=== PATIENT | male | born 1945 | race Caucasian/White ===

== ENCOUNTER → 2018-01-28 15:22 | Outpatient (CLI) | payer MEDICARE, OTHER, SELFPAY ==
[2018-01-28 15:57] LABS: Abs Immature Grans 0.02 k/cumm (0.0-0.09); Absolute Basophil Count 0.01 k/cumm (0.0-0.2); Absolute Eosinophil Count 0.35 k/cumm (0.0-0.7); Absolute Lymphocyte Count 1.21 k/cumm (1.2-3.4); Absolute Monocyte Count 0.42 k/cumm (0.11-0.7); Absolute Neutrophil Count 4.27 k/cumm (1.2-6.7); Basophils % 0.2; Eosinophils % 5.6; HCT 40.1 % (40.0-50.0); HGB 13.3 g/dL (13.5-17.5); Immature Grans % 0.3; Lymphocytes % 19.3; Mean Corp. HGB Concentration 33.2 g/dL (32.0-36.0); Mean Corpuscular Hemoglobin 30.9 pg (27.0-33.0); Mean Platelet Volume 10.1 fL (8.0-11.0); Monocytes % 6.7; Neutrophils % 67.9; Platelet Count 201 x1000/uL (130-400); RBC 4.31 m/cumm (4.50-6.00); RBC Distribution Width 13.1 % (11.8-14.1); White Blood Cell Count 6.28 k/cumm (4.4-10.8)
[2018-01-28 16:56] LABS: Iron 59 ug/dL (50-175)
[2018-01-28 17:21] LABS: ALT 22 U/L (12-78); AST 17 U/L (15-37); Albumin 4.1 g/dL (3.4-5.0); Alkaline Phosphatase 69 U/L (46-116); Anion Gap 9.8 mmol/L (3-11); BUN 30 mg/dL (7-18); Bilirubin, Total 0.3 mg/dL (0.2-1.0); CO2 24.2 mmol/L (21.0-32.0); CREATININE 1.43 mg/dL (0.70-1.30); Calcium 8.5 mg/dL (8.5-10.1); Chloride 103 mmol/L (98-107); Estimated GFR 48.48 (mL/min/1.73m2); Ferritin 125 ng/mL (8-388); Glucose 111 mg/dL (70-100); Potassium 4.7 mmol/L (3.5-5.1); Sodium 137 mmol/L (136-145); TSH 0.81 uIU/mL (0.358-3.74); Total Protein 7.2 g/dL (6.4-8.2); Vitamin B12 668 pg/mL (193-986)
[2018-01-30 13:16] LABS: Total Protein 6.8 g/dl (6.3-8.2)
== END ==
PROVIDERS: PCP Family Medicine; Visit Provider Family Medicine
DX: R53.83 Other fatigue (principal); E53.8 Deficiency of other specified B group vitamins; I25.810 Atherosclerosis of coronary artery bypass graft(s) without angina pectoris; R79.89 Other specified abnormal findings of blood chemistry
CPT/HCPCS: 36415; 80053; 82607; 82728; 83540; 84165; 84443; 85025

== ENCOUNTER 2018-03-07 13:40 | Outpatient (CLI) | payer MEDICARE, OTHER, SELFPAY ==
[2018-03-07 14:58] LABS: Anion Gap 5.3 mmol/L (3-11); BUN 21 mg/dL (7-18); CO2 29.7 mmol/L (21.0-32.0); CREATININE 1.28 mg/dL (0.70-1.30); Calcium 8.6 mg/dL (8.5-10.1); Chloride 105 mmol/L (98-107); Estimated GFR 55.09 (mL/min/1.73m2); Glucose 88 mg/dL (70-100); Potassium 4.8 mmol/L (3.5-5.1); Sodium 140 mmol/L (136-145)
== END 2018-03-07 14:00 ==
PROVIDERS: PCP Family Medicine; Visit Provider Family Medicine
DX: R79.89 Other specified abnormal findings of blood chemistry (principal)
CPT/HCPCS: 36415; 80048

== ENCOUNTER 2018-04-02 13:13 | Outpatient (CLI) | payer MEDICARE, OTHER, SELFPAY ==
--- NOTE | 2018-04-02 13:08 | DI.RAD_ITS ---
SYMPTOMS/DIAGNOSIS: RT KNEE PAIN RIGHT KNEE: AP and PA projections of the right knee reveal medial tibiofemoral joint space narrowing, articular sclerosis and mild periarticular hypertrophic spurring. The findings consistent with severe DJD.
== END 2018-04-02 13:33 ==
PROVIDERS: PCP Family Medicine; Referring Provider Family Medicine; Visit Provider Student in an Organized Health Care Education/Training Program
DX: M25.561 Pain in right knee (principal); M17.11 Unilateral primary osteoarthritis, right knee
CPT/HCPCS: 20610; 99204; 99214; 73560; J1040

== ENCOUNTER 2018-06-02 09:01 | Outpatient (CLI) | payer MEDICARE, OTHER, SELFPAY ==
[2018-06-02 11:14] LABS: HCT 40.1 % (40.0-50.0); HGB 13.1 g/dL (13.5-17.5); Mean Corp. HGB Concentration 32.7 g/dL (32.0-36.0); Mean Corpuscular Hemoglobin 30.9 pg (27.0-33.0); Mean Corpuscular Volume 94.6 fL (80-95); Mean Platelet Volume 10.4 fL (8.0-11.0); Platelet Count 179 x1000/uL (130-400); RBC 4.24 m/cumm (4.50-6.00); RBC Distribution Width 13.5 % (11.8-14.1)
[2018-06-02 11:55] LABS: ALT 18 U/L (12-78); AST 12 U/L (15-37); Albumin 3.9 g/dL (3.4-5.0); Alkaline Phosphatase 59 U/L (46-116); Anion Gap 6.6 mmol/L (3-11); BUN 17 mg/dL (7-18); Bilirubin, Total 0.4 mg/dL (0.2-1.0); CO2 28.4 mmol/L (21.0-32.0); CREATININE 1.19 mg/dL (0.70-1.30); Calcium 8.9 mg/dL (8.5-10.1); Chloride 106 mmol/L (98-107); Cholesterol 114 mg/dL (50-200); Estimated GFR 59.76 (mL/min/1.73m2); Ferritin 63 ng/mL (8-388); Glucose 87 mg/dL (70-100); HDL Cholesterol 32 mg/dL (40-60); LDL CHOLESTEROL 45 mg/dL (<100); Potassium 4.7 mmol/L (3.5-5.1); Sodium 141 mmol/L (136-145); Total Protein 6.6 g/dL (6.4-8.2); Triglyceride 232 mg/dL (30-150)
[2018-06-02 14:11] LABS: Iron 56 ug/dL (50-175); Total Iron Binding Capacity 274 ug/dL (250-450); Transferrin Sat 20 % (20-55)
== END 2018-06-02 09:21 ==
PROVIDERS: PCP Family Medicine; Visit Provider Family Medicine
DX: D64.9 Anemia, unspecified (principal); I10 Essential (primary) hypertension; I25.10 Atherosclerotic heart disease of native coronary artery without angina pectoris; I48.91 Unspecified atrial fibrillation
CPT/HCPCS: 36415; 80053; 80061; 83721; 85027; 82728; 83540; 83550

== ENCOUNTER 2018-07-02 00:11 | Outpatient (CLI) | payer MEDICARE, SELFPAY ==
--- NOTE | 2018-07-02 08:30 | ETT_ITS ---
*[facility]* *[facility]* [address] [place] [address] Stress Electrocardiography Sam protocol Date of study: 07/02/2018 *PATIENT PRESENTATION* Height: 170.2cm (67in) Blood Pressure: Weight: 88.6kg (195lb) BSA: 2.07m^2 Referring physician: Deny Kimball Ordering physician: Deny Kimball Impressions: Normal study after maximal exercise. Summary: 1. Stress ECG conclusions: The stress ECG is negative. Wheeler treadmill score: 9. This score predicts a low risk of cardiac events. 2. Stress: The target heart rate was achieved. The heart rate response to stress is normal. There is a normal resting blood pressure with an appropriate response to stress. The patient experienced no chest pain during stress. Exercise capacity is above normal for age. Indication: I25.10, Appropriate Use Criteria: A (Appropriate). History: REASON FOR TESTING: STRESS TEST ORDERED BY DR. KIMBALL FOR PATIENT WITH CORONARY ARTERY DISEASE. TESTING TODAY FOR PRE OP SCREENING FOR KNEE SURGERY AND CDL SCREENING. SIGNIFICANT PAST MEDICAL HISTORY: S/P CABG IN NOVEMBER 2016/AORTIC VALVE REPLACEMENT WITH POSTOP COMPLICATION OF ATRIAL FIBRILLATION. STENT PLACEMENT. OBSTRUCTIVE SLEEP APNEA. SMOKING STATUS: REMOTE HISTORY--5 YEAR PACK PER DAY HISTORY WHEN PATIENT WAS IN HIS 20'S. EXERCISE ROUTINE: DAILY ADL'S AND 20-30 MINUTES OF YOGA PER DAY. Risk factors: Family history of coronary artery disease. Dyslipidemia. Cholesterol: 114mg/dl. HDL: 32mg/dl. LDL: 45mg/dl. Triglycerides: 232mg/dl. ALLERGIES: TERBINAFINE, DICLOFENAC. MEDICATIONS: ASPIRIN 325 MG DAILY, TIMOLOL MALEATE DAILY, RANITIDINE 150 MG DAILY, TRIAMCINOLONE ACETONIDE TID PRN, VITAMIN D 2000 UNITS DAILY, NITROGLYCERINE 0.4 MG SUBLINGGUAL PRN, VITAMIN B 12 IM 1000 MCG EVERY MONTH, SILDENAFIL PRN, MELOXICAM 25 MG DAILY PRN, FERROUS GLYCONATE 240 MG DAILY, LOVASTATIN 10 MG DAILY, GABAPENTIN 800 MG HS, LISINOPRIL 5 MG DAILY, PRAMIPEXOLE 0.125 MG HS, CITALOPRAM 30 MG DAILY, MIRTAZAPINE 7.5 MG DAILY, ZANTAC 75 MG DAILY, TYLENOL 1000 MG PRN, BLUCOSAMINE 500 MG BID. Protocol: Sam protocol. Baseline ECG: SINUS RHYTHM. T WAVE INVERSIONS IN INFERIOR LEADS. MILD ST ELEVATION NOTED IN LEADS V1, V2 & V3. HR [address] and T wave changes. Stress protocol: + +---+ + !Stage !HR !BP (mmHg) ! + +---+ + !Baseline supine !77 !140/80 (100)! + +---+ + !Baseline standing !73 !148/78 (101)! + +---+ + !Stage I; 1.7mph, 10degrees; 3 min !98 !164/70 (101)! + +---+ + !Stage II; 2.5mph, 12degrees; 3 min!105!160/78 (105)! + +---+ + !Recovery; 1 min !103!218/90 (133)! + +---+ + !Recovery; 3 min !86 !170/90 (117)! + +---+ + * Stress results: STRESS TEST ENDED 9 IN MINUTES DUE TO KNEE DISCOMFORT AND FATIGUE NORMAL HEART RATE AND BLOOD PRESSURE RESPONSE TO EXERCISE MAX HEART RATE = 128 87 % OF TARGET HEART RATE APPROXIMATE MET'S ACHIEVED = 10.16 RARE PVC NO ANGINA NO SIGNIFICANT ST SEGMENT CHANGES ABOVE AVERAGE FUNCTIONAL CAPACITY FOR EXERCISE Maximal heart rate during stress was 128bpm (88% of maximal predicted heart rate). The maximal predicted heart rate was 146bpm. The target heart rate was achieved. The heart rate response to stress is normal. There is a normal resting blood pressure with an appropriate response to stress. The rate-pressure product for the peak heart rate and blood pressure was 57052mi Hg/min. The patient experienced no chest pain during stress. Exercise capacity is above normal for age. Stress ECG: The stress ECG is negative. Wheeler treadmill score: 9. This score predicts a low risk of cardiac events. Study data: Lionel Arellano MD supervised and was readily available during the procedure. This study was interpreted by [facility]. Study status: Routine. Consent: The risks, benefits, and alternatives to the procedure were explained to the patient and informed consent was obtained. Procedure: Initial setup. A baseline ECG was recorded. Surface ECG leads and manual cuff blood pressure measurements were monitored. Heart sounds: Normal. Lung sounds: Normal. Treadmill exercise testing was performed using the Sam protocol. Study completion: The patient tolerated the procedure well and was discharged from the lab. Discharge: The patient left the laboratory in stable condition. Birthdate: Patient birthdate: 1945. Sex: Gender: male. Study date: Study date: 07/02/2018. Study time: 08:30 AM. Signature Documentation: The Stress ECG portion of this study was interpreted by Lionel Arellano MD. Electronically signed by Lionel Arellano 07/02/2018 10:49
== END 2018-07-02 00:31 ==
PROVIDERS: PCP Family Medicine; Visit Provider Internal Medicine Cardiovascular Disease
DX: I25.10 Atherosclerotic heart disease of native coronary artery without angina pectoris (principal); I48.91 Unspecified atrial fibrillation; E78.5 Hyperlipidemia, unspecified; Z95.2 Presence of prosthetic heart valve; Z95.1 Presence of aortocoronary bypass graft
CPT/HCPCS: 93016; 93018; 93017

== ENCOUNTER → 2018-07-11 10:10 | Outpatient (BNVA) | payer MEDICARE, OTHER, SELFPAY | PROVIDERS: PCP Family Medicine; Visit Provider Internal Medicine Cardiovascular Disease | DX: Z01.810 Encounter for preprocedural cardiovascular examination (principal); I25.10 Atherosclerotic heart disease of native coronary artery without angina pectoris; Z95.2 Presence of prosthetic heart valve; E78.5 Hyperlipidemia, unspecified; I10 Essential (primary) hypertension | CPT/HCPCS: 99214 ==

== ENCOUNTER 2018-09-17 10:57 | Outpatient (CLI) | payer MEDICARE, OTHER, SELFPAY ==
[2018-09-17 11:32] LABS: C-Reactive Protein 0.35 mg/dL (0.0-0.3)
[2018-09-17 12:33] LABS: ESR 15 MM/HR (1-20)
== END 2018-09-17 11:17 ==
PROVIDERS: PCP Family Medicine; Visit Provider Orthopaedic Surgery
DX: Z96.651 Presence of right artificial knee joint (principal)
CPT/HCPCS: 36415; 85652; 86140

== ENCOUNTER → 2018-10-31 14:23 | Outpatient (BNVA) | payer MEDICARE, OTHER, SELFPAY | PROVIDERS: PCP Family Medicine; Visit Provider Internal Medicine Cardiovascular Disease | DX: I25.10 Atherosclerotic heart disease of native coronary artery without angina pectoris (principal); I10 Essential (primary) hypertension; Z95.3 Presence of xenogenic heart valve; Z99.89 Dependence on other enabling machines and devices; Z96.651 Presence of right artificial knee joint | CPT/HCPCS: 99213 ==

== ENCOUNTER 2018-11-12 11:42 | Outpatient (CLI) | payer MEDICARE, OTHER, SELFPAY ==
--- NOTE | 2018-11-12 12:40 | MERGE_ITS ---
*[facility]* *[facility]* [address] [place] [address] Date of study: 11/12/2018 Transthoracic Echocardiography M-mode, complete 2D, complete spectral Doppler, and color Doppler *STUDY CONCLUSIONS* Impressions: Marginal increase of trans-prosthetic gradients, most likely due to higher cardiac output. Otherwise no significant changes compared to [place] [facility] [place] Summary: 1. Left ventricle: The cavity size was normal. Wall thickness was increased in a pattern of mild LVH. Systolic function was normal. The estimated ejection fraction was 60-65%. Wall motion was normal; there were no regional wall motion abnormalities. Doppler parameters are consistent with high ventricular filling pressure. 2. Aortic valve: A 23 mm bioprosthesis was present and functioning normally. Transvalvular velocity was increased more than expected, due to high cardiac output. There was no stenosis. There was mild regurgitation. Peak velocity (S): 3.1m/sec (postop 2.6 m/sec) Mean gradient (S): 21.1mm Hg (postop 14 mmHg). VTI ratio of LVOT to aortic valve: 0.43. 3. Left atrium: The atrium was mildly dilated. 4. Right ventricle: The cavity size was normal. Wall thickness was normal. Systolic function was normal. *PATIENT PRESENTATION* Height: 170.2cm ((67in) ) S/D Pressure: 118 / 65 Weight: 89.8kg ((197.6lb) ) BSA: 2.09m^2 Test start time: 12:45 PM. Test stop time: 01:45 PM. PERFORMING Unknown ORDERING Deny Kimball REFERRING Deny Kimball CONSULTING Swetha Chaidez [facility] ADVANCED NURSING PROFESSOR Shiela Hoppe, RT De La CruzR)(CT), [facility] *PROCEDURE DATA* Procedure information: The patient was identified by two identifiers. This study was interpreted by [facility]. Pertinent images and digital data are archived for permanent storage and are available for subsequent review. Comparison was made to the study of 12/08/2015. Study status: Routine. Transthoracic echocardiography. M-mode, complete 2D, complete spectral Doppler, and color Doppler. A Transthoracic Echocardiogram was performed. Scanning was performed from the parasternal, apical, subcostal, and suprasternal notch acoustic windows. Images were obtained using an [id number] cardiac ultrasound machine. Image quality was adequate. Study completion: The patient tolerated the procedure well. There were no complications. History: PMH: CAD AVR AI i35.1. *CARDIAC ANATOMY* Left ventricle: The cavity size was normal. Wall thickness was increased in a pattern of mild LVH. Systolic function was normal. The estimated ejection fraction was 60-65%. Wall motion was normal; there were no regional wall motion abnormalities. Findings consistent with diastolic dysfunction. Doppler parameters are consistent with high ventricular filling pressure. Aortic valve: A 23 mm bioprosthesis was present and functioning normally. Mobility was not restricted. Doppler: Transvalvular velocity was increased more than expected, due to high cardiac output. There was no stenosis. There was mild regurgitation. VTI ratio of LVOT to aortic valve: 0.43. Valve area (VTI): 1.3cm^2. Indexed valve area (VTI): 0.6cm^2/m^2. Peak velocity ratio of LVOT to aortic valve: 0.42. Valve area (Vmax): 1.2cm^2. Indexed valve area (Vmax): 0.6cm^2/m^2. Mean velocity ratio of LVOT to aortic valve: 0.44. Valve area (Vmean): 1.3cm^2. Indexed valve area (Vmean): 0.6cm^2/m^2. Mean gradient (S): 21.1mm Hg (postop 14 mmHg). Peak gradient (S): 37.7mm Hg. Aorta: Aortic root: The aortic root was normal in size. Ascending aorta: The ascending aorta was normal in size. Mitral valve: Mildly calcified annulus. Mobility was not restricted. Doppler: Transvalvular velocity was within the normal range. There was no evidence for stenosis. There was trivial regurgitation. Valve area by pressure half-time: 3.5cm^2. Indexed valve area by pressure half-time: 1.7cm^2/m^2. Peak gradient (D): 6.4mm Hg. Left atrium: The atrium was mildly dilated. Right ventricle: The cavity size was normal. Wall thickness was normal. Systolic function was normal. Pulmonic valve: Doppler: Transvalvular velocity was within the normal range. There was no evidence for stenosis. There was no significant regurgitation. Peak gradient (S): 4.2mm Hg. Tricuspid valve: Structurally normal valve. Doppler: Transvalvular velocity was within the normal range. There was no evidence for stenosis. There was no significant regurgitation. Pulmonary artery: Pulmonary systolic pressure was within the normal range, in the range of 30mm Hg to 35mm Hg. Right atrium: The atrium was normal in size. Pericardium: There was no pericardial effusion. Systemic veins: Inferior vena cava: Well visualized. The vessel was patent and normal in size. The respirophasic diameter changes were in the normal range (greater than or equal to 50%). Baseline ECG: Normal sinus rhythm. Measurements Left ventricle Value Reference LV ID, ED, PLAX 4.3 cm 3.5 - 6.0 LV ID, ES, PLAX 2.9 cm 2.1 - 4.0 LV PW thickness, ED, PLAX 1.1 cm LV end-diastolic volume, 1-p A2C 82 ml LV ejection fraction, 1-p A2C 55 % LV end-diastolic volume, 1-p A4C 105 ml LV ejection fraction, 1-p A4C 57 % LV e', lateral 0.069 m/sec LV E/e', lateral 18 LV e', medial 0.074 m/sec LV E/e', medial 17 LV e', average 0.071 m/sec LV E/e', average 18 Ventricular septum Value Reference IVS thickness, ED, PLAX 1.2 cm LVOT Value Reference LVOT ID, A-P 1.9 cm LVOT area 2.9 cm^2 LVOT peak velocity, S 1.28 m/sec LVOT mean velocity, S 0.97 m/sec LVOT VTI, S 29.0 cm LVOT peak gradient, S 6.5 mm Hg LVOT mean gradient, S 4.3 mm Hg Stroke volume (SV), LVOT DP 85 ml Stroke index (SV/bsa), LVOT DP 41 ml/m^2 Aortic valve Value Reference Aortic valve peak velocity, S 3.1 m/sec Aortic valve mean velocity, S 2.19 m/sec Aortic valve VTI, S 67.0 cm Aortic mean gradient, S 21.1 mm Hg Aortic peak gradient, S 37.7 mm Hg VTI ratio, LVOT/AV 0.43 Aortic valve area, VTI 1.3 cm^2 Velocity ratio, peak, LVOT/AV 0.42 Aortic valve area, peak velocity 1.2 cm^2 Velocity ratio, mean, LVOT/AV 0.44 Aortic valve area, mean velocity 1.3 cm^2 Aortic valve area/bsa, mean velocity 0.6 cm^2/m^2 Aorta Value Reference Aortic root ID, ED 3.4 cm Ascending aorta ID, A-P, S 3.1 cm Left atrium Value Reference LA ID, A-P, ES 5.4 cm LA ID/bsa, A-P (H) 2.6 cm/m^2 <=2.2 LA area, ES, A4C (H) 23.5 cm^2 8.8 - 23.4 LA area, ES, A2C 23 cm^2 LA volume/bsa, ES, 1-p A4C 35 ml/m^2 LA volume, ES, 2-p 66 ml LA volume/bsa, ES, 2-p 32 ml/m^2 LA/aortic root ratio 1.6 Mitral valve Value Reference Mitral E-wave peak velocity 1.27 m/sec Mitral A-wave peak velocity 1.14 m/sec Mitral deceleration time 218 ms 150 - 230 Mitral pressure half-time 63 ms Mitral peak gradient, D 6.4 mm Hg Mitral E/A ratio, peak 1.11 Mitral valve area, PHT, DP 3.5 cm^2 Tricuspid valve Value Reference Tricuspid regurg peak velocity 2.8 m/sec Tricuspid peak RV-RA gradient 31.1 mm Hg Right atrium Value Reference RA area, ES, A4C 19.3 cm^2 8.3 - 19.5 Pulmonic valve Value Reference Pulmonic peak gradient, S 4.2 mm Hg Legend: (L) and (H) darwin values outside specified reference range. I have personally reviewed the images and have reviewed and edited the reported findings. Electronically signed by Lionel Arellano 11/12/2018 14:24
== END 2018-11-12 12:02 ==
PROVIDERS: PCP Family Medicine; Visit Provider Internal Medicine Cardiovascular Disease
DX: I25.10 Atherosclerotic heart disease of native coronary artery without angina pectoris (principal); I35.1 Nonrheumatic aortic (valve) insufficiency; Z95.2 Presence of prosthetic heart valve; I10 Essential (primary) hypertension; E78.5 Hyperlipidemia, unspecified
CPT/HCPCS: 93306

== ENCOUNTER 2018-12-01 09:48 | Outpatient (CLI) | payer MEDICARE, OTHER, SELFPAY ==
[2018-12-01 10:52] LABS: Abs Immature Grans 0.03 k/cumm (0.0-0.09); Absolute Basophil Count 0.01 k/cumm (0.0-0.2); Absolute Eosinophil Count 0.25 k/cumm (0.0-0.7); Absolute Lymphocyte Count 0.98 k/cumm (1.2-3.4); Absolute Monocyte Count 0.52 k/cumm (0.11-0.7); Absolute Neutrophil Count 4.05 k/cumm (1.2-6.7); Basophils % 0.2; Eosinophils % 4.3; HCT 40.7 % (40.0-50.0); HGB 13.5 g/dL (13.5-17.5); Immature Grans % 0.5; Lymphocytes % 16.8; Mean Corp. HGB Concentration 33.2 g/dL (32.0-36.0); Mean Corpuscular Hemoglobin 30.7 pg (27.0-33.0); Mean Corpuscular Volume 92.5 fL (80-95); Mean Platelet Volume 10.1 fL (8.0-11.0); Monocytes % 8.9; Neutrophils % 69.3; Platelet Count 189 x1000/uL (130-400); RBC Distribution Width 13.2 % (11.8-14.1); White Blood Cell Count 5.84 k/cumm (4.4-10.8)
[2018-12-01 11:39] LABS: Iron 74 ug/dL (50-175); Total Iron Binding Capacity 266 ug/dL (250-450); Transferrin Sat 28 % (20-55)
[2018-12-01 11:51] LABS: ALT 23 U/L (12-78); AST 15 U/L (15-37); Albumin 3.9 g/dL (3.4-5.0); Alkaline Phosphatase 65 U/L (46-116); Anion Gap 7.8 mmol/L (3-11); BUN 17 mg/dL (7-18); Bilirubin, Total 0.3 mg/dL (0.2-1.0); CO2 29.2 mmol/L (21.0-32.0); CREATININE 1.05 mg/dL (0.70-1.30); Calcium 8.7 mg/dL (8.5-10.1); Chloride 104 mmol/L (98-107); Ferritin 72 ng/mL (8-388); Glucose 94 mg/dL (70-100); Potassium 4.6 mmol/L (3.5-5.1); Sodium 141 mmol/L (136-145); Total Protein 6.8 g/dL (6.4-8.2)
== END 2018-12-01 10:08 ==
PROVIDERS: PCP Family Medicine; Visit Provider Family Medicine
DX: I25.10 Atherosclerotic heart disease of native coronary artery without angina pectoris (principal); Z86.2 Personal history of diseases of the blood and blood-forming organs and certain disorders involving the immune mechanism; R53.83 Other fatigue
CPT/HCPCS: 36415; 80053; 82728; 83540; 83550; 85025

== ENCOUNTER 2018-12-02 14:46 | Outpatient (CLI) | payer MEDICARE, OTHER, SELFPAY ==
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
== END 2018-12-02 15:06 ==
PROVIDERS: PCP Family Medicine; Visit Provider Family Medicine
DX: M25.572 Pain in left ankle and joints of left foot (principal); M19.072 Primary osteoarthritis, left ankle and foot
CPT/HCPCS: 73610

== ENCOUNTER → 2018-12-22 14:42 | Outpatient (BNVA) | payer MEDICARE, OTHER, SELFPAY | PROVIDERS: PCP Family Medicine; Referring Provider Family Medicine; Visit Provider Student in an Organized Health Care Education/Training Program | DX: M19.072 Primary osteoarthritis, left ankle and foot (principal) | CPT/HCPCS: 20605; 99203; 99214; J1030 ==

== ENCOUNTER → 2019-02-02 14:55 | Outpatient (BNVA) | payer MEDICARE, OTHER, SELFPAY | PROVIDERS: PCP Family Medicine; Referring Provider Family Medicine; Visit Provider Student in an Organized Health Care Education/Training Program | DX: M19.072 Primary osteoarthritis, left ankle and foot (principal); Z98.890 Other specified postprocedural states | CPT/HCPCS: 99213 ==

== ENCOUNTER → 2019-03-26 09:07 | Outpatient (BNVA) | payer MEDICARE, OTHER, SELFPAY | PROVIDERS: PCP Family Medicine; Referring Provider Family Medicine; Visit Provider Student in an Organized Health Care Education/Training Program | DX: M19.072 Primary osteoarthritis, left ankle and foot (principal) | CPT/HCPCS: 20605; 99213; J1040 ==

== ENCOUNTER → 2019-07-02 08:39 | Outpatient (BNVA) | payer MEDICARE, OTHER, SELFPAY | PROVIDERS: PCP Family Medicine; Referring Provider Family Medicine; Visit Provider Student in an Organized Health Care Education/Training Program | DX: M19.072 Primary osteoarthritis, left ankle and foot (principal); Z98.890 Other specified postprocedural states | CPT/HCPCS: 99213 ==

== ENCOUNTER → 2019-09-01 09:01 | Outpatient (BNVA) | payer MEDICARE, OTHER, SELFPAY | PROVIDERS: PCP Family Medicine; Referring Provider Family Medicine; Visit Provider Internal Medicine Cardiovascular Disease | DX: I25.10 Atherosclerotic heart disease of native coronary artery without angina pectoris (principal); Z95.2 Presence of prosthetic heart valve; I10 Essential (primary) hypertension | CPT/HCPCS: 99204; 99215 ==

== ENCOUNTER 2019-11-11 03:28 | Outpatient (CLI) | payer MEDICARE, OTHER, SELFPAY ==
[2019-11-11 14:29] LABS: ALT 26 U/L (16-63); AST 16 U/L (15-37); Albumin 4.1 g/dL (3.4-5.0); Alkaline Phosphatase 60 U/L (46-116); Anion Gap 9.7 mmol/L (3-11); BUN 22 mg/dL (7-18); Bilirubin, Total 0.3 mg/dL (0.2-1.0); CO2 25.3 mmol/L (21.0-32.0); CREATININE 1.32 mg/dL (0.70-1.30); Calcium 8.6 mg/dL (8.5-10.1); Chloride 103 mmol/L (98-107); Estimated GFR 52.88 (mL/min/1.73m2); Glucose 128 mg/dL (74-106); Potassium 4.6 mmol/L (3.5-5.1); Sodium 138 mmol/L (136-145); Total Protein 6.9 g/dL (6.4-8.2)
[2019-11-12 11:50] LABS: PSA, Screening 10.6 ng/mL (0.0-6.5)
== END 2019-11-11 03:48 ==
PROVIDERS: PCP Family Medicine
DX: F41.1 Generalized anxiety disorder (principal); G47.33 Obstructive sleep apnea (adult) (pediatric); I10 Essential (primary) hypertension; K21.9 Gastro-esophageal reflux disease without esophagitis; N40.0 Benign prostatic hyperplasia without lower urinary tract symptoms; R53.83 Other fatigue; E03.9 Hypothyroidism, unspecified; Z12.5 Encounter for screening for malignant neoplasm of prostate
CPT/HCPCS: 36415; 80053; 84153

== ENCOUNTER → 2019-11-25 13:04 | Outpatient (BNVA) | payer MEDICARE, OTHER, SELFPAY | PROVIDERS: PCP Family Medicine; Referring Provider Family Medicine; Visit Provider Nurse Practitioner Gerontology | DX: R35.1 Nocturia (principal); R53.83 Other fatigue; R97.20 Elevated prostate specific antigen [PSA]; Z80.42 Family history of malignant neoplasm of prostate; I10 Essential (primary) hypertension | CPT/HCPCS: 81003; 99204; 99215 ==

== ENCOUNTER 2019-12-02 15:33 | Outpatient (CLI) | payer MEDICARE, OTHER, SELFPAY ==
[2019-12-03 09:15] LABS: PSA, Screening 12.3 ng/mL (0.0-6.5)
== END 2019-12-02 15:53 ==
PROVIDERS: PCP Family Medicine; Visit Provider Nurse Practitioner Gerontology
DX: N40.0 Benign prostatic hyperplasia without lower urinary tract symptoms (principal); Z12.5 Encounter for screening for malignant neoplasm of prostate
CPT/HCPCS: 84153

== ENCOUNTER 2019-12-03 16:57 | Emergency (ER) | payer MEDICARE, OTHER, SELFPAY ==
[2019-12-03 17:16] VITALS: BP 151/78; PULSE 104; RESP 18; TEMP 36.9; O2SAT 97
--- NOTE | 2019-12-03 17:38 | ED.GENADUL_ITS ---
Discharge Plan Disposition Patient Disposition: HOME Condition: Improving Discharge Details Chief Complaint: Orthopedic Clinical Impression: Patellar bursitis of left knee Primary Care Provider: Swetha Chaidez ED Provider: Shabbir Stuart Home Meds and New Rx's Prescriptions: New cephalexin 500 mg capsule 500 mg PO TID 7 Days Qty: 21 RF: 0 Continued acetaminophen [Tylenol Extra Strength] 500 mg tablet 1,000 mg PO Q6H PRNRF: 0 glucosamine HCl 750 mg tablet 1,500 mg PO DAILY RF: 0 acetylcysteine 600 mg capsule 1,200 mg PO BID RF: 0 mupirocin 2 % ointment 1 applic TP TID Qty: 15 RF: 0 aspirin 81 mg tablet,delayed release (DR/EC) 81 mg PO DAILY RF: 0 latanoprost 0.005 % drops 1 drp OP QPM RF: 0 Galvez See Rx Instructions .ROUTE .COMPLEX RF: 0 nitroglycerin 0.4 MG tablet, sublingual 0.4 mg Sublingual PRN Qty: 25 RF: 2 (DME) BD Luer-Sofia Syringe 3 mL 21 gauge x 1 syringe 1 ea Miscellaneous monthly Qty: 15 RF: 0 citalopram 40 mg tablet 40 mg PO DAILY Qty: 90 RF: 4 sildenafil 100 mg tablet 50 - 100 mg PO DAILY PRN (Reason: sexual activity) Qty: 10 RF: 2 lovastatin 20 mg tablet 20 mg PO DAILY Qty: 90 RF: 4 ketoconazole 2 % cream 1 applic TP DAILY PRN (Reason: rash on arm) Qty: 60 RF: 2 pramipexole 0.125 mg tablet 0.125 mg PO HS Qty: 90 RF: 3 bupropion HCl 300 mg tablet extended release 24 hr 300 mg PO QAM Qty: 90 RF: 4 bupropion HCl 150 mg tablet extended release 24 hr 150 mg PO QAM Qty: 90 RF: 4 gabapentin 800 mg tablet 800 mg PO HS Qty: 90 RF: 4 lisinopril 10 mg tablet 10 mg PO DAILY Qty: 90 RF: 4 mirtazapine 7.5 mg tablet 1.875 mg PO QHS Qty: 30 RF: 11 meloxicam 15 mg tablet 7.5 - 15 mg PO DAILY PRN (Reason: joint pain) Qty: 90 RF: 0 cyanocobalamin (vitamin B-12) 1,000 mcg/mL solution 1,000 mcg IJ Q MONTH Qty: 3 RF: 3 ferrous gluconate 240 mg (27 mg iron) tablet 240 mg PO DAILY Qty: 90 RF: 2 levofloxacin [Levaquin] 500 mg tablet 500 mg PO DAILY Qty: 3 RF: 0 cholecalciferol (vitamin D3) 1,000 UNITS tablet 2,000 units PO DAILY RF: 0 Discharge Instructions Instructions: Patellar Tendinitis (ED) Additional Instructions: Wear Wesley bandage for comfort while up and out of the house. While at home rest, ice, elevate the leg to reduce pain and swelling. May use Tylenol as needed for discomfort. Use ice 20 to 30 minutes at a time. Take antibiotics as prescribed. Please return if you develop pain with movement of the knee, fever or shaking chill. Continue your regular medications We will refer you to orthopedic clinic for follow-up. Please call the office early next week for an appointment time. The office number is [phone] Medical Decision Making 74-year-old male presents from home. He fell with a blunt force trauma to his left anterior knee on Saturday of this week and developed slow swelling as well as dependent erythema and mild pain. The joint is not unstable, there is anterior/prepatellar swelling present. Referred for x-ray which shows a moderate joint effusion, no evidence of fracture or dislocation. There is fragmentation of spurs and ossifications and minimal osteoarthritis present. The soft tissue swelling does appear to be anterior to the areas of ossification within the patellar tendon. Given the patient's erythematous skin changes and slight abrasions to the skin, must consider developing cellulitis and I will place him on a course of Keflex. I do think he has a traumatic bursitis/tendinitis and we will treat him conservativel;y we will ask him to follow-up in orthopedic clinic for recheck. HPI General Mode of arrival: ambulatory . Date/Time Provider Initiated Documentation: 12/03/19 17:14 . Limitations to Documentation: no limitations . Information obtained by: patient . History of Present Illness 74 year old M presents to the emergency department with the chief complaint of Left knee contusion, pain and swelling, described as moderate, Quality is described as dull and constant, and is localized to the left and lower extremity. Patient started experiencing this day(s) and it has been constant. No relieving factors improve symptom(s), No exacerbating factors reported . Patient notes denies fever/chills. Patient did receive the following treatments prior to arrival, none Related Data Home Medications Medication Instructions Recorded Confirmed cholecalciferol (vitamin D3) 2,000 units PO DAILY 06/20/16 12/03/19 nitroglycerin 0.4 mg SUBLINGUAL PRN #25 tab 11/22/16 12/03/19 glucosamine HCl 750 mg tablet 1,500 mg PO DAILY tab 07/11/18 12/03/19 mupirocin 2 % topical ointment 1 applic TP TID #15 gm 09/11/18 11/25/19 syringe with needle 3 mL 21 gauge #15 ndl 10/09/18 11/25/19 x 1 citalopram 40 mg tablet 40 mg PO DAILY #90 tab 10/27/18 12/03/19 acetaminophen 500 mg tablet 1,000 mg PO Q6H PRN tab 10/31/18 12/03/19 sildenafil 100 mg tablet 50 - 100 mg PO DAILY PRN #10 tab 12/11/18 12/03/19 ketoconazole 2 % topical cream 1 applic TP DAILY PRN #60 gm 04/15/19 11/25/19 lovastatin 20 mg tablet 20 mg PO DAILY #90 tab-cap 04/15/19 11/25/19 pramipexole 0.125 mg tablet 0.125 mg PO HS #90 tab-cap 04/24/19 12/03/19 bupropion HCl 150 mg 24 hr tablet, 150 mg PO QAM #90 tab 06/04/19 12/03/19 extended release bupropion HCl 300 mg 24 hr tablet, 300 mg PO QAM #90 tab 06/04/19 12/03/19 extended release gabapentin 800 mg tablet 800 mg PO HS #90 tab-cap 07/23/19 12/03/19 lisinopril 10 mg tablet 10 mg PO DAILY #90 tab-cap 07/23/19 12/03/19 mirtazapine 7.5 mg tablet 1.875 mg PO QHS #30 tab 08/06/19 12/03/19 cyanocobalamin (vitamin B-12) 1,000 mcg IJ Q MONTH #3 vial 09/17/19 12/03/19 1,000 mcg/mL injection solution meloxicam 15 mg tablet 7.5 - 15 mg PO DAILY PRN #90 09/17/19 12/03/19 tab-cap ferrous gluconate 240 mg (27 mg 240 mg PO DAILY #90 tab 10/15/19 12/03/19 iron) tablet Galvez See Rx Instructions .ROUTE .COMPLEX 10/26/19 12/03/19 aspirin 81 mg tablet,delayed 81 mg PO DAILY 10/26/19 12/03/19 release latanoprost 0.005 % eye drops 1 drp OP QPM 10/26/19 12/03/19 acetylcysteine 600 mg capsule 1,200 mg PO BID cap 11/25/19 12/03/19 cephalexin 500 mg PO TID 7 Days #21 cap 12/03/19 levofloxacin 500 mg tablet 500 mg PO DAILY #3 tab 12/03/19 Previous Rx's Medication Instructions Recorded mupirocin 2 % topical ointment 1 applic TP TID #15 gm 09/11/18 syringe with needle 3 mL 21 gauge #15 ndl 10/09/18 x 1 citalopram 40 mg tablet 40 mg PO DAILY #90 tab 10/27/18 sildenafil 100 mg tablet 50 - 100 mg PO DAILY PRN #10 tab 12/11/18 ketoconazole 2 % topical cream 1 applic TP DAILY PRN #60 gm 04/15/19 lovastatin 20 mg tablet 20 mg PO DAILY #90 tab-cap 04/15/19 pramipexole 0.125 mg tablet 0.125 mg PO HS #90 tab-cap 04/24/19 bupropion HCl 150 mg 24 hr tablet, 150 mg PO QAM #90 tab 06/04/19 extended release bupropion HCl 300 mg 24 hr tablet, 300 mg PO QAM #90 tab 06/04/19 extended release gabapentin 800 mg tablet 800 mg PO HS #90 tab-cap 07/23/19 lisinopril 10 mg tablet 10 mg PO DAILY #90 tab-cap 07/23/19 mirtazapine 7.5 mg tablet 1.875 mg PO QHS #30 tab 08/06/19 cyanocobalamin (vitamin B-12) 1,000 mcg IJ Q MONTH #3 vial 09/17/19 1,000 mcg/mL injection solution meloxicam 15 mg tablet 7.5 - 15 mg PO DAILY PRN #90 04/02/20 tab-cap ferrous gluconate 240 mg (27 mg 240 mg PO DAILY #90 tab 10/15/19 iron) tablet cephalexin 500 mg PO TID 7 Days #21 cap 12/03/19 levofloxacin 500 mg tablet 500 mg PO DAILY #3 tab 12/03/19 Allergies Allergy/AdvReac Type Severity Reaction Status Date / Time terbinafine Allergy Intermediate Verified 12/03/19 17:22 diclofenac AdvReac Intermediate Diarrhea, Verified 12/03/19 17:22 UPSET STOMACH General Stated Complaint: Orthopedic PAWEL: 3 Review of Systems Narrative: 5 systems reviewed and otherwise negative. No other injury. No head/neck/back pain [facility] Medical History (Updated 12/03/19 @ 18:49 by Shabbir Stuart MD) Atherosclerosis of [place] coronary artery (Acute) mi 1991: negative nuclear stress test : echocardiogram:mild aortic stenosis/EF normal Diarrhea (Acute) Elevated PSA, between 10 and less than 20 ng/ml (Acute) Essential hypertension (Acute) Gastroesophageal reflux disease (Acute) Hyperlipidemia (Acute) Obstructive sleep apnea syndrome (Acute) CPAP POLST (Physician Orders for Life-Sustaining Treatment) (Acute) Surgical History Colonoscopy - MAC (06/25/16) History of aortic valve replacement (Acute ~2016) Hx of CABG (Chronic ~2016) Procedures CABGx3: [facility] [place] Aortic Valve replacement Stent placement Family History (Updated 10/27/19 @ 09:18 by Zaki Robins) Mother , age 59 Essential hypertension Heart disease Ovarian cancer Father , age 89 Diabetes Essential hypertension Heart disease Hyperlipidemia Stroke Prostate cancer Brother Essential hypertension Heart disease Hyperlipidemia Prostate cancer Maternal Grandfather No problems noted. Paternal Grandfather No problems noted. Maternal Grandmother No problems noted. Paternal Grandmother Essential hypertension Heart disease Son No problems noted. Son No problems noted. Social History (Updated 10/27/19 @ 09:17 by Zaki Robins) Smoking/Tobacco Use Status: Former Tobacco Use Alcohol Intake: current Alcohol Intake frequency: a few times a month Alcohol type: beer Drug use: Never Substance use type: does not use Counseling given: No Counseling provided: none Household members: spouse Pets and animals: Yes Pets and animals: cat(s) Do you think of yourself as: straight/heterosexual Current gender identity: male What is your relationship status?: How often do you talk on the phone with friends or family?: decline to answer How often do you get together with friends or relatives?: decline to answer How often do you attend sikh or restorationism services?: 1-3 times per year Do you belong to any clubs or organized social groups?: yes Panel score (0-1 are the most socially isolated patients): 2 What type of physical activity do you participate in: yoga Duration: 15-30 minutes/day Frequency: 1-2 times per week Leslie/Presybeterian: Episcopalian Special leslie needs: No Seatbelt use: sometimes Helmet use: Yes Helmet use: always Drive intox or ride w/intox dinkey driver: No Do you feel safe at home: Yes Do you feel safe in your relationship?: Yes Exam Narrative Exam Narrative: GEN: awake, alert, oriented 3. Pleasant, well groomed, interactive. HEAD: Normocephalic, atraumatic EYES: PERRL, EOMI CHEST/RESP: Nontender, clear to auscultation bilateral, no wheeze/rhonchi/rales CARDIOVASCULAR: RRR, mechanical click appreciated. 2+ Rad pulse bilateral ABDOMEN: Soft, nontender, no mass. +Bowel sounds EXT: Full ROM, left knee anterior inferior mild swelling and tenderness, the joint is fully mobile and there is no discomfort with movement. Motor graded 5 out of 5. There is left pretibial erythema that blanches to the touch. Small abrasion present. Neuro: Grossly normal neurologic exam, conversant, interactive. Psych: Speech fluent, thoughts congruent, affect normal Course Vital Signs Vital signs: Vital Signs Temperature 36.9 C 12/03/19 17:16 Pulse 104 H 12/03/19 17:16 Respiratory Rate 18 12/03/19 17:16 Blood Pressure 151/78 H 12/03/19 17:16 Pulse Oximetry 97 12/03/19 17:16 Temperature 36.9 C 12/03/19 17:16 Pulse 104 H 12/03/19 17:16 Respiratory Rate 18 12/03/19 17:16 Respiratory Effort 12/03/19 17:31 Blood Pressure 151/78 H 12/03/19 17:16 Pulse Oximetry 97 12/03/19 17:16 Oxygen Delivery Method Room Air 12/03/19 17:16 Oxygen Flow Rate 0 12/03/19 17:16 Pain Level 2 12/03/19 17:33 Comment 12/03/19 17:16
--- NOTE | 2019-12-03 18:24 | DI.RAD_ITS ---
EXAM: XR KNEE LT 4V AP,LAT,RYAN,PAT CLINICAL HISTORY: FALL, PREPATELLAR SWELLING. TECHNIQUE: 2D digital imaging was performed. COMPARISON: CR RIGHT KNEE 3 VIEWS from 10/07/2017 CR XR knee RT 2V AP,lat from 04/02/2018 FINDINGS: BONES: No acute fracture is present. No bony destructive lesion is seen. JOINTS: There is narrowing of the medial femoral tibial joint space and mild periarticular spurring t hroughout.. No joint effusion is seen. SOFT TISSUE: There is soft tissue swelling anterior to the tibial tuberosity. There are multiple bon y fragments in this location which do not appear acute. There is also calcification anterior to the patella and near the quadriceps insertion on the patella. IMPRESSION: Anterior soft tissue swelling. Chronic appearing calcifications anterior to the tibial tubercle. DATA REPOSITORY: RADIATION DOSE DELIVERED:
[2019-12-03] MEDS: Acetaminophen 500 MG TAB 1000 MG PO (18:33)
--- NOTE | 2019-12-03 18:38 | DI.VRAD_ITS ---
PROCEDURE INFORMATION: Exam: XR Left Knee Exam date and time: 12/03/2019 6:14 PM Age: 74 years old Clinical indication: Other: Fall, prepatellar swelling TECHNIQUE: Imaging protocol: XR Left knee. Views: 4 or more views. COMPARISON: No relevant prior studies available. FINDINGS: Bones/joints: Moderate joint effusion. No acute fracture or dislocation. There is minimal spurring at the medial lateral aspects of the patellofemoral joint. There is mild narrowing of the medial knee joint space without subchondral sclerosis or cystic change. There is a large anterior osteophyte arising from a portion of the origin of the patellar tendon. Soft tissues: There are multiple areas of ossification within the distal patellar tendon at the insertion onto the tibial tuberosity. There is a large amount of swelling anterior to these areas of ossification within the patellar tendon .There is no radiopaque foreign body.There is no gas in the soft tissue. IMPRESSION: 1. Large soft tissue swelling anterior to the tibial tuberosity and adjacent patellar tendon. There is fragmentation of spurs and ossifications of the patellar tendon at its insertion onto the tibial tuberosity. Most likely they are old and related to previous [place]-Schlatter's disease. 2. Minimal osteoarthritis of the medial knee joint and patellofemoral joint. Dictated and Authenticated by: Rod Francis MD. Ordering:JANENE Shea MD
[2019-12-03] MEDS: Cephalexin 500 MG CAP, 2 CAPS/BTL PO (18:51)
[2019-12-03 18:59] VITALS: BP 143/82; PULSE 91; RESP 16; TEMP 36.9; O2SAT 94
== END 2019-12-03 19:05 | disposition home or self-care (01) ==
PROVIDERS: Emergency Provider Emergency Medicine; PCP Family Medicine
DX: M70.42 Prepatellar bursitis, left knee (principal); S80.212A Abrasion, left knee, initial encounter; W18.39XA Other fall on same level, initial encounter; I10 Essential (primary) hypertension
CPT/HCPCS: 99283; 73564

== ENCOUNTER → 2019-12-14 13:42 | Outpatient (BNVA) | payer MEDICARE, OTHER, SELFPAY | PROVIDERS: PCP Family Medicine; Referring Provider Family Medicine; Visit Provider Student in an Organized Health Care Education/Training Program | DX: M19.072 Primary osteoarthritis, left ankle and foot (principal) | CPT/HCPCS: 20610; 99213; J1040 ==

== ENCOUNTER 2019-12-28 17:19 | Emergency (ER) | payer MEDICARE, OTHER, SELFPAY ==
[2019-12-28] VITALS (21 sets, daily range): BP systolic 130–145; BP diastolic 68–77; PULSE 84–101; RESP 13–28; TEMP 36.8–37.2; O2SAT 95–99
--- NOTE | 2019-12-28 17:30 | RT.EKG_ITS ---
APPROVED REPORT Exam: Resting ECG Patient Location: E HR:95 bpm ECG Measurements Heart Rate 95 AXIS NV 214 P 59 QRSd 96 QRS 86 QT 341 T -43 QTc 429 <Conclusion> Sinus rhythm...normal P axis, V-rate 60- 99 Borderline prolonged NV interval...NV >207, V-rate 91-120 Probable anteroseptal infarct, recent...Q, ST>0.15mV, T neg, V1-V2 T wave inversion in III and aVF, seen in previous EKG but more pronounced. No acute ST elevation or depression.
--- NOTE | 2019-12-28 17:32 | W.ED.GENAD ---
Discharge Plan Disposition Patient Disposition: HOME Discharge Details Chief Complaint: GenMedical Clinical Impression: Acute dehydration Primary Care Provider: Swetha Chaidez ED Provider: Iris Martinez Home Meds and New Rx's Prescriptions: Continued acetaminophen [Tylenol Extra Strength] 500 mg tablet 1,000 mg PO Q6H PRNRF: 0 glucosamine HCl 750 mg tablet 1,500 mg PO DAILY RF: 0 acetylcysteine 600 mg capsule 1,200 mg PO BID RF: 0 mupirocin 2 % ointment 1 applic TP TID Qty: 15 RF: 0 aspirin 81 mg tablet,delayed release (DR/EC) 81 mg PO DAILY RF: 0 latanoprost 0.005 % drops 1 drp OP QPM RF: 0 Galvez See Rx Instructions .ROUTE .COMPLEX RF: 0 nitroglycerin 0.4 MG tablet, sublingual 0.4 mg Sublingual PRN Qty: 25 RF: 2 citalopram 40 mg tablet 40 mg PO DAILY Qty: 90 RF: 4 sildenafil 100 mg tablet 50 - 100 mg PO DAILY PRN (Reason: sexual activity) Qty: 10 RF: 2 lovastatin 20 mg tablet 20 mg PO DAILY Qty: 90 RF: 4 ketoconazole 2 % cream 1 applic TP DAILY PRN (Reason: rash on arm) Qty: 60 RF: 2 pramipexole 0.125 mg tablet 0.125 mg PO HS Qty: 90 RF: 3 bupropion HCl 300 mg tablet extended release 24 hr 300 mg PO QAM Qty: 90 RF: 4 bupropion HCl 150 mg tablet extended release 24 hr 150 mg PO QAM Qty: 90 RF: 4 gabapentin 800 mg tablet 800 mg PO HS Qty: 90 RF: 4 lisinopril 10 mg tablet 10 mg PO DAILY Qty: 90 RF: 4 mirtazapine 7.5 mg tablet 1.875 mg PO QHS Qty: 30 RF: 11 cyanocobalamin (vitamin B-12) 1,000 mcg/mL solution 1,000 mcg IJ Q MONTH Qty: 3 RF: 3 ferrous gluconate 240 mg (27 mg iron) tablet 240 mg PO DAILY Qty: 90 RF: 2 levofloxacin [Levaquin] 500 mg tablet 500 mg PO DAILY Qty: 3 RF: 0 meloxicam 15 mg tablet 7.5 - 15 mg PO DAILY PRN (Reason: joint pain) Qty: 90 RF: 0 (DME) BD Luer-Sofia Syringe 3 mL 21 gauge x 1 syringe 1 ea Miscellaneous monthly Qty: 15 RF: 0 cholecalciferol (vitamin D3) 1,000 UNITS tablet 2,000 units PO DAILY RF: 0 Discharge Instructions Instructions: Dehydration (ED) Additional Instructions: Continue to push fluids drinking at least 6 to 8 glasses of water daily or more you can use half-strength Gatorade. Call your primary care provider first thing tomorrow morning to schedule a follow-up visit Return sooner for new or worsening problems Referrals: Swetha Chaidez MD [Primary Care Provider] - (Call in the a.m. for a follow-up appointment within the next week to have your kidney functions recheck) Discharge Orders Other Ambulatory Orders: Basic Metabolic Panel (Routine) Timeframe: 3 Days Location: None Selected Ordered By: Iris Martinez Medical Decision Making This is a 74-year-old male who comes in after working in the heat for most of the day. Symptoms most consistent with mild dehydration. Will establish IV give IV fluid bolus of normal saline 1 L and draw routine lab work. He has had no chest pain or shortness of breath and no recent illness. He is able to take oral intake without difficulty. He has had no nausea or vomiting and is tolerating good p.o. after a liter of fluid his symptoms have completely resolved. He is hemodynamically stable with a heart rate now in the 90s down from low 100s. Labs reviewed and show evidence of dehydration with a creatinine of 1.59 BUN of 27 and a gravity of greater than 1.030. The rest of his labs and exam are unremarkable. He is given another half liter of lactated Ringer's and is stable for discharge to home. He was advised to repeat his blood work in 2 to 3 days and to follow-up with his primary care provider. He was advised to continue to push PO fluids. Medical Records Medical records reviewed: Yes I reviewed the patient's medical records. Lab Data Lab results reviewed: Yes I reviewed the patient's lab results. Labs: Laboratory Tests Range/Units 12/28/19 12/28/19 12/28/19 17:45 17:45 18:25 WBC (4.4-10.8) k/cumm 10.13 RBC (4.50-6.00) m/cumm 4.38 L Hgb (13.5-17.5) g/dL 13.4 L Hct (40.0-50.0) % 40.4 MCV (80-95) fL 92.2 MCH (27.0-33.0) pg 30.6 MCHC (32.0-36.0) g/dL 33.2 RDW (11.8-14.1) % 13.3 Plt Count (130-400) x1000/uL 228 MPV (8.0-11.0) fL 9.6 Immature Gran % % 0.6 Neutrophils % 78.2 Lymphocytes % 9.6 Monocytes % 9.4 Eosinophils % 2.1 Basophils % 0.1 Absolute Neutrophils (1.2-6.7) k/cumm 7.93 H Absolute Lymphocytes (1.2-3.4) k/cumm 0.97 L Absolute Monocytes (0.11-0.7) k/cumm 0.95 H Absolute Eosinophils (0.0-0.7) k/cumm 0.21 Absolute Basophils (0.0-0.2) k/cumm 0.01 Sodium (136-145) mmol/L 138 Potassium (3.5-5.1) mmol/L 4.7 Chloride (98-107) mmol/L 104 Carbon Dioxide (21.0-32.0) mmol/L 23.6 Anion Gap (3-11) mmol/L 10.4 BUN (7-18) mg/dL 27 H Creatinine (0.70-1.30) mg/dL 1.59 H Estimated GFR/1.73 m2 (mL/min/1.73m2) 42.66 Glucose (74-106) mg/dL 98 Calcium (8.5-10.1) mg/dL 9.0 Magnesium (1.8-2.4) mg/dL 2.2 Total Bilirubin (0.2-1.0) mg/dL 0.3 AST (15-37) U/L 19 ALT (16-63) U/L 26 Alkaline Phosphatase (46-116) U/L 59 Troponin I (<0.06) ng/mL < 0.05 Total Protein (6.4-8.2) g/dL 7.3 Albumin (3.4-5.0) g/dL 4.1 Urine Color (Yellow) Yellow Urine Clarity (Clear) Clear Urine pH (5-8) 5.0 Ur Specific [place] (1.005-1.025) >= 1.030 H Urine Protein (Negative) mg/dL Negative Urine Ketones (Negative) mg/dL Negative Urine Blood (Negative) Negative Urine Nitrite (Negative) Negative Urine Bilirubin (Negative) Negative Urine Urobilinogen (Up TO 0.2) EU/dL 0.2 Ur Leukocyte Esterase (Negative) Negative Urine Glucose (Negative) mg/dL Negative ECG Data Interpretation: EKG reviewed by Dr. Camarena please see her interpretation HPI General Date/Time Provider Initiated Documentation: 12/28/19 17:30. Limitations to Documentation: no limitations. Information obtained by: patient. HPI Narrative: This is a 61-year-old male patient with a past medical history significant for hypertension anxiety arthritis who presents to the emergency department for lightheadedness after having worked outside in the heat most of the day. 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 He states that he did try to stay well-hydrated but he knows that he may have overdone it. He got home and laid in his bed in the air conditioned room and states that he was nursing some water . He states he really has not eaten since getting home and that when he went to go get up that he did feel lightheaded and the room was spinning. He did not fall he has no previous history of vertigo. He denies any chest pain shortness of breath abdominal pain nausea vomiting or diarrhea. Related Data Home Medications Medication Instructions Recorded Confirmed cholecalciferol (vitamin D3) 2,000 units PO DAILY 06/20/16 12/28/19 nitroglycerin 0.4 mg SUBLINGUAL PRN #25 tab 11/22/16 12/28/19 glucosamine HCl 750 mg tablet 1,500 mg PO DAILY tab 07/11/18 12/28/19 mupirocin 2 % topical ointment 1 applic TP TID #15 gm 09/11/18 12/28/19 citalopram 40 mg tablet 40 mg PO DAILY #90 tab 10/27/18 12/28/19 acetaminophen 500 mg tablet 1,000 mg PO Q6H PRN tab 10/31/18 12/28/19 sildenafil 100 mg tablet 50 - 100 mg PO DAILY PRN #10 tab 12/11/18 12/28/19 ketoconazole 2 % topical cream 1 applic TP DAILY PRN #60 gm 04/15/19 12/28/19 lovastatin 20 mg tablet 20 mg PO DAILY #90 tab-cap 04/15/19 12/28/19 pramipexole 0.125 mg tablet 0.125 mg PO HS #90 tab-cap 04/24/19 12/28/19 bupropion HCl 150 mg 24 hr tablet, 150 mg PO QAM #90 tab 06/04/19 12/28/19 extended release bupropion HCl 300 mg 24 hr tablet, 300 mg PO QAM #90 tab 06/04/19 12/28/19 extended release gabapentin 800 mg tablet 800 mg PO HS #90 tab-cap 07/23/19 12/28/19 lisinopril 10 mg tablet 10 mg PO DAILY #90 tab-cap 07/23/19 12/28/19 mirtazapine 7.5 mg tablet 1.875 mg PO QHS #30 tab 08/06/19 12/28/19 cyanocobalamin (vitamin B-12) 1,000 mcg IJ Q MONTH #3 vial 09/17/19 12/28/19 1,000 mcg/mL injection solution ferrous gluconate 240 mg (27 mg 240 mg PO DAILY #90 tab 10/15/19 12/28/19 iron) tablet Galvez See Rx Instructions .ROUTE .COMPLEX 10/26/19 12/28/19 aspirin 81 mg tablet,delayed 81 mg PO DAILY 10/26/19 12/28/19 release latanoprost 0.005 % eye drops 1 drp OP QPM 10/26/19 12/28/19 acetylcysteine 600 mg capsule 1,200 mg PO BID cap 11/25/19 12/28/19 levofloxacin 500 mg tablet 500 mg PO DAILY #3 tab 12/03/19 12/28/19 meloxicam 15 mg tablet 7.5 - 15 mg PO DAILY PRN #90 12/26/19 12/28/19 tab-cap syringe with needle 3 mL 21 gauge #15 ndl 12/26/19 12/28/19 x 1 Previous Rx's Medication Instructions Recorded mupirocin 2 % topical ointment 1 applic TP TID #15 gm 09/11/18 citalopram 40 mg tablet 40 mg PO DAILY #90 tab 10/27/18 sildenafil 100 mg tablet 50 - 100 mg PO DAILY PRN #10 tab 12/11/18 ketoconazole 2 % topical cream 1 applic TP DAILY PRN #60 gm 04/15/19 lovastatin 20 mg tablet 20 mg PO DAILY #90 tab-cap 04/15/19 pramipexole 0.125 mg tablet 0.125 mg PO HS #90 tab-cap 04/24/19 bupropion HCl 150 mg 24 hr tablet, 150 mg PO QAM #90 tab 06/04/19 extended release bupropion HCl 300 mg 24 hr tablet, 300 mg PO QAM #90 tab 06/04/19 extended release gabapentin 800 mg tablet 800 mg PO HS #90 tab-cap 07/23/19 lisinopril 10 mg tablet 10 mg PO DAILY #90 tab-cap 07/23/19 mirtazapine 7.5 mg tablet 1.875 mg PO QHS #30 tab 08/06/19 cyanocobalamin (vitamin B-12) 1,000 mcg IJ Q MONTH #3 vial 09/17/19 1,000 mcg/mL injection solution ferrous gluconate 240 mg (27 mg 240 mg PO DAILY #90 tab 10/15/19 iron) tablet levofloxacin 500 mg tablet 500 mg PO DAILY #3 tab 12/03/19 meloxicam 15 mg tablet 7.5 - 15 mg PO DAILY PRN #90 12/26/19 tab-cap syringe with needle 3 mL 21 gauge #15 ndl 12/26/19 x 1 Allergies Allergy/AdvReac Type Severity Reaction Status Date / Time terbinafine Allergy Intermediate Verified 12/28/19 17:28 diclofenac AdvReac Intermediate Diarrhea, Verified 12/28/19 17:28 UPSET STOMACH General Stated Complaint: GenMedical PAWEL: 3 Review of Systems Constitutional Constitutional: Reports fatigue, Denies fever(s), Reports lethargy, Reports malaise and Denies poor appetite Eyes Eyes: Denies blurry vision ENT Ears, Nose, Mouth, and Throat: Reports vertigo and Reports dizziness Cardiovascular Cardiovascular: Denies chest pain, Denies syncope, Denies leg edema, Reports lightheadedness, Denies palpitations and Denies dyspnea Respiratory Respiratory: Denies dyspnea Gastrointestinal Gastrointestinal: Denies diarrhea, Denies nausea and Denies vomiting Genitourinary Genitourinary: Denies difficulty urinating Musculoskeletal Musculoskeletal: Denies back pain and Denies myalgias Integumentary/Breasts Skin/Breast: Denies lesions and Denies rash Neurologic Neurologic: Denies confusion, Reports vertigo, Reports dizziness and Denies syncope Psychiatric Psychiatric: Denies confusion Endocrine Endocrine: Reports fatigue and Denies palpitations Hematologic/Lymphatic Hematologic/Lymphatic: Denies easy bleeding and Denies easy bruising [facility] Medical History (Updated 12/28/19 @ 19:30 by Iris Martinez NP) Atherosclerosis of [place] coronary artery (Acute) mi 1992 : negative nuclear stress test : echocardiogram:mild aortic stenosis/EF normal Diarrhea (Acute) Elevated PSA, between 10 and less than 20 ng/ml (Acute) Essential hypertension (Acute) Gastroesophageal reflux disease (Acute) Hyperlipidemia (Acute) Obstructive sleep apnea syndrome (Acute) CPAP POLST (Physician Orders for Life-Sustaining Treatment) (Acute) Surgical History Colonoscopy - MAC (06/25/16) History of aortic valve replacement (Acute ~2016) Hx of CABG (Chronic ~2016) [place] CAB[place] [facility] [place] Valve replacement Stent placement Family History (Updated 10/27/19 @ 09:18 by Zaki Robins) Mother , age 59 Essential hypertension Heart disease Ovarian cancer Father , age 89 Diabetes Essential hypertension Heart disease Hyperlipidemia Stroke Prostate cancer Brother Essential hypertension Heart disease Hyperlipidemia Prostate cancer Maternal Grandfather No problems noted. Paternal Grandfather No problems noted. Maternal Grandmother No problems noted. Paternal Grandmother Essential hypertension Heart disease Son No problems noted. Son No problems noted. Social History (Updated 10/27/19 @ 09:17 by Zaki Robins) Smoking/Tobacco Use Status: Former Tobacco Use Alcohol Intake: current Alcohol Intake frequency: a few times a month Alcohol type: beer Drug use: Never Substance use type: does not use Counseling given: No Counseling provided: none Household members: spouse Pets and animals: Yes Pets and animals: cat(s) Do you think of yourself as: straight/heterosexual Current gender identity: male What is your relationship status?: How often do you talk on the phone with friends or family?: decline to answer How often do you get together with friends or relatives?: decline to answer How often do you attend buddhism or christian services?: 1-3 times per year Do you belong to any clubs or organized social groups?: yes Panel score (0-1 are the most socially isolated patients): 2 What type of physical activity do you participate in: yoga Duration: 15-30 minutes/day Frequency: 1-2 times per week Leslie/Catholic: Catholic Special leslie needs: No Seatbelt use: sometimes Helmet use: Yes Helmet use: always Drive intox or ride w/intox truss driver helper: No Do you feel safe at home: Yes Do you feel safe in your relationship?: Yes Exam Const General: cooperative, healthy appearing and comfortable Nutritional Appearance: overweight Orientation: alert, awake and oriented x3 HENMT Head: normal to inspection, normocephalic and atraumatic Mouth: oral mucosae normal Resp Effort & Inspection: normal respiratory effort Auscultation: clear to auscultation bilaterally Cardio Rate: regular rate Rhythm: regular rhythm GI Inspection: normal to inspection Palpation: soft Auscultation: normal bowel sounds Skin General skin exam: no rashes or lesions noted Neuro General: patient alert, patient awake and patient oriented x3 Extrem General: normal to inspection and full ROM Course Vital Signs Vital signs: Vital Signs Temperature 36.8 C 12/28/19 17:22 Pulse 101 H 12/28/19 17:22 Respiratory Rate 18 12/28/19 17:22 Blood Pressure 130/76 12/28/19 17:22 Pulse Oximetry 99 12/28/19 17:22 Temperature 36.8 C 12/28/19 17:22 Temperature Source Temporal Artery Scan 12/28/19 17:22 Pulse 101 H 12/28/19 17:22 Respiratory Rate 18 12/28/19 17:22 Blood Pressure 130/76 12/28/19 17:22 Blood Pressure Position Supine 12/28/19 17:22 Pulse Oximetry 99 12/28/19 17:22 Oxygen Delivery Method Room Air 12/28/19 17:22 Oxygen Flow Rate 0 12/28/19 17:22 Pain Level 3 12/28/19 17:22
[2019-12-28] MEDS: Normal Saline 1,000 ML 1000 ML IV (17:48)
[2019-12-28 17:52] LABS: Abs Immature Grans 0.06 k/cumm (0.0-0.09); Absolute Basophil Count 0.01 k/cumm (0.0-0.2); Absolute Eosinophil Count 0.21 k/cumm (0.0-0.7); Absolute Lymphocyte Count 0.97 k/cumm (1.2-3.4); Absolute Monocyte Count 0.95 k/cumm (0.11-0.7); Absolute Neutrophil Count 7.93 k/cumm (1.2-6.7); Basophils % 0.1; Eosinophils % 2.1; HCT 40.4 % (40.0-50.0); HGB 13.4 g/dL (13.5-17.5); Immature Grans % 0.6 %; Lymphocytes % 9.6; Mean Corp. HGB Concentration 33.2 g/dL (32.0-36.0); Mean Corpuscular Hemoglobin 30.6 pg (27.0-33.0); Mean Corpuscular Volume 92.2 fL (80-95); Mean Platelet Volume 9.6 fL (8.0-11.0); Monocytes % 9.4; Neutrophils % 78.2; Platelet Count 228 x1000/uL (130-400); RBC 4.38 m/cumm (4.50-6.00); RBC Distribution Width 13.3 % (11.8-14.1); White Blood Cell Count 10.13 k/cumm (4.4-10.8)
[2019-12-28 18:08] LABS: ALT 26 U/L (16-63); AST 19 U/L (15-37); Albumin 4.1 g/dL (3.4-5.0); Alkaline Phosphatase 59 U/L (46-116); Anion Gap 10.4 mmol/L (3-11); BUN 27 mg/dL (7-18); Bilirubin, Total 0.3 mg/dL (0.2-1.0); CO2 23.6 mmol/L (21.0-32.0); CREATININE 1.59 mg/dL (0.70-1.30); Chloride 104 mmol/L (98-107); Estimated GFR 42.66 (mL/min/1.73m2); Glucose 98 mg/dL (74-106); Magnesium 2.2 mg/dL (1.8-2.4); Potassium 4.7 mmol/L (3.5-5.1); Sodium 138 mmol/L (136-145); Total Protein 7.3 g/dL (6.4-8.2); Troponin I < 0.05 ng/mL (<0.06)
[2019-12-28 18:35] LABS: Bilirubin Negative (Negative); Blood Negative (Negative); Clarity Clear (Clear); Glucose Negative (Negative); Ketones Negative (Negative); Leukocyte Esterase Negative (Negative); Nitrite Negative (Negative); Specific Gravity >= 1.030 (1.005-1.025); Urobilinogen 0.2 EU/dL (Up TO 0.2)
[2019-12-28] MEDS: Lactated Ringers 500 ML IV (19:00)
== END 2019-12-28 19:45 | disposition home or self-care (01) ==
PROVIDERS: Emergency Provider Nurse Practitioner Acute Care; PCP Family Medicine
DX: E86.0 Dehydration (principal); I10 Essential (primary) hypertension
CPT/HCPCS: 80053; 93005; 96360; 96361; 99285; 81003; 83735; 84484; 85025; 93010; 99284

== ENCOUNTER 2019-12-31 02:50 | Outpatient (CLI) | payer MEDICARE, OTHER, SELFPAY ==
[2020-01-01 09:22] LABS: Anion Gap 9.4 mmol/L (3-11); BUN 25 mg/dL (7-18); CO2 21.6 mmol/L (21.0-32.0); CREATININE 1.61 mg/dL (0.70-1.30); Calcium 9.1 mg/dL (8.5-10.1); Chloride 104 mmol/L (98-107); Estimated GFR 42.05 (mL/min/1.73m2); Glucose 120 mg/dL (74-106); Potassium 4.3 mmol/L (3.5-5.1); Sodium 135 mmol/L (136-145)
[2020-01-01 10:46] LABS: PSA, Screening 12.6 ng/mL (0.0-6.5)
== END 2019-12-31 03:10 ==
PROVIDERS: PCP Family Medicine; Visit Provider Nurse Practitioner Gerontology
DX: N40.0 Benign prostatic hyperplasia without lower urinary tract symptoms (principal); Z80.42 Family history of malignant neoplasm of prostate; N17.9 Acute kidney failure, unspecified; Z12.5 Encounter for screening for malignant neoplasm of prostate
CPT/HCPCS: 36415; 80048; 84153

== ENCOUNTER 2020-01-08 04:02 | Outpatient (CLI) | payer MEDICARE, OTHER, SELFPAY ==
--- NOTE | 2020-01-08 07:00 | DI.US_ITS ---
EXAM: rising psa; different densities of prostate tissue,n40.2,r97.20 COMPARISON: No exams were available for comparison TECHNIQUE: Ultrasound performed using standard protocol. FINDINGS: Sonography was provided for Dr. Escalona during the performance of a transrectal ultrasound-guided pros goddard biopsy. Please refer to the procedure report for complete details. DATA REPOSITORY:
--- NOTE | 2020-01-08 10:40 | PROST_PTH ---
PATIENT: Jefferson Shepherd LOC: [facility] U#:[id number] AGE/SX: 74/M ROOM: RE01/08/[address]: Angela Kapadia DNP : 1945 BED: DIS: 01/08/2020 SPEC #: [id number] RECD: 01/08/20 12:22 STATUS: ALFREDO RE #: [id number] RADHA: 01/08/20 10:[address]: Angela Kapadia DEPT: Surgical Specimen RECD BY: Abigail Owen ENTERED: 01/08/20 12:24 SP TYPE: PROST OTHR DR: Swetha Chaidez MD Tissues: 1 - PROSTATE NEEDLE BIOPSY 2 - PROSTATE NEEDLE BIOPSY 3 - PROSTATE NEEDLE BIOPSY 4 - PROSTATE NEEDLE BIOPSY 5 - PROSTATE NEEDLE BIOPSY 6 - PROSTATE NEEDLE BIOPSY 7 - PROSTATE NEEDLE BIOPSY 8 - PROSTATE NEEDLE BIOPSY 9 - PROSTATE NEEDLE BIOPSY 10 - PROSTATE NEEDLE BIOPSY 11 - PROSTATE NEEDLE BIOPSY 12 - PROSTATE NEEDLE BIOPSY Procedures: GROSS AND MICRO LEVEL 4 Comments: [id number]
--- NOTE | 2020-01-08 10:48 | W.PM.OP ---
Date of service: 01/08/20 Time of Service: 10:49 Operative Note Operative Note DATE OF PROCEDURE: 01/08/20 PRE-OP DIAGNOSIS: Elevated PSA PROCEDURE: Transrectal ultrasound-guided biopsy of the prostate SURGEON: Johnny Escalona ANESTHESIA: local ESTIMATED BLOOD LOSS: 25 PATHOLOGY: other (12 laterally directed prostate biopsies) COMPLICATIONS: None Patient was transported to: no change Patient's condition: stable Indications: This is a 74-year-old gentleman who has a family history of prostate cancer. He has been identified as having an elevated PSA of 12.6 ng/mL. On digital rectal exam, there is asymmetry of the prostate but no nodularity. He presents for prostate biopsies Findings: Prostate asymmetry with the right transition zone being larger than the left. Prostate volume approximately 48 cc Procedure Description: The patient was given mechanical and antibiotic bowel prep. He was brought to the radiology suite on 01/08/2020. He was placed in the left lateral position. Transrectal imaging of the prostate was performed using a variable megahertz transducer. The prostate volume was calculated at 48 cc. The prostate was imaged in transverse and longitudinal planes. The peripheral zone appeared normal with no hypoechoic areas. The transition zone showed enlargement and asymmetry with the right side being quite a bit larger than the left. A periprosthetic nerve block was then performed using 1% lidocaine without epinephrine. A total of 12 laterally directed biopsies were taken and sent to pathology for permanent section. Each biopsy was labeled individually. The patient tolerated the procedure well with no complications.
== END 2020-01-08 04:22 ==
PROVIDERS: PCP Family Medicine; Visit Provider Nurse Practitioner Gerontology
DX: N40.2 Nodular prostate without lower urinary tract symptoms (principal); R97.20 Elevated prostate specific antigen [PSA]; I10 Essential (primary) hypertension; C61 Malignant neoplasm of prostate
CPT/HCPCS: 55700; 76872; 76942; 88305

== ENCOUNTER → 2020-01-21 13:06 | Outpatient (BNVA) | payer MEDICARE, OTHER, SELFPAY | PROVIDERS: PCP Family Medicine; Referring Provider Family Medicine; Visit Provider Urology | DX: C61 Malignant neoplasm of prostate (principal); I10 Essential (primary) hypertension | CPT/HCPCS: 99214 ==

== ENCOUNTER 2020-01-27 02:06 | Outpatient (CLI) | payer MEDICARE, OTHER, SELFPAY ==
--- NOTE | 2020-01-27 06:15 | DI.CT_ITS ---
EXAM: CT ABDOMEN PELVIS W CLINICAL HISTORY: r/o mets, prostate ca, c61 TECHNIQUE: Imaging Protocol: Axial computed tomography images with coronal and sagittal reformatted images were created and reviewed CONTRAST MATERIAL: Intravenous: Omnipaque 350 Contrast volume:100 mL Oral: Yes COMPARISON: No exams were available for comparison FINDINGS: ABDOMEN: Lung Bases: Dependent atelectasis. Scarring in the left lingula. Liver: Normal density. No measurable mass. Portal, Superior Mesenteric, and Splenic Veins: Unremarkable. Gallbladder and Biliary Tract: No radiodense calculus or dilation. Pancreas: Normal density, no abnormal calcifications or inflammatory process. Spleen: Normal. Adrenals: 2.9 x 1.5 cm right adrenal nodule. 1.5 x 1.1 cm left adrenal nodule. Kidneys: Normal size, contour and axis. No radiodense stones or obstructive uropathy. There is a 9.1 AP by 9.1 craniocaudad by 7.8 transverse cm heterogeneous mass in the superior pole of the right kidn ey. Abdominal Aorta: Abdominal portion non-dilated. Mild atherosclerosis. Bowel: No obstruction or bowel wall thickening. No evidence of appendicitis. Small hiatal hernia. C olonic diverticulosis but no evidence of acute diverticulitis. Peritoneal Cavity: No ascites, collection or mesenteric inflammatory response. Lymph Nodes: Within normal limits. Bones: Degenerative changes in the spine. Soft Tissues: Small fat containing umbilical hernia. Moderate size right inguinal hernia containing a portion of the urinary bladder. PELVIS: Bladder: Symmetric distention, no gross wall thickening. Herniation of a portion of the urinary bladd er into the patient's right inguinal hernia. Reproductive Organs: Enlarged prostate gland. Lymph Nodes: Within normal limits. Bones: Degenerative changes. IMPRESSION: 1. 9.1 cm heterogeneous mass arising from the superior pole of the right kidney most suggestive of a primary renal carcinoma such as RCC. 2. Bilateral adrenal nodules. Metastatic disease cannot be excluded. 3. Right inguinal hernia containing a herniated portion of the urinary bladder. 4. Enlarged prostate gland. 5. Colonic diverticulosis but no evidence of acute diverticulitis. RADIATION DOSE DELIVERED: 1,443.76mGy.cm Total DLP DATA REPOSITORY: All CT scans at this facility are submitted to the National Radiology Data Registry (NRDR) Dose Index Registry (DIR) with the [employer] (A[employer]). RADIATION OPTIMIZATION: All CT scans at this facility use at least one of these dose optimization te chniques: automated exposure control; mA and/or kV adjustment per patient size (includes targeted exa ms where dose is matched to clinical indication); or iterative reconstruction.
--- NOTE | 2020-01-27 06:15 | DI.NM_ITS ---
EXAM: NM BONE SCAN WHOLE BODY GRP CLINICAL HISTORY: r/o mets, PROSTATE CA,C61. TECHNIQUE: Injected Dose: 25 mCi Tc-99m MDP Delayed Images: 2-3 hours. COMPARISON: CR XR ANKLE LT COMPLETE from 12/02/2018 FINDINGS: Symmetric axial uptake. Bilateral renal excretion is identified. The patient has a right total hip ar throplasty. Foci of increased radiotracer uptake are seen on the right at these sternoclavicular sloan ction and the left 5th rib anteriorly. Mildly symmetric uptake is seen in the shoulders and the wris ts bilaterally and the left knee. This is likely degenerative. There is increased radiotracer uptak e in the left ankle. There are severe degenerative changes seen in the left ankle. This may account for the increased uptake. On the whole-body images there is a rounded area of radiotracer inferior to the right of the urinary bladder. This area is not visualized on the coned-down views of the pelv is. IMPRESSION: 1. Increased radiotracer uptake seen at the right sternoclavicular region and the left 5th rib anteri rosa. This is nonspecific. Findings may reflect degenerative changes, trauma or metastatic disease. Plain film correlation should be considered. 2. Findings likely reflecting degenerative changes in the shoulders, wrists and left ankle. Right to marjorie hip arthroplasty. DATA REPOSITORY:
[2020-01-27] MEDS: Omnipaque 350 MG/ML 50 ML BTL IJ (08:58)
[2020-01-27] MEDS: Omnipaque 350 MG/ML 100 ML BTL IJ (09:51)
[2020-01-27] MEDS: Normal Saline - Diluent 50 ML VIAL IV (09:52)
== END 2020-01-27 02:26 ==
PROVIDERS: PCP Family Medicine; Visit Provider Urology
DX: C61 Malignant neoplasm of prostate (principal); E27.9 Disorder of adrenal gland, unspecified; N28.89 Other specified disorders of kidney and ureter; K40.90 Unilateral inguinal hernia, without obstruction or gangrene, not specified as recurrent; N40.0 Benign prostatic hyperplasia without lower urinary tract symptoms; K57.30 Diverticulosis of large intestine without perforation or abscess without bleeding
CPT/HCPCS: 78306; 74177; J3490; Q9967

== ENCOUNTER → 2020-01-28 15:27 | Outpatient (BNVA) | payer MEDICARE, OTHER, SELFPAY | PROVIDERS: PCP Family Medicine; Referring Provider Family Medicine; Visit Provider Urology | DX: C61 Malignant neoplasm of prostate (principal); N28.89 Other specified disorders of kidney and ureter | CPT/HCPCS: 99214 ==

== ENCOUNTER 2020-02-15 04:52 | Outpatient (CLI) | payer MEDICARE, OTHER, SELFPAY ==
[2020-02-15 08:22] LABS: CREATININE 1.19 mg/dL (0.70-1.30)
[2020-02-17 15:06] LABS: Metanephrine, Free <0.20 nmol/L (<0.50)
[2020-02-20 11:08] LABS: Renin Activity, Plasma 2.8 ng/mL/h
== END 2020-02-15 05:12 ==
PROVIDERS: PCP Family Medicine; Visit Provider Urology
DX: C64.9 Malignant neoplasm of unspecified kidney, except renal pelvis (principal)
CPT/HCPCS: 36415; 82533; 82088; 82565; 83835; 84244

== ENCOUNTER 2020-02-16 00:55 | Outpatient (CLI) | payer MEDICARE, OTHER, SELFPAY ==
--- NOTE | 2020-02-16 | DI.CT_ITS ---
EXAM: CT CHEST W CLINICAL HISTORY: RENAL CELL CA, C64.9 TECHNIQUE: Imaging Protocol: Axial computed tomography images with coronal and sagittal reformatted images were created and reviewed CONTRAST MATERIAL: Intravenous: Omnipaque 350 Contrast volume:70 mL. COMPARISON: No exams were available for comparison FINDINGS: Tracheobronchial tree: Patent where visualized. Mediastinum and Mattie: No dominant adenopathy or fluid collection. Pulmonary parenchyma: Dependent atelectasis. Scarring or atelectasis in the lingula. No pulmonary n odules. No architectural distortion. Pleura: No effusion or pneumothorax. Heart: The heart is not dilated. Moderate coronary artery calcification. No significant pericardial effusion. Aortic valve replacement. Aorta: Thoracic aorta non-dilated. Atherosclerosis. Upper abdomen: Right renal mass in the superior pole consistent with the patient's known renal carci noma. Bilateral adrenal nodules. Lymph nodes: Within normal limits. Bones: Degenerative changes in the spine. Old healed left rib fracture. Sternotomy. Soft tissues: Unremarkable. IMPRESSION: No evidence of thoracic metastatic disease. Right renal mass consistent with the patient's known renal carcinoma. Bilateral adrenal nodules. RADIATION DOSE DELIVERED: 562.02mGy.cm Total DLP DATA REPOSITORY: All CT scans at this facility are submitted to the National Radiology Data Registry (NRDR) Dose Index Registry (DIR) with the [employer] (ACR). RADIATION OPTIMIZATION: All CT scans at this facility use at least one of these dose optimization te chniques: automated exposure control; mA and/or kV adjustment per patient size (includes targeted exa ms where dose is matched to clinical indication); or iterative reconstruction.
[2020-02-16] MEDS: Normal Saline - Diluent 50 ML VIAL IV (13:28)
[2020-02-16] MEDS: Omnipaque 350 MG/ML 100 ML BTL IJ (13:28)
== END 2020-02-16 01:15 ==
PROVIDERS: PCP Family Medicine; Visit Provider Urology
DX: C64.1 Malignant neoplasm of right kidney, except renal pelvis (principal)
CPT/HCPCS: 71260; 82565; J3490

== ENCOUNTER 2020-08-24 03:53 | Outpatient (CLI) | payer MEDICARE, OTHER, SELFPAY ==
[2020-08-25 17:27] LABS: PSA, Ultrasensitive 8.1 ng/mL (<= 6.5)
== END 2020-08-24 03:54 | disposition home or self-care (01) ==
LOC: LBO 03:53
PROVIDERS: PCP Family Medicine; Visit Provider Radiology Radiation Oncology
DX: C61 Malignant neoplasm of prostate (principal)
CPT/HCPCS: 36415; 84153

== ENCOUNTER → 2020-09-27 08:14 | Outpatient (BNVA) | payer MEDICARE, OTHER, SELFPAY | PROVIDERS: PCP Family Medicine; Referring Provider Family Medicine; Visit Provider Physician Assistant | DX: M19.072 Primary osteoarthritis, left ankle and foot (principal) | CPT/HCPCS: 20605; J1030 ==

== ENCOUNTER 2020-11-01 03:24 | Outpatient (CLI) | payer MEDICARE, OTHER, SELFPAY ==
[2020-11-01 09:22] LABS: ALT 21 U/L (16-63); AST 7 U/L (15-37); Alkaline Phosphatase 82 U/L (46-116); Anion Gap 9.8 mmol/L (3-11); BUN 33 mg/dL (7-18); Bilirubin, Total 0.4 mg/dL (0.2-1.0); CO2 23.2 mmol/L (21.0-32.0); CREATININE 2.1 mg/dL (0.70-1.30); Calcium 8.5 mg/dL (8.5-10.1); Calculated LDL 97 mg/dL (<100); Chloride 108 mmol/L (98-107); Cholesterol 183 mg/dL (<200); Estimated GFR 30.86 (mL/min/1.73m2); Glucose 87 mg/dL (74-106); HDL Cholesterol 34 mg/dL (40-60); Potassium 5.8 mmol/L (3.5-5.1); Sodium 141 mmol/L (136-145); Total Protein 6.9 g/dL (6.4-8.2); Triglyceride 261 mg/dL (<150); Vitamin B12 721 pg/mL (193-986)
== END 2020-11-01 03:25 | disposition home or self-care (01) ==
LOC: LBO 03:24
PROVIDERS: PCP Family Medicine; Visit Provider Family Medicine
DX: I25.810 Atherosclerosis of coronary artery bypass graft(s) without angina pectoris (principal); E53.8 Deficiency of other specified B group vitamins; I10 Essential (primary) hypertension
CPT/HCPCS: 36415; 80053; 80061; 82607

== ENCOUNTER 2020-11-04 12:55 | Outpatient (CLI) | payer MEDICARE, OTHER, SELFPAY ==
--- NOTE | 2020-11-04 14:15 | DI.US_ITS ---
Exam(s) US LOWER EXTREMITY VENOUS RT EXAM: US LOWER EXTREMITY VENOUS RT CLINICAL HISTORY: RLE swelling M79.89 OTHER SPECIFIED SOFT TISSUE DISORDERS. TECHNIQUE: Ultrasound performed using standard protocol. COMPARISON: US US PROSTATE BIOPSY from 01/08/2020 FINDINGS: Duplex venous ultrasound was performed according to the usual protocol. The deep veins are freely com pressible throughout and there is normal flow augmentation with manual calf compression. 2D and Doppl er evaluation are unremarkable. IMPRESSION: No evidence of deep venous thrombosis of the right lower extremity. DATA REPOSITORY:
== END 2020-11-04 13:15 ==
PROVIDERS: PCP Family Medicine; Visit Provider Nurse Practitioner Family
DX: R22.41 Localized swelling, mass and lump, right lower limb (principal); M79.89 Other specified soft tissue disorders
CPT/HCPCS: 93971

== ENCOUNTER 2020-11-04 19:42 | Outpatient (REF) | payer MEDICARE, OTHER, SELFPAY ==
[2020-11-04 18:26] LABS: Bilirubin Negative (Negative); Blood Negative (Negative); Clarity Clear (Clear); Glucose Negative (Negative); Ketones Negative (Negative); Leukocyte Esterase Negative (Negative); Nitrite Negative (Negative); Specific Gravity 1.025 (1.005-1.025); Urobilinogen 0.2 EU/dL (Up TO 0.2); pH 5.5 (5-8)
== END 2020-11-04 19:43 | disposition home or self-care (01) ==
LOC: LBN 19:42
PROVIDERS: PCP Family Medicine; Visit Provider Nurse Practitioner Family
DX: R30.0 Dysuria (principal)
CPT/HCPCS: 81003

== ENCOUNTER 2020-11-07 02:19 | Outpatient (CLI) | payer MEDICARE, OTHER, SELFPAY ==
[2020-11-07 13:31] LABS: ESR 1 mm/hr (0-20)
[2020-11-07 13:32] LABS: Abs Immature Grans 0.08 10^3/uL (0.0-0.06); Absolute Basophil Count 0.02 10^3/uL (0.0-0.2); Absolute Eosinophil Count 0.26 10^3/uL (0.0-0.7); Absolute Lymphocyte Count 0.56 10^3/uL (1.2-3.4); Absolute Monocyte Count 0.35 10^3/uL (0.1-0.8); Absolute Neutrophil Count 4.15 10^3/uL (1.2-6.7); Basophils % 0.4; Eosinophils % 4.8; HCT 36.1 % (40.0-50.0); Immature Grans % 1.5; Lymphocytes % 10.3; MCH 31.6 pg (27.0-33.0); MCHC 33.2 % (32.0-36.0); MPV 9.7 fL (8.0-11.0); Monocytes % 6.5; Neutrophils % 76.5; Nucleated RBC 0 %; Platelet Count 144 10^3/uL (130-400); RDW 12.4 % (11.8-14.1); RDW-SD 43.5 fL; WBC 5.42 10^3/uL (4.4-10.8)
[2020-11-07 14:33] LABS: ALT 22 U/L (16-63); AST 12 U/L (15-37); Alkaline Phosphatase 82 U/L (46-116); Anion Gap 9.5 mmol/L (3-11); BUN 28 mg/dL (7-18); Bilirubin, Total 0.3 mg/dL (0.2-1.0); C-Reactive Protein 0.05 mg/dL (0.0-0.3); CO2 21.5 mmol/L (21.0-32.0); CREATININE 1.9 mg/dL (0.70-1.30); Calcium 8.4 mg/dL (8.5-10.1); Chloride 111 mmol/L (98-107); Estimated GFR 34.64 (mL/min/1.73m2); Glucose 124 mg/dL (74-106); Sodium 142 mmol/L (136-145); Total Protein 6.8 g/dL (6.4-8.2)
[2020-11-07 14:39] LABS: Potassium 6.2 mmol/L (3.5-5.1)
== END 2020-11-07 02:20 | disposition home or self-care (01) ==
LOC: LBO 02:20
PROVIDERS: Emergency Medicine; PCP Family Medicine; Visit Provider Family Medicine
DX: L08.89 Other specified local infections of the skin and subcutaneous tissue (principal); M79.89 Other specified soft tissue disorders; R79.89 Other specified abnormal findings of blood chemistry; N18.9 Chronic kidney disease, unspecified
CPT/HCPCS: 36415; 80053; 85652; 85025; 86140

== ENCOUNTER 2020-11-08 02:16 | Outpatient (CLI) | payer MEDICARE, OTHER, SELFPAY ==
--- NOTE | 2020-11-08 07:15 | DI.US_ITS ---
APPROVED REPORT EXAM: Comprehensive 2D, Doppler, and color-flow Echocardiogram Patient Location: Out-Patient Card Feeder: Rachana Gates RDCS (AE) Indications: Exertional SOB, AVR Bioprosthetic Other Information Study Quality: Adequate Conclusion Left Ventricle : The left ventricle is normal size. Left ventricular systolic function is mildly decr eased. There is normal left ventricular wall thickness. There is normal LV segmental wall motion. LVE F is 50%. Right Ventricle : Right ventricle is mildly dilated. The right ventricular systolic function is josé miguel l. The RVSP is 29.4 mmHg. Atria : The left atrium size is normal. The right atrium size is normal. Aortic Valve : Bioprosthetic aortic valve is present. No aortic regurgitation is present. No hemodyna mically significant valvular aortic stenosis. Mitral Valve : Mild mitral annular calcification. Mild mitral regurgitation. No evidence of mitral va lve stenosis. Great Vessels : The aortic root is normal in size. The ascending aorta is normal in size. IVC is norm al in size and collapses >50% with inspiration. Compared to echocardiogram from 11/12/2018, the aortic valve appears to be functioning well. The ejec tion fraction has gone from normal to mildly reduced with no significant regional wall motion abnorma lities. Wall motion Left Ventricle The left ventricle is normal size. Left ventricular systolic function is mildly decreased. There is n ormal left ventricular wall thickness. There is normal LV segmental wall motion. There is no ventricu lar septal defect visualized. LVEF is 50%. Right Ventricle Right ventricle is mildly dilated. The right ventricular systolic function is normal. The RVSP is 29. 4 mmHg. Atria The left atrium size is normal. The right atrium size is normal. The interatrial septum is intact wit h no evidence for an atrial septal defect. Aortic Valve No hemodynamically significant valvular aortic stenosis. No aortic regurgitation is present. Bioprost hetic aortic valve is present. Mitral Valve Mild mitral annular calcification. No evidence of mitral valve stenosis. Mild mitral regurgitation. Tricuspid Valve The tricuspid valve is normal in structure. There is no tricuspid valve stenosis. Mild tricuspid regu rgitation. Pulmonic Valve The pulmonary valve is normal in structure. There is no pulmonic valvular stenosis. Trace pulmonic re gurgitation. Great Vessels The aortic root is normal in size. The ascending aorta is normal in size. IVC is normal in size and c ollapses >50% with inspiration. Pericardium There is no pericardial effusion. 2D Dimensions IVSD d PLAX 1.10 cm M: 0.6-1.2 LV Vol A2C d MOD 92.0 mL LVPW d PLAX 1.12 cm M: 0.6 - 1.2 LV Vol A4C d MOD 125.7 mL LVID d PLAX 4.22 cm M: 4.2 - 5.8 LA vol/ BSA A2C s A-L 20.7 mL/m2 LVDs 3.10 cm M: 2.5 - 4.0 LA vol/ BSA A4C s A-L 22.1 mL/m2 Ao Root d 2.08 cm M: 3.1 - 3.7 LA Vol/ BSA Biplane s A-L 21.5 mL/m2 RA Area A4C 16.97 cm2 LA Area A4C s MOD 17.01 cm2 RA Vol/ BSA A4C s A-L 23.8 mL/m2 LA Area A2C s MOD 16.53 cm2 Ao Asc Diam d 3.29 cm M: 2.6 - 3.4 LV EF A4C MOD 46.8 % LV EF Teichholz 57.2 % LV EF A2C MOD 50.4 % LVEF (Nevarez's) 48.45 % M: 52 - 72 LV EF Biplane MOD 48.5 % LV Volume 82.26 mL M: 62 - 150 SV 53.34 mL LV Volume Index 40.72 mL/m2 M: 34 - 74 SV Index 26.38 mL/m2 LV Vol Biplane MOD 110.1 mL FS 29.70 % LV Diastology E/A Ratio 1.2 MV E Vmax 1.07 (0.4-1.3 m/s) MV A Vmax 0.90 (0.4-1.3 m/s) MV E/A Ratio 1.14 Aortic Valve LVOT Vmax 1.51 m/s LIBERTAD Index 0.86 cm2/m2 LVOT Mean Jose. 1.01 m/s AoV Area Vmax 1.73 cm2 LVOT Peak Grad 9.1 mmHg AoV Area/ BSA (Vmax) 0.86 cm2/m2 LVOT Mean Grad 4.8 mmHg LIBERTAD Mean Jose. 1.69 cm2 LVOT VTI 0.355 m LVOT Diam s 2.05 cm AoV Vmax 2.88 m/s Velocity Ratio 0.52 AoV Mean Jose. 1.97 m/s AoV Peak Grad 33.3 mmHg AoV Mean Grad 17.5 mmHg AoV VTI 0.584 m AoV Area VTI 2.00 cm2 AoV Area/ BSA (VTI) 0.86 cm/m2 Mitral Valve MV DT 218 (160-240 msec) MR Vmax 5.04 m/s MV PHT 63 msec MR VTI 1.318 m MV Area PHT 3.49 cm2 MR Peak Grad 101.4 mmHg MV VTI 0.456 m MR Mean Grad 74.1 mmHg MV VTI Annulus 0.453 m MR PISA Radius 0.34 cm MR EROA 0.05 cm2 MR Aliasing Velocity 0.35 m/s MR PISA 0.74 cm2 Pulmonary Valve PV Vmax 0.97 (0.5-1.5 m/s) RVOT Peak Gr. 3.38 mmHg PV Peak Grad 3.8 mmHg RVOT Mean Gr. 1.70 mmHg PV Mean Grad 2.3 mmHg RVOT VTI 0.218 m PV VTI 0.238 m RVOT Vmax 0.92 m/s Tricuspid Valve TR Peak Grad 26.3 mmHg TR Vmax 2.57 m/s RA Pressure 3.00 mmHg RVSP (TR) 29.4 mmHg
== END 2020-11-08 02:36 ==
PROVIDERS: PCP Family Medicine; Visit Provider Family Medicine
DX: R06.00 Dyspnea, unspecified (principal); Z95.3 Presence of xenogenic heart valve; I34.8 Other nonrheumatic mitral valve disorders
CPT/HCPCS: 93306

== ENCOUNTER 2020-11-08 10:07 | Outpatient (CLI) | payer MEDICARE, OTHER, SELFPAY ==
[2020-11-08 10:48] LABS: Anion Gap 7.7 mmol/L (3-11); BUN 29 mg/dL (7-18); CO2 22.3 mmol/L (21.0-32.0); Calcium 8.5 mg/dL (8.5-10.1); Chloride 110 mmol/L (98-107); Estimated GFR 32.65 (mL/min/1.73m2); Glucose 94 mg/dL (74-106); Sodium 140 mmol/L (136-145)
[2020-11-08 10:51] LABS: Potassium 6.5 mmol/L (3.5-5.1)
== END 2020-11-08 10:08 | disposition home or self-care (01) ==
LOC: LOS 10:08
PROVIDERS: PCP Family Medicine; Visit Provider Emergency Medicine
DX: I10 Essential (primary) hypertension (principal)
CPT/HCPCS: 36415; 80048

== ENCOUNTER 2020-11-08 11:28 | Inpatient (IN) | payer MEDICARE, OTHER, SELFPAY ==
[2020-11-08] VITALS (23 sets, daily range): BP systolic 117–150; BP diastolic 55–70; PULSE 57–75; RESP 12–26; TEMP 36.5–36.9; O2SAT 98–99
--- NOTE | 2020-11-08 11:15 | RT.EKG_ITS ---
APPROVED REPORT Exam: Resting ECG Reason for Exam: high potassium Patient Location: E HR:61 bpm ECG Measurements Heart Rate [address] 194 P 41 QRSd 90 QRS 81 QT 392 T -20 QTc 394 Conclusion Sinus rhythm...normal P axis, V-rate 60- 99
[2020-11-08 11:45] LABS: Abs Immature Grans 0.06 10^3/uL (0.0-0.06); Absolute Basophil Count 0.01 10^3/uL (0.0-0.2); Absolute Eosinophil Count 0.27 10^3/uL (0.0-0.7); Absolute Lymphocyte Count 0.49 10^3/uL (1.2-3.4); Absolute Monocyte Count 0.49 10^3/uL (0.1-0.8); Absolute Neutrophil Count 3.41 10^3/uL (1.2-6.7); Basophils % 0.2; Eosinophils % 5.7; HCT 36.6 % (40.0-50.0); HGB 11.8 g/dL (13.5-17.5); Immature Grans % 1.3; Lymphocytes % 10.4; MCH 30.7 pg (27.0-33.0); MCHC 32.2 % (32.0-36.0); MCV 95.3 fL (80-95); MPV 9.4 fL (8.0-11.0); Monocytes % 10.4; Nucleated RBC 0 %; Platelet Count 134 10^3/uL (130-400); RBC 3.84 10^6/uL (4.36-5.78); RDW 12.7 % (11.8-14.1); RDW-SD 43.6 fL; WBC 4.73 10^3/uL (4.4-10.8)
[2020-11-08 11:58] LABS: ALT 21 U/L (16-63); AST 8 U/L (15-37); Albumin 3.9 g/dL (3.4-5.0); Alkaline Phosphatase 82 U/L (46-116); Anion Gap 8.4 mmol/L (3-11); BUN 28 mg/dL (7-18); Bilirubin, Total 0.3 mg/dL (0.2-1.0); CO2 22.6 mmol/L (21.0-32.0); Calcium 8.7 mg/dL (8.5-10.1); Chloride 109 mmol/L (98-107); Estimated GFR 32.65 (mL/min/1.73m2); Glucose 100 mg/dL (74-106); Magnesium 2.1 mg/dL (1.8-2.4); Sodium 140 mmol/L (136-145); Total Protein 7.2 g/dL (6.4-8.2)
[2020-11-08 11:59] LABS: Potassium 6.4 mmol/L (3.5-5.1)
--- NOTE | 2020-11-08 12:07 | W.ED.GENAD ---
Discharge Plan Disposition Patient Disposition: [facility] INPATIENT Condition: Serious Discharge Details Clinical Impression: Acute hyperkalemia, Renal failure (ARF), acute on chronic Primary Care Provider: Swetha Chaidez ED Provider: Abigail Gamez Home Meds and New Rx's Prescriptions: No Action acetaminophen [Tylenol Extra Strength] 500 mg tablet 1,000 mg PO Q6H PRNRF: 0 glucosamine HCl 750 mg tablet 1,500 mg PO DAILY RF: 0 aspirin 81 mg tablet,delayed release (DR/EC) 81 mg PO DAILY RF: 0 latanoprost 0.005 % drops 1 drp OP QPM RF: 0 Trintellix 10 mg tablet 5 mg PO DAILY Qty: 30 RF: 1 nitroglycerin 0.4 MG tablet, sublingual 0.4 mg Sublingual PRN Qty: 25 RF: 2 sildenafil 100 mg tablet 50 - 100 mg PO DAILY PRN (Reason: sexual activity) Qty: 10 RF: 2 pramipexole 0.125 mg tablet 0.125 mg PO HS Qty: 90 RF: 3 mirtazapine 7.5 mg tablet 1.875 - 3.75 mg PO QHS Qty: 30 RF: 6 lovastatin 20 mg tablet 20 mg PO DAILY Qty: 90 RF: 4 ferrous gluconate 240 mg (27 mg iron) tablet 240 mg PO DAILY Qty: 90 RF: 2 bupropion HCl 300 mg tablet extended release 24 hr 300 mg PO QAM Qty: 90 RF: 4 bupropion HCl 150 mg tablet extended release 24 hr 150 mg PO QAM Qty: 90 RF: 4 Hold Instructions: Home Medication placed on hold at Doctor's office meloxicam 15 mg tablet 7.5 - 15 mg PO DAILY PRN (Reason: joint pain) Qty: 90 RF: 0 cyanocobalamin (vitamin B-12) 1,000 mcg/mL solution 1,000 mcg IJ Q MONTH Qty: 3 RF: 3 (DME) BD Luer-Sofia Syringe 3 mL 21 gauge x 1 syringe 1 ea Miscellaneous monthly Qty: 15 RF: 0 gabapentin 800 mg tablet 800 mg PO HS Qty: 90 RF: 2 lisinopril 10 mg tablet 10 mg PO DAILY Qty: 90 RF: 4 Hold Instructions: Hyperkalemia cholecalciferol (vitamin D3) 1,000 UNITS tablet 2,000 units PO DAILY RF: 0 Medical Decision Making EKG without acute findings, normal sinus rhythm on telemetry, repeat potassium 6.4 in the absence of EKG changes patient otherwise asymptomatic, no indication for emergent lowering of potassium We will give 500 cc of saline, placed on telemetry and admit to hospitalist, patient was admitted by Dr. Bernabe, hospitalist service Full CODE STATUS Patient agreeable to admission at this time Differential Diagnosis Differential Diagnosis: Adverse effect of medication, hyperkalemia, electrolyte abnormality, dysrhy Medical Records Medical records reviewed: Yes I reviewed the patient's medical records. Lab Data Lab results reviewed: Yes I reviewed the patient's lab results. ECG Data Prior ECG tracings: available for review HPI General Mode of arrival: ambulatory. Date/Time Provider Initiated Documentation: 11/08/20 11:29. Limitations to Documentation: no limitations. Information obtained by: patient. HPI Narrative: This 75-year-old male with a history of prostate and renal cancer, renal insufficiency, aortic valve replacement, bioprosthetic, CABG, GERD presents with report of hyperkalemia. He was sent in by his primary care physician for repeat hyperkalemia testing this morning. Potassium is 6.5 reportedly. Patient is asymptomatic aside from some fatigue that he has been worked up for in the outpatient setting over a period of time. He denies any current complaints. Related Data Home Medications Medication Instructions Recorded Confirmed cholecalciferol (vitamin D3) 2,000 units PO DAILY 06/20/16 11/08/20 nitroglycerin 0.4 mg SUBLINGUAL PRN #25 tab 11/22/16 11/08/20 glucosamine HCl 750 mg tablet 1,500 mg PO DAILY tab 07/11/18 11/08/20 acetaminophen 500 mg tablet 1,000 mg PO Q6H PRN tab 10/31/18 11/08/20 sildenafil 100 mg tablet 50 - 100 mg PO DAILY PRN #10 tab 12/11/18 11/08/20 aspirin 81 mg tablet,delayed 81 mg PO DAILY 10/26/19 11/08/20 release latanoprost 0.005 % eye drops 1 drp OP QPM 10/26/19 11/08/20 pramipexole 0.125 mg tablet 0.125 mg PO HS #90 tab-cap 04/19/20 11/08/20 mirtazapine 7.5 mg tablet 1.875 - 3.75 mg PO QHS #30 tab 06/02/20 11/08/20 lovastatin 20 mg tablet 20 mg PO DAILY #90 tab-cap 07/07/20 11/08/20 ferrous gluconate 240 mg (27 mg 240 mg PO DAILY #90 tab 07/21/20 11/08/20 iron) tablet bupropion HCl 150 mg 24 hr tablet, 150 mg PO QAM #90 tab 08/18/20 11/08/20 extended release bupropion HCl 300 mg 24 hr tablet, 300 mg PO QAM #90 tab 08/18/20 11/08/20 extended release cyanocobalamin (vitamin B-12) 1,000 mcg IJ Q MONTH #3 vial 10/10/20 11/08/20 1,000 mcg/mL injection solution meloxicam 15 mg tablet 7.5 - 15 mg PO DAILY PRN #90 10/10/20 11/08/20 tab-cap syringe with needle 3 mL 21 gauge #15 ndl 10/12/20 11/08/20 x 1 gabapentin 800 mg tablet 800 mg PO HS #90 tab-cap 10/21/20 11/08/20 lisinopril 10 mg tablet 10 mg PO DAILY #90 tab-cap 10/21/20 11/08/20 vortioxetine 10 mg tablet 5 mg PO DAILY #30 tab 10/30/20 11/08/20 Previous Rx's Medication Instructions Recorded sildenafil 100 mg tablet 50 - 100 mg PO DAILY PRN #10 tab 12/11/18 pramipexole 0.125 mg tablet 0.125 mg PO HS #90 tab-cap 04/19/20 mirtazapine 7.5 mg tablet 1.875 - 3.75 mg PO QHS #30 tab 06/02/20 lovastatin 20 mg tablet 20 mg PO DAILY #90 tab-cap 07/07/20 ferrous gluconate 240 mg (27 mg 240 mg PO DAILY #90 tab 07/21/20 iron) tablet bupropion HCl 150 mg 24 hr tablet, 150 mg PO QAM #90 tab 08/18/20 extended release bupropion HCl 300 mg 24 hr tablet, 300 mg PO QAM #90 tab 08/18/20 extended release cyanocobalamin (vitamin B-12) 1,000 mcg IJ Q MONTH #3 vial 10/10/20 1,000 mcg/mL injection solution meloxicam 15 mg tablet 7.5 - 15 mg PO DAILY PRN #90 10/10/20 tab-cap syringe with needle 3 mL 21 gauge #15 ndl 10/12/20 x 1 gabapentin 800 mg tablet 800 mg PO HS #90 tab-cap 10/21/20 lisinopril 10 mg tablet 10 mg PO DAILY #90 tab-cap 10/21/20 vortioxetine 10 mg tablet 5 mg PO DAILY #30 tab 10/30/20 Allergies Allergy/AdvReac Type Severity Reaction Status Date / Time terbinafine Allergy Intermediate Verified 11/08/20 11:35 diclofenac AdvReac Intermediate Diarrhea, Verified 11/08/20 11:35 UPSET STOMACH General Stated Complaint: [employer] PAWEL: 2 Review of Systems Narrative: Review of systems obtained x7 aside from where indicated in HPI [facility] Medical History Atherosclerosis of [place] coronary artery [place] 1991: negative nuclear stress test : echocardiogram:mild aortic stenosis/EF normal Diarrhea Elevated PSA, between 10 and less than 20 ng/ml Essential hypertension Gastroesophageal reflux disease Hyperlipidemia Obstructive sleep apnea syndrome CPAP POLST (Physician Orders for Life-Sustaining Treatment) Prostate cancer radiation therapy completed 07/2020 Wound infection Surgical History Colonoscopy - MAC (06/25/16) History of aortic valve replacement (~2016) Hx of CABG (~2016) [place] [facility] [place] Valve replacement Stent placement Family History Mother , age 59 Essential hypertension Heart disease Ovarian cancer Father , age 89 Diabetes Essential hypertension Heart disease Hyperlipidemia Stroke Prostate cancer Brother Essential hypertension Heart disease Hyperlipidemia Prostate cancer Maternal Grandfather No problems noted. Paternal Grandfather No problems noted. Maternal Grandmother No problems noted. Paternal Grandmother Essential hypertension Heart disease Son No problems noted. Son No problems noted. Social History Smoking/Tobacco Use Status: Former Tobacco Use Smoking risk assessment performed?: Yes Alcohol Intake: current Alcohol Intake frequency: a few times a month Alcohol type: beer Drug use: Never Substance use type: does not use Counseling given: No Counseling provided: none Household members: spouse Pets and animals: Yes Pets and animals: cat(s) Do you think of yourself as: straight/heterosexual Current gender identity: male What is your relationship status?: How often do you talk on the phone with friends or family?: decline to answer How often do you get together with friends or relatives?: decline to answer How often do you attend scientology or mormonism services?: 1-3 times per year Do you belong to any clubs or organized social groups?: yes Panel score (0-1 are the most socially isolated patients): 2 What type of physical activity do you participate in: none and yoga Frequency: 1-2 times per week Leslie/Restoration: Religious Special leslie needs: No Seatbelt use: sometimes Helmet use: Yes Helmet use: always Drive intox or ride w/intox driver's license reviewing officer: No Do you feel safe at home: Yes Do you feel safe in your relationship?: Yes Exam Const General: cooperative and no acute distress HENMT Mouth: oral mucosae normal Eyes Pupils: PERRL Resp Effort & Inspection: normal respiratory effort Auscultation: clear to auscultation bilaterally Cardio Rate: regular rate Rhythm: regular rhythm Skin General skin exam: no rashes or lesions noted Neuro General: patient alert and patient oriented x3 Course Vital Signs Vital signs: Vital Signs Temperature 36.5 C 11/08/20 11:31 Pulse 69 11/08/20 11:31 Respiratory Rate 15 11/08/20 11:31 Blood Pressure 150/66 H 11/08/20 11:31 Pulse Oximetry 99 11/08/20 11:31 Temperature 36.5 C 11/08/20 11:31 Temperature Source Temporal Artery Scan 11/08/20 11:31 Pulse 64 11/08/20 11:33 Pulse 62 11/08/20 11:40 Respiratory Rate 14 11/08/20 11:40 Respiratory Effort Non-Labored 11/08/20 11:42 Respiratory Depth Normal 11/08/20 11:42 Respiratory Pattern Normal 11/08/20 11:42 Blood Pressure 150/66 H 11/08/20 11:33 Blood Pressure Mean 89 11/08/20 11:33 Blood Pressure Position Supine 05/25/21 11:31 Pulse Oximetry 99 11/08/20 11:40 Oxygen Delivery Method Room Air 11/08/20 11:31 Oxygen Flow Rate 0 11/08/20 11:31 Pain Level 0 11/08/20 11:31 Lab/Test Results Lab/Test Results: Laboratory Tests Range/Units 11/08/20 11/08/20 11:35 11:35 WBC (4.4-10.8) 10^3/uL 4.73 RBC (4.36-5.78) 10^6/uL 3.84 L Hgb (13.5-17.5) g/dL 11.8 L Hct (40.0-50.0) % 36.6 L MCV (80-95) fL 95.3 H MCH (27.0-33.0) pg 30.7 MCHC (32.0-36.0) % 32.2 RDW (11.8-14.1) % 12.7 Plt Count (130-400) 10^3/uL 134 MPV (8.0-11.0) fL 9.4 Immature Gran % 1.3 Neutrophils % 72.0 Lymphocytes % 10.4 Monocytes % 10.4 Eosinophils % 5.7 Basophils % 0.2 Nucleated RBC % % 0 Absolute Neutrophils (1.2-6.7) 10^3/uL 3.41 Absolute Lymphocytes (1.2-3.4) 10^3/uL 0.49 L Absolute Monocytes (0.1-0.8) 10^3/uL 0.49 Absolute Eosinophils (0.0-0.7) 10^3/uL 0.27 Absolute Basophils (0.0-0.2) 10^3/uL 0.01 Sodium (136-145) mmol/L 140 Potassium (3.5-5.1) mmol/L 6.4 H* Chloride (98-107) mmol/L 109 H Carbon Dioxide (21.0-32.0) mmol/L 22.6 Anion Gap (3-11) mmol/L 8.4 BUN (7-18) mg/dL 28 H Creatinine (0.70-1.30) mg/dL 2.0 H Estimated GFR/1.73 m2 (mL/min/1.73m2) 32.65 Glucose (74-106) mg/dL 100 Calcium (8.5-10.1) mg/dL 8.7 Magnesium (1.8-2.4) mg/dL 2.1 Total Bilirubin (0.2-1.0) mg/dL 0.3 AST (15-37) U/L 8 L ALT (16-63) U/L 21 Alkaline Phosphatase (46-116) U/L 82 Total Protein (6.4-8.2) g/dL 7.2 Albumin (3.4-5.0) g/dL 3.9
[2020-11-08 12:20] LABS: Creatine Kinase 96 U/L (39-308)
[2020-11-08] MEDS: Sodium Zirconium Cyclosilicate 10 GM PKT PO ×2 (12:42→19:35)
[2020-11-08 12:58] LABS: Source Nasal/Nares
--- OUTSIDE RECORDS SUMMARY | 2020-11-08 13:32 | XMS_ITS ---
:1945 Author Care Team Providers Name Role Phone [facility] Primary Care Provider [phone] CHRISTIANO ZALDIVAR MD Inclusion Intern [phone] TONO SAGE ([facility]) Primary Care Provider [phone] Allergies Code Code System Name Reaction Severity Status Onset NKDA ? Medications Name Status Start Date Stop Date ? ? aspirin Active ? Not available 325mg daily citalopram Active ? Not available 20mg daily cyanocobalamin (vit B-12) 1,000 mcg/mL injection solution Comple rosanne ? 01/09/2018 Inject 1 mL every month by intramuscular route. dorzolamide-timolol Active ? Not availabl e 1 drop in left eye BID Fish Oil Completed ? 01/09/2018 1000mg BID gabapentin 100 mg capsule Completed 02/23/20142017 see comment Capsule: 3 hours before bedtime gabapentin 800 mg tablet Active ? Not nel ilable Take 1 tablet every day by oral route at bedtime. Glucosamine Active ? Not available 500mg BID ketoconazole Completed ? 01/09/2018 1thin layer daily lisinopril Active ? Not available 5mg daily lovastatin Active ? Not available 10mg daily meloxicam Active ? Not available 25mg daily mirtazapine Active ? Not available 7.5mg daily naproxen sodium 220 mg capsule Completed 04/14/2012 0 10/14/2012 1 Capsule: bid - twice daily Nasonex Completed ? 01/09/2018 2sprays daily Neurontin Completed ? 01/09/2018 800mg at bedtime Niacin CR Completed ? 01/09/2018 500mg BID Norvasc Active ? Not available 5mg daily pramipexole Active ? Not available 0.25mg take 2-3hrs before bedtime Requip 1 mg tablet Completed 06/26/2012 06/20/2017 1 Tablet: 2-3hrs before bedtime triamcinolone acetonide Active ? Not avai lable 1thin layer TID Tylenol Active ? Not available 1000mg PRN Tylenol Allergy Sinus Day Time Active ? N ot available daily Vitamin B12 Active ? Not available monthly Vitamin D3 Completed ? 01/09/2018 [id number] daily vitamin E Completed ? 01/09/2018 400units daily Zantac Active ? Not available 75mg BID Problems Name Status Onset Date Source ? Coronary Arteriosclerosis Active 12/03/2016 ? Dyslipidemia Active 01/06/2018 ? Depressive Disorder Active 01/06/2018 ? Hypertensive Disorder Active 01/06/2018 ? Gastroesophageal Reflux Disease Active 01/06/2018 ? Family History of Benign Prostatic Active 01/06/2018 ? Hyperplasia Obstructive Sleep Apnea Syndrome Active ? History Restless Legs Active ? History Irregular Sleep-wake Pattern Active ? His tory Aftercare Active ? History Procedures Date Name Performed by ? ? Tonsillectomy Information not milli gage Notes: as a child Results Lab Results None recorded. Past Encounters None recorded. Social History Tobacco Smoking Status Former Smoker Notes: quit 35 +years ago Vaccine List None recorded. Plan of Care Reminders Provider Appointments None ? ? recorded. Lab None ? ? recorded. Referral None ? ? recorded. Procedures None ? ? recorded. Surgeries None ? ? recorded. Imaging None ? ? recorded. Vitals 03/02/2019 03:45PM Office 30 Height Weight BMI Blood Pressure 170.18 cm 91.4 kg 31.6 kg/m2 140/82 mm[Hg] 01/09/2018 02:45PM Office 30 Height Weight BMI Blood Pressure 170.18 cm 93.03 kg 32.1 kg/m2 120/68 mm[Hg] 09/05/2017 Height Weight Blood Pressure 170.18 cm 92.99 kg 148/70 mm[Hg] 06/20/2017 Height Weight Blood Pressure 170.18 cm 92.71 kg 128/84 mm[Hg] 01/07/2017 Weight Blood Pressure 91.17 kg 120/70 mm[Hg] 02/27/2016 Height Weight Blood Pressure 170.18 cm 92.56 kg 128/68 mm[Hg] 08/22/2015 Height Weight Blood Pressure 170.18 cm 95.31 kg 132/72 mm[Hg] 06/21/2015 Height Weight Blood Pressure 170.18 cm 93.69 kg 138/75 mm[Hg] 02/17/2014 Height Weight Blood Pressure 170.18 cm 90.35 kg 132/74 mm[Hg] 11/26/2012 Height Weight Blood Pressure 170.18 cm 92.53 kg 130/64 mm[Hg] 10/14/2012 Height Weight Blood Pressure 170.18 cm 90.49 kg 148/72 mm[Hg] 08/06/2012 Height Weight Blood Pressure 170.18 cm 94.8 kg 122/68 mm[Hg] 04/30/2012 Height Weight Blood Pressure 170.18 cm 88.45 kg 122/62 mm[Hg]
[2020-11-08] MEDS: Normal Saline 1,000 ML 80 ML IV (13:38)
--- NOTE | 2020-11-08 14:17 | W.PM.HP.N ---
Date of service: 11/08/20 Time of Service: 14:17 Assessment and Plan Assessment and plan (1) Acute hyperkalemia: Status: Acute Assessment and plan: Multifactorial: reduced renal function that is likely acute on chronic, as well intake related. He had been drinking Gatoraide routinely as well as a glass of OJ daily and frequently eats potatoes. Renal diet. Lokelma now and tonight. Monitor K+ Telemetry. (2) Renal failure (ARF), acute on chronic: Status: Acute Assessment and plan: H/O nephrectomy for renal cell CA in Apr 2020. Creatinine prior to nephrectomy in January 2020 was 1.19. Avoid nephrotoxic agents. (3) Atherosclerosis of [place] coronary artery: Status: Acute Assessment and plan: Cont ASA, statin. No anginal symptoms. (4) Essential hypertension: Status: Acute Assessment and plan: He takes a low dose of lisinopril; will hold now in background of MERLY and hyperkalemia. (5) Hyperlipidemia: Status: Acute Assessment and plan: Cont statin (6) Arthritis of left ankle: Status: Chronic Assessment and plan: Takes meloxicam frequently and endorses that this has been beneficial. Discussed holding this in background of MERLY. (7) Depressive disorder: Status: Acute Assessment and plan: Cont Buproprion XL History of Present Illness History of Present Illness Chief Complaint: Hyperkalemia Narrative: This is a 75 yo male with a PMH of renal cell cancer / s/p nephrectomy, prostate cancer, CKD, CAD/[place]/CABG, biorosthetic aortic valve replacement, HTN, ARLETTE, HLD. He was sent to the ED by his PCP because of hyperkalemia noted on lab testing. His K+ was reported as 6.5. He denied any palpitations, CP, syncope, pre-syncope. His repeat K+ was 6.4. EKG was unremarkable. Review of Systems All systems reviewed & are unremarkable except as noted in HPI and below PFSH Medical History Atherosclerosis of [place] coronary artery mi 1991: negative nuclear stress test : echocardiogram:mild aortic stenosis/EF normal Diarrhea Elevated PSA, between 10 and less than 20 ng/ml Essential hypertension Gastroesophageal reflux disease Hyperlipidemia Obstructive sleep apnea syndrome CPAP POLST (Physician Orders for Life-Sustaining Treatment) Prostate cancer radiation therapy completed 07/2020 Wound infection Surgical History Colonoscopy - MAC (06/25/16) History of aortic valve replacement (~2016) Hx of CABG (~2016) Procedures CABGx3: -2012 [facility] [place] Aortic Valve replacement Stent placement Family History Mother , age 59 Essential hypertension Heart disease Ovarian cancer Father , age 89 Diabetes Essential hypertension Heart disease Hyperlipidemia Stroke Prostate cancer Brother Essential hypertension Heart disease Hyperlipidemia Prostate cancer Maternal Grandfather No problems noted. Paternal Grandfather No problems noted. Maternal Grandmother No problems noted. Paternal Grandmother Essential hypertension Heart disease Son No problems noted. Son No problems noted. Social History Smoking/Tobacco Use Status: Former Tobacco Use Smoking risk assessment performed?: Yes Alcohol Intake: current Alcohol Intake frequency: a few times a month Alcohol type: beer Drug use: Never Substance use type: does not use Counseling given: No Counseling provided: none Household members: spouse Pets and animals: Yes Pets and animals: cat(s) Do you think of yourself as: straight/heterosexual Current gender identity: male What is your relationship status?: How often do you talk on the phone with friends or family?: decline to answer How often do you get together with friends or relatives?: decline to answer How often do you attend gnosticism or restorationism services?: 1-3 times per year Do you belong to any clubs or organized social groups?: yes Panel score (0-1 are the most socially isolated patients): 2 What type of physical activity do you participate in: none and yoga Frequency: 1-2 times per week Leslie/Druze: Mu-Ism Special leslie needs: No Seatbelt use: sometimes Helmet use: Yes Helmet use: always Drive 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 Do you feel safe at home: Yes Do you feel safe in your relationship?: Yes Meds Allergies and Home Medications Allergies Allergy/AdvReac Type Severity Reaction Status Date / Time terbinafine Allergy Intermediate Verified 11/08/20 11:35 diclofenac AdvReac Intermediate Diarrhea, Verified 11/08/20 11:35 UPSET STOMACH Home Medications Medication Instructions Recorded Confirmed Type cholecalciferol (vitamin D3) 2,000 units PO DAILY 06/20/16 11/08/20 History nitroglycerin 0.4 mg SUBLINGUAL PRN #25 tab 11/22/16 11/08/20 History glucosamine HCl 750 mg tablet 1,500 mg PO DAILY tab 07/11/18 11/08/20 History acetaminophen 500 mg tablet 1,000 mg PO Q6H PRN tab 10/31/18 11/08/20 History sildenafil 100 mg tablet 50 - 100 mg PO DAILY PRN #10 tab 12/11/18 11/08/20 Rx aspirin 81 mg tablet,delayed 81 mg PO DAILY 10/26/19 11/08/20 History release latanoprost 0.005 % eye drops 1 drp OP QPM 10/26/19 11/08/20 History pramipexole 0.125 mg tablet 0.125 mg PO HS #90 tab-cap 04/19/20 11/08/20 Rx mirtazapine 7.5 mg tablet 1.875 - 3.75 mg PO QHS #30 tab 06/02/20 11/08/20 Rx lovastatin 20 mg tablet 20 mg PO DAILY #90 tab-cap 07/07/20 11/08/20 Rx ferrous gluconate 240 mg (27 mg 240 mg PO DAILY #90 tab 07/21/20 11/08/20 Rx iron) tablet bupropion HCl 150 mg 24 hr tablet, 150 mg PO QAM #90 tab 08/18/20 11/08/20 Rx extended release bupropion HCl 300 mg 24 hr tablet, 300 mg PO QAM #90 tab 08/18/20 11/08/20 Rx extended release cyanocobalamin (vitamin B-12) 1,000 mcg IJ Q MONTH #3 vial 10/10/20 11/08/20 Rx 1,000 mcg/mL injection solution meloxicam 15 mg tablet 7.5 - 15 mg PO DAILY PRN #90 10/10/20 11/08/20 Rx tab-cap syringe with needle 3 mL 21 gauge #15 ndl 10/12/20 11/08/20 Rx x 1 gabapentin 800 mg tablet 800 mg PO HS #90 tab-cap 10/21/20 11/08/20 Rx lisinopril 10 mg tablet 10 mg PO DAILY #90 tab-cap 10/21/20 11/08/20 Rx vortioxetine 10 mg tablet 5 mg PO DAILY #30 tab 10/30/20 11/08/20 Rx tamsulosin 0.4 mg PO QHS 11/08/20 11/08/20 History Exam Const General: cooperative and no acute distress Nutritional Appearance: obese Orientation: alert and oriented x3 Eyes Sclera: sclerae normal Pupils: PERRL Resp Effort & Inspection: normal respiratory effort Auscultation: clear to auscultation bilaterally Cardio Rate: regular rate Rhythm: regular rhythm Heart Sounds: S1 normal, S2 normal and murmur GI Palpation: soft and nontender Skin General skin exam: no rashes or lesions noted Extrem General: no pedal edema and no calf tenderness Psych Appearance: grossly normal Mental Status: mental status grossly normal Speech and Movement: speech and movement normal Affect: normal affect Results Labs Result diagrams: 11/08/20 11:35 11/08/20 11:35 Labs: Laboratory Results - last 24 hr 11/08/20 11/08/20 11/08/20 11:35 11:35 11:35 WBC 4.73 RBC 3.84 L Hgb 11.8 L Hct 36.6 L MCV 95.3 H MCH 30.7 MCHC 32.2 RDW 12.7 Plt Count 134 MPV 9.4 Immature Gran % 1.3 Neutrophils % 72.0 Lymphocytes % 10.4 Monocytes % 10.4 Eosinophils % 5.7 Basophils % 0.2 Nucleated RBC % 0 Absolute Neutrophils 3.41 Absolute Lymphocytes 0.49 L Absolute Monocytes 0.49 Absolute Eosinophils 0.27 Absolute Basophils 0.01 Sodium 140 Potassium 6.4 H* Chloride 109 H Carbon Dioxide 22.6 Anion Gap 8.4 BUN 28 H Creatinine 2.0 H Estimated GFR/1.73 m2 32.65 Glucose 100 Calcium 8.7 Magnesium 2.1 Total Bilirubin 0.3 AST 8 L ALT 21 Alkaline Phosphatase 82 Creatine Kinase 96 Total Protein 7.2 Albumin 3.9 COVID-19 Source 11/08/20 12:30 WBC RBC Hgb Hct MCV MCH MCHC RDW Plt Count MPV Immature Gran % Neutrophils % Lymphocytes % Monocytes % Eosinophils % Basophils % Nucleated RBC % Absolute Neutrophils Absolute Lymphocytes Absolute Monocytes Absolute Eosinophils Absolute Basophils Sodium Potassium Chloride Carbon Dioxide Anion Gap BUN Creatinine Estimated GFR/1.73 m2 Glucose Calcium Magnesium Total Bilirubin AST ALT Alkaline Phosphatase Creatine Kinase Total Protein Albumin COVID-19 Source Nasal/nares Last Vital Signs Temp 36.9 C 11/08/20 13:40 Pulse 67 11/08/20 13:48 Resp 20 11/08/20 13:40 BP 120/69 11/08/20 13:40 Pulse Ox 98 11/08/20 13:40 COVID-19 Screening Have you, or household traveled for leisure in last 14 days?: No Had IN PERSON contact w/suspected or confirmed C-19 person: No
[2020-11-08] MEDS: Heparin 5,000 UNITS/ML VIAL 5000 UNITS SC ×2 (15:37→21:49)
[2020-11-08 16:21] LABS: COVID-19 PCR Negative (Negative)
[2020-11-08] MEDS: Lovastatin 20 MG TAB PO (19:36)
[2020-11-08] MEDS: Latanoprost 0.005% 2.5 ML BTL OP (19:37)
[2020-11-08 19:39] LABS: Anion Gap 7.9 mmol/L (3-11); BUN 28 mg/dL (7-18); CO2 22.1 mmol/L (21.0-32.0); CREATININE 2.2 mg/dL (0.70-1.30); Calcium 8.4 mg/dL (8.5-10.1); Chloride 111 mmol/L (98-107); Estimated GFR 29.25 (mL/min/1.73m2); Glucose 97 mg/dL (74-106); Potassium 5.9 mmol/L (3.5-5.1); Sodium 141 mmol/L (136-145)
[2020-11-08] MEDS: Gabapentin 800 MG TAB PO (21:50)
[2020-11-08] MEDS: Pramipexole 0.25 MG TAB 0.125 MG PO (21:50)
[2020-11-09] MEDS: Normal Saline 1,000 ML 80 ML IV (02:14)
[2020-11-09] MEDS: Heparin 5,000 UNITS/ML VIAL 5000 UNITS SC (05:55)
[2020-11-09 06:56] LABS: HCT 34.6 % (40.0-50.0); HGB 11.5 g/dL (13.5-17.5); MCH 31.3 pg (27.0-33.0); MCHC 33.2 % (32.0-36.0); MCV 94.3 fL (80-95); MPV 9.5 fL (8.0-11.0); Platelet Count 141 10^3/uL (130-400); RBC 3.67 10^6/uL (4.36-5.78); RDW 12.5 % (11.8-14.1); RDW-SD 43.7 fL; WBC 5.15 10^3/uL (4.4-10.8)
[2020-11-09 07:11] LABS: Anion Gap 9.5 mmol/L (3-11); BUN 25 mg/dL (7-18); CO2 20.5 mmol/L (21.0-32.0); Calcium 8.3 mg/dL (8.5-10.1); Chloride 111 mmol/L (98-107); Estimated GFR 32.65 (mL/min/1.73m2); Glucose 133 mg/dL (74-106); Potassium 5.6 mmol/L (3.5-5.1); Sodium 141 mmol/L (136-145)
[2020-11-09 07:29] VITALS: BP 118/68; PULSE 67; RESP 17; TEMP 36.6; O2SAT 96
[2020-11-09] MEDS: buPROPion-XL 150 MG TABCR 300 MG PO (07:39)
[2020-11-09] MEDS: Cholecalciferol (Vitamin D3) 1,000 UNIT TAB 2000 UNITS PO (07:39)
[2020-11-09] MEDS: Glucosamine 500 MG CAP 1500 MG PO (07:39)
[2020-11-09] MEDS: Aspirin E.C. 81 MG TABEC PO (07:39)
[2020-11-09] MEDS: Normal Saline Flush 10 ML SYR IVP (07:40)
[2020-11-09 08:03] VITALS: PULSE 72
[2020-11-09] MEDS: Sodium Zirconium Cyclosilicate 10 GM PKT PO (09:30)
--- NOTE | 2020-11-09 10:13 | DSE_ITS ---
Date of service: 11/09/20 Time of Service: 10:13 DS: Diagnosis Discharge Diagnosis (1) Acute hyperkalemia: Status: Acute (2) Renal failure (ARF), acute on chronic: Status: Acute (3) Atherosclerosis of [place] coronary artery: Status: Acute (4) Essential hypertension: Status: Acute (5) Hyperlipidemia: Status: Acute (6) Arthritis of left ankle: Status: Chronic (7) Depressive disorder: Status: Acute Discharge Plan Disposition Patient Disposition: HOME Condition: Serious Discharge Details Reason For Visit: Hyperkalemia Admit Date/Time: 11/08/20 12:14 Admit Provider: Diogenes Bernabe Attending Provider: Diogenes Bernabe Primary Care Provider: [facility] Course Hospital Course: This is a 75 yo male with a PMH of renal cell cancer / s/p nephrectomy, prostate cancer, CKD, CAD/[place]/CABG, bioprosthetic aortic valve replacement, HTN, ARLETTE, HLD.? He was sent to the ED by his PCP because of hyperkalemia noted on lab testing.? His K+ was reported as 6.5.? He denied any palpitations, CP, syncope, pre-syncope.? His repeat K+ was 6.4.? EKG was unremarkable. ? He was given 2 doses of Lokelma and the following AM his K had improved to 5.6. He was given another dose prior to discharge. The etiology is likely his diminished renal function along with his excessive intake; OJ daily and frequent Gatoraide and potatoes. He was placed on a renal diet and was given information on a renal diet. He does have a CT scan scheduled for this coming Saturday as an outpatient to follow up with his renal cell carcinoma. F/U with his PCP in 1-2 weeks. BMP on Saturday11/11/20. Home Meds and New Rx's Prescriptions: Continued acetaminophen [Tylenol Extra Strength] 500 mg tablet 1,000 mg PO Q6H PRNRF: 0 glucosamine HCl 750 mg tablet 1,500 mg PO DAILY RF: 0 aspirin 81 mg tablet,delayed release (DR/EC) 81 mg PO DAILY RF: 0 latanoprost 0.005 % drops 1 drp OP QPM RF: 0 Trintellix 10 mg tablet 5 mg PO DAILY Qty: 30 RF: 1 nitroglycerin 0.4 MG tablet, sublingual 0.4 mg Sublingual PRN Qty: 25 RF: 2 sildenafil 100 mg tablet 50 - 100 mg PO DAILY PRN (Reason: sexual activity) Qty: 10 RF: 2 pramipexole 0.125 mg tablet 0.125 mg PO HS Qty: 90 RF: 3 mirtazapine 7.5 mg tablet 1.875 - 3.75 mg PO QHS Qty: 30 RF: 6 lovastatin 20 mg tablet 20 mg PO DAILY Qty: 90 RF: 4 ferrous gluconate 240 mg (27 mg iron) tablet 240 mg PO DAILY Qty: 90 RF: 2 bupropion HCl 300 mg tablet extended release 24 hr 300 mg PO QAM Qty: 90 RF: 4 bupropion HCl 150 mg tablet extended release 24 hr 150 mg PO QAM Qty: 90 RF: 4 Hold Instructions: Home Medication placed on hold at Doctor's office cyanocobalamin (vitamin B-12) 1,000 mcg/mL solution 1,000 mcg IJ Q MONTH Qty: 3 RF: 3 gabapentin 800 mg tablet 800 mg PO HS Qty: 90 RF: 2 lisinopril 10 mg tablet 10 mg PO DAILY Qty: 90 RF: 4 Hold Instructions: Hyperkalemia cholecalciferol (vitamin D3) 1,000 UNITS tablet 2,000 units PO DAILY RF: 0 tamsulosin 0.4 mg capsule 0.4 mg PO QHS RF: 0 Discontinued meloxicam 15 mg tablet 7.5 - 15 mg PO DAILY PRN (Reason: joint pain) Qty: 90 RF: 0 No Action (DME) BD Luer-Sofia Syringe 3 mL 21 gauge x 1 syringe 1 ea Miscellaneous monthly Qty: 15 RF: 0 Discharge Instructions Instructions: Chronic Kidney Disease Diet (DC) Stand Alone Forms: Nursing Discharge Form Referrals: Swetha Chaidez MD [Primary Care Provider] - 11/24/20 2:00 pm (with deo. ) Activity:: Activity as Tolerated Equipment/Supplies:: No Equipment Needed Diet:: low potassium and sodium Discharge Orders Discharge Orders: Discharge Order (Routine); Ordered 11/09/20 Ordered By: Diogenes Bernabe Other Ambulatory Orders: Basic Metabolic Panel (Routine) Location: None Selected Ordered By: Diogenes Bernabe DS: Summary Time Spent with Patient providing and/or coordinating discharge services: Greater than 30 minutes Status at Discharge Functional status at discharge: independent ambulation Overall status at discharge: patient is progressing back to baseline Mental Status: mental status grossly normal Speech and Movement: speech and movement normal Mood: congruent mood Affect: normal affect Exam Const General: cooperative and no acute distress Resp Effort & Inspection: normal respiratory effort Auscultation: clear to auscultation bilaterally Cardio Rate: regular rate Rhythm: regular rhythm Heart Sounds: S1 normal and S2 normal GI Palpation: soft and nontender Neuro General: patient alert, patient oriented x3 and no focal motor deficits Cognition: normal cognition Speech: speech normal Extrem General: no calf tenderness and normal gait Psych Mental Status: mental status grossly normal Speech and Movement: speech and movement normal Mood: congruent mood Affect: normal affect DS: Data Vitals/I&O Vitals and I&O: Vital Signs Temperature 36.6 C 11/09/20 07:29 Temperature Source Tympanic 11/09/20 07:29 Pulse 72 11/09/20 08:03 Pulse Rhythm Regular 11/09/20 07:00 Pulse 71 11/08/20 13:01 Respiratory Rate 17 11/09/20 07:29 Respiratory Effort Non-Labored 11/09/20 07:00 Respiratory Depth Normal 11/09/20 07:00 Respiratory Pattern Normal 11/09/20 07:00 Blood Pressure 118/68 11/09/20 07:29 Blood Pressure Mean 80 11/08/20 13:01 Blood Pressure Position Supine 11/08/20 11:31 Pulse Oximetry 96 11/09/20 07:29 Oxygen Delivery Method Room Air 11/09/20 07:29 Oxygen Flow Rate 0 11/09/20 07:29 Pain Level 0 11/08/20 23:56 Intake & Output 11/08/20 11/08/20 11/09/20 11:59 23:59 11:59 Intake Total 540 / 540 1000 / 1000 Balance 540 / 540 1000 / 1000 Weight 99.8 kg Intake: IV 1000 / 1000 Oral 540 / 540 Other: Urine Appearance Clear Clear Comment Pt voids in bathroom independently Voiding Methods Toilet Data Completed and Pending Labs on day of discharge: Labs from last 24 hours 11/09/20 11/09/20 11/08/20 06:35 06:35 19:22 WBC 5.15 RBC 3.67 L Hgb 11.5 L Hct 34.6 L MCV 94.3 MCH 31.3 MCHC 33.2 RDW 12.5 Plt Count 141 MPV 9.5 Immature Gran % Neutrophils % Lymphocytes % Monocytes % Eosinophils % Basophils % Nucleated RBC % Absolute Neutrophils Absolute Lymphocytes Absolute Monocytes Absolute Eosinophils Absolute Basophils Sodium 141 141 Potassium 5.6 H 5.9 H Chloride 111 H 111 H Carbon Dioxide 20.5 L 22.1 Anion Gap 9.5 7.9 BUN 25 H 28 H Creatinine 2.0 H 2.2 H Estimated GFR/1.73 m2 32.65 29.25 Glucose 133 H 97 Calcium 8.3 L 8.4 L Magnesium Total Bilirubin AST ALT Alkaline Phosphatase Creatine Kinase Total Protein Albumin COVID-19 Source SARS-CoV-2 (PCR) 11/08/20 11/08/20 11/08/20 12:30 11:35 11:35 WBC 4.73 RBC 3.84 L Hgb 11.8 L Hct 36.6 L MCV 95.3 H MCH 30.7 MCHC 32.2 RDW 12.7 Plt Count 134 MPV 9.4 Immature Gran % 1.3 Neutrophils % 72.0 Lymphocytes % 10.4 Monocytes % 10.4 Eosinophils % 5.7 Basophils % 0.2 Nucleated RBC % 0 Absolute Neutrophils 3.41 Absolute Lymphocytes 0.49 L Absolute Monocytes 0.49 Absolute Eosinophils 0.27 Absolute Basophils 0.01 Sodium Potassium Chloride Carbon Dioxide Anion Gap BUN Creatinine Estimated GFR/1.73 m2 Glucose Calcium Magnesium Total Bilirubin AST ALT Alkaline Phosphatase Creatine Kinase 96 Total Protein Albumin COVID-19 Source Nasal/nares SARS-CoV-2 (PCR) Negative 11/08/20 11:35 WBC RBC Hgb Hct MCV MCH MCHC RDW Plt Count MPV Immature Gran % Neutrophils % Lymphocytes % Monocytes % Eosinophils % Basophils % Nucleated RBC % Absolute Neutrophils Absolute Lymphocytes Absolute Monocytes Absolute Eosinophils Absolute Basophils Sodium 140 Potassium 6.4 H* Chloride 109 H Carbon Dioxide 22.6 Anion Gap 8.4 BUN 28 H Creatinine 2.0 H Estimated GFR/1.73 m2 32.65 Glucose 100 Calcium 8.7 Magnesium 2.1 Total Bilirubin 0.3 AST 8 L ALT 21 Alkaline Phosphatase 82 Creatine Kinase Total Protein 7.2 Albumin 3.9 COVID-19 Source SARS-CoV-2 (PCR) [facility] Medical History Atherosclerosis of [place]into coronary artery mi 1992 : negative nuclear stress test : echocardiogram:mild aortic stenosis/EF normal Diarrhea Elevated PSA, between 10 and less than 20 ng/ml Essential hypertension Gastroesophageal reflux disease Hyperlipidemia Obstructive sleep apnea syndrome CPAP POLST (Physician Orders for Life-Sustaining Treatment) Prostate cancer radiation therapy completed 07/2020 Wound infection Surgical History Colonoscopy - MAC (06/25/16) History of aortic valve replacement (~2016) Hx of CABG (~2016) [place] [facility] [place] Valve [place] Stent placement Family History Mother , age 59 Essential hypertension Heart disease Ovarian cancer Father , age 89 Diabetes Essential hypertension Heart disease Hyperlipidemia Stroke Prostate cancer Brother Essential hypertension Heart disease Hyperlipidemia Prostate cancer Maternal Grandfather No problems noted. Paternal Grandfather No problems noted. Maternal Grandmother No problems noted. Paternal Grandmother Essential hypertension Heart disease Son No problems noted. Son No problems noted. Social History Smoking/Tobacco Use Status: Former Tobacco Use Smoking risk assessment performed?: Yes Alcohol Intake: current Alcohol Intake frequency: a few times a month Alcohol type: beer Drug use: Never Substance use type: does not use Counseling given: No Counseling provided: none Household members: spouse Pets and animals: Yes Pets and animals: cat(s) Do you think of yourself as: straight/heterosexual Current gender identity: male What is your relationship status?: How often do you talk on the phone with friends or family?: decline to answer How often do you get together with friends or relatives?: decline to answer How often do you attend adventism or mormonism services?: 1-3 times per year Do you belong to any clubs or organized social groups?: yes Panel score (0-1 are the most socially isolated patients): 2 What type of physical activity do you participate in: none and yoga Frequency: 1-2 times per week Leslie/Anglican: Adventism Special leslie needs: No Seatbelt use: sometimes Helmet use: Yes Helmet use: always 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
[2020-11-09 11:23] VITALS: BP 135/74; PULSE 67; RESP 17; TEMP 36.3; O2SAT 100
--- NOTE | 2020-11-09 17:03 | INITIAL_ITS ---
- If Service Date Differs Date of service: 11/09/20 Time of Service: 17:03 Care Management Initial Assess REASON FOR HOSPITALIZATION:: Acute hyperkalemia PAST MEDICAL HISTORY/PAST SURGICAL HISTORY:: Medical History . Atherosclerosis of [place] coronary artery. mi 1991. : negative nuclear stress test. : echocardiogram:mild aortic stenosis/EF normal. Diarrhea. Elevated PSA, between 10 and less than 20 ng/ml. Essential hypertension. Gastroesophageal reflux disease. Hyperlipidemia. Obstructive sleep apnea syndrome. CPAP. POLST (Physician Orders for Life-Sustaining Treatment). Prostate cancer. radiation therapy completed 07/2020. Wound infection. Surgical History . Colonoscopy - MAC (06/25/16). History of aortic valve replacement (~2016). Hx of CABG (~2016). Procedures. CABGx3: [facility] [place]. Aortic Valve replacement. Stent placement PREVIOUS FUNCTIONAL STATUS/SOCIAL/FAMILY SUPPORTS:: Jefferson lives in [place], [place] with his Brinda. They have 2 children, a son and a daughter. Their son lives in [place], [place] and they have not seen him in a year because of Covid. Jefferson is independent at baseline. CURRENT FUNCTIONAL STATUS:: Jefferson was sitting up in bed when CM met with him. He was pleasant and agreeable to conversation. Jefferson stated that he expects to be discharged today. He will return on Saturday for a Ct scan and bloodwork. Jefferson denied the need for services at home. ADVANCE DIRECTIVES:: COLST on file Has patient been provided with info about the portal/API?: Yes Did the patient sign up for the portal?: Yes (previously) CODE STATUS:: Full Code INSURANCE COVERAGE / FINANCIAL ISSUES:: Medicare. [employer] CURRENT HOME/COMMUNITY SERVICES/EQUIPMENT:: none PRIMARY CARE PHYSICIAN:: Swetha Chaidez POTENTIAL DISCHARGE NEEDS:: Follow up with PCP and plan of care PATIENT/FAMILY EDUCATION NEEDS:: Review of discharge instructions, limitations, medications, follow up plan, Ask Me Three TRANSPORTATION:: via private vehicle with family PLAN:: Jefferson will be discharged home with no new services. He will follow up with his PCP and discharge plan of care and transport with family.
== END 2020-11-09 14:12 | disposition home or self-care (01) | DRG 641 ==
LOC: ER 12:14 → MS 13:30
PROVIDERS: Admitting Provider Family Medicine; Emergency Provider Physician Assistant; PCP Family Medicine; Visit Provider Family Medicine
DX: E87.5 Hyperkalemia (principal); N17.9 Acute kidney failure, unspecified; I12.9 Hypertensive chronic kidney disease with stage 1 through stage 4 chronic kidney disease, or unspecified chronic kidney disease; I25.10 Atherosclerotic heart disease of native coronary artery without angina pectoris; M19.072 Primary osteoarthritis, left ankle and foot; F32.9 Major depressive disorder, single episode, unspecified; Z85.528 Personal history of other malignant neoplasm of kidney; Z90.5 Acquired absence of kidney; K21.9 Gastro-esophageal reflux disease without esophagitis; G47.33 Obstructive sleep apnea (adult) (pediatric); C61 Malignant neoplasm of prostate; Z95.1 Presence of aortocoronary bypass graft; Z95.4 Presence of other heart-valve replacement; Z20.822 Contact with and (suspected) exposure to COVID-19; Z87.891 Personal history of nicotine dependence; N18.9 Chronic kidney disease, unspecified
CPT/HCPCS: 36415; 80048; 80053; 82550; 85027; 87635; 93005; 93306; 99285; 83735; 85025; 93010; 99223; 99239; 99284; J1644

== ENCOUNTER 2020-11-11 01:59 | Outpatient (CLI) | payer MEDICARE, OTHER, SELFPAY ==
[2020-11-11 08:25] LABS: Bilirubin Negative (Negative); Blood Negative (Negative); Clarity Clear (Clear); Glucose Negative (Negative); Ketones Negative (Negative); Leukocyte Esterase Negative (Negative); Nitrite Negative (Negative); Urobilinogen 0.2 EU/dL (Up TO 0.2); pH 5.5 (5-8)
== END 2020-11-11 02:00 | disposition home or self-care (01) ==
LOC: LBO 01:59
PROVIDERS: Urology; PCP Family Medicine; Visit Provider Family Medicine
DX: N17.9 Acute kidney failure, unspecified (principal); R30.0 Dysuria; D35.02 Benign neoplasm of left adrenal gland; R91.1 Solitary pulmonary nodule; Z85.528 Personal history of other malignant neoplasm of kidney; Z90.5 Acquired absence of kidney; Z12.89 Encounter for screening for malignant neoplasm of other sites; K40.90 Unilateral inguinal hernia, without obstruction or gangrene, not specified as recurrent
CPT/HCPCS: 74177; 80053; 71260; 81003; J3490; Q9967

== ENCOUNTER 2020-11-11 03:29 | Outpatient (CLI) | payer MEDICARE, OTHER, SELFPAY ==
[2020-11-11] MEDS: Omnipaque 350 MG/ML 50 ML BTL PO (08:49)
[2020-11-11 08:57] LABS: ALT 25 U/L (16-63); AST 13 U/L (15-37); Albumin 4.2 g/dL (3.4-5.0); Alkaline Phosphatase 86 U/L (46-116); Anion Gap 9.2 mmol/L (3-11); BUN 26 mg/dL (7-18); Bilirubin, Total 0.4 mg/dL (0.2-1.0); CO2 23.8 mmol/L (21.0-32.0); Calcium 9.1 mg/dL (8.5-10.1); Chloride 108 mmol/L (98-107); Estimated GFR 32.65 (mL/min/1.73m2); Glucose 102 mg/dL (74-106); Potassium 5.1 mmol/L (3.5-5.1); Sodium 141 mmol/L (136-145); Total Protein 7.6 g/dL (6.4-8.2)
[2020-11-11] MEDS: Breeza Beverage 473 ML BTL PO ×2 (10:35→10:38)
[2020-11-11] MEDS: Omnipaque 350 MG/ML 100 ML BTL IJ (10:36)
[2020-11-11] MEDS: Normal Saline - Diluent 50 ML VIAL IV (10:37)
[2020-11-11] MEDS: Normal Saline Flush 10 ML SYR IVP (10:37)
--- NOTE | 2020-11-11 10:38 | DI.CT_ITS ---
Exam(s) CT CHEST/ABD/PEL W EXAM: CT CHEST/ABD/PEL W CLINICAL HISTORY: RENAL CA SURVEILLANCE,S/P NEPHRECTOMY,? RECURRENCE,METS TECHNIQUE: CT examination of the chest, abdomen, and pelvis was performed utilizing intravenous inf usion of 50 cc of Omnipaque 350 with biphasic hepatic imaging. Oral contrast was also administered. COMPARISON: CT CT ABDOMEN PELVIS W from 01/27/2020 FINDINGS: Lungs are predominantly clear with a 10 x 6 x 4 millimeter in diameter left fissural pulmonary nodule , no prior chest CT available for comparison. Mild atelectasis or scarring in the lung bases.. No p leural effusion. No pleural based mass. No mediastinal or hilar adenopathy. No axillary or supraclavicular adenopathy. Tracheobronchial medhat e appears intact. No evidence of pulmonary embolic disease. Unremarkable appearance of thoracic aorta and major branch vessels. The liver appears normal with no focal hepatic lesion identified. Spleen is unremarkable in appearance. Pancreas appears intact. There is a fat containing left adrenal nodule consistent with adenoma, 13 millimeters maximal diamete r. There is a prior right nephrectomy, right adrenal gland nonvisualized. No recurrent disease in the r ight renal bed. No retroperitoneal adenopathy in this region. Left kidney is normal in appearance w ith no hydronephrosis, nephrolithiasis, or mass. Abdominal aorta and major visceral branches appear intact. No focal bowel pathology. Nonvisualized with no specific evidence of appendicitis or diverticulitis No abdominal or pelvic adenopathy. There is a right inguinal hernia which contains a portion of the urinary bladder. No focal bony lesion identified on scanning of the chest, abdomen, and pelvis. Metallic clips noted in the prostate. IMPRESSION: 7 millimeter mean diameter left fissural pulmonary nodule, indeterminate. Follow-up CT suggested in 6 months. No evidence of recurrent or metastatic renal carcinoma. RADIATION DOSE DELIVERED: 1,840.37mGy.cm Total DLP 1,840.37mGy.cm Total DLP RADIATION OPTIMIZATION: All CT scans at this facility use at least one of these dose optimization te chniques: automated exposure control; mA and/or kV adjustment per patient size (includes targeted exa ms where dose is matched to clinical indication); or iterative reconstruction.
== END 2020-11-11 03:49 ==
PROVIDERS: PCP Family Medicine; Visit Provider Urology
DX: Z85.528 Personal history of other malignant neoplasm of kidney (principal); Z90.5 Acquired absence of kidney; Z12.89 Encounter for screening for malignant neoplasm of other sites; R91.1 Solitary pulmonary nodule; D35.02 Benign neoplasm of left adrenal gland; K40.90 Unilateral inguinal hernia, without obstruction or gangrene, not specified as recurrent
CPT/HCPCS: 74177; 80048; 80053; 71260; J3490; Q9967

== ENCOUNTER → 2020-11-18 10:00 | Outpatient (BNVA) | payer MEDICARE, OTHER, SELFPAY | PROVIDERS: PCP Family Medicine; Referring Provider Family Medicine; Visit Provider Internal Medicine Cardiovascular Disease | DX: I25.10 Atherosclerotic heart disease of native coronary artery without angina pectoris (principal); N18.9 Chronic kidney disease, unspecified; Z90.5 Acquired absence of kidney; Z95.2 Presence of prosthetic heart valve; I12.9 Hypertensive chronic kidney disease with stage 1 through stage 4 chronic kidney disease, or unspecified chronic kidney disease; Z79.899 Other long term (current) drug therapy | CPT/HCPCS: 99214 ==

== ENCOUNTER 2020-11-22 03:49 | Outpatient (CLI) | payer MEDICARE, OTHER, SELFPAY ==
[2020-11-22 11:32] LABS: Iron 79 ug/dL (65-175)
[2020-11-22 11:44] LABS: Anion Gap 10.9 mmol/L (3-11); BUN 30 mg/dL (7-18); CO2 21.1 mmol/L (21.0-32.0); CREATININE 1.9 mg/dL (0.70-1.30); Calcium 8.7 mg/dL (8.5-10.1); Chloride 107 mmol/L (98-107); Estimated GFR 34.64 (mL/min/1.73m2); Ferritin 144 ng/mL (26-388); Glucose 123 mg/dL (74-106); Potassium 4.9 mmol/L (3.5-5.1); Sodium 139 mmol/L (136-145)
== END 2020-11-22 03:50 | disposition home or self-care (01) ==
LOC: LBO 03:50
PROVIDERS: PCP Family Medicine; Visit Provider Family Medicine
DX: E87.5 Hyperkalemia (principal); N17.8 Other acute kidney failure; N18.9 Chronic kidney disease, unspecified; D64.9 Anemia, unspecified
CPT/HCPCS: 36415; 80048; 82728; 83540

== ENCOUNTER 2021-01-10 03:48 | Outpatient (CLI) | payer MEDICARE, OTHER, SELFPAY ==
[2021-01-10 09:30] LABS: Anion Gap 9.8 mmol/L (3-11); BUN 24 mg/dL (7-18); CO2 24.2 mmol/L (21.0-32.0); CREATININE 1.9 mg/dL (0.70-1.30); Calcium 8.8 mg/dL (8.5-10.1); Chloride 106 mmol/L (98-107); Estimated GFR 34.64 (mL/min/1.73m2); Glucose 89 mg/dL (74-106); Potassium 4.7 mmol/L (3.5-5.1); Sodium 140 mmol/L (136-145)
[2021-01-11 16:53] LABS: PSA, Ultrasensitive 3.7 ng/mL (<= 6.5)
== END 2021-01-10 03:49 | disposition home or self-care (01) ==
LOC: LBO 03:48
PROVIDERS: Nurse Practitioner Family; Radiology Radiation Oncology; PCP Family Medicine; Visit Provider Family Medicine
DX: C61 Malignant neoplasm of prostate (principal); N18.9 Chronic kidney disease, unspecified
CPT/HCPCS: 36415; 80048; 84153

== ENCOUNTER → 2021-04-07 08:35 | Outpatient (BNVA) | payer MEDICARE, SELFPAY | PROVIDERS: PCP Family Medicine; Referring Provider Family Medicine | DX: M19.072 Primary osteoarthritis, left ankle and foot (principal) | CPT/HCPCS: 20610; J1030 ==

== ENCOUNTER 2021-05-02 08:40 | Outpatient (CLI) | payer MEDICARE, SELFPAY ==
[2021-05-02 10:17] LABS: Abs Immature Grans 0.07 10^3/uL (0.0-0.06); Absolute Basophil Count 0.02 10^3/uL (0.0-0.2); Absolute Eosinophil Count 0.35 10^3/uL (0.0-0.7); Absolute Lymphocyte Count 0.66 10^3/uL (1.2-3.4); Absolute Monocyte Count 0.54 10^3/uL (0.1-0.8); Absolute Neutrophil Count 4.35 10^3/uL (1.2-6.7); Basophils % 0.3; Eosinophils % 5.8; Immature Grans % 1.2; MCH 31.5 pg (27.0-33.0); MCHC 33.3 % (32.0-36.0); MCV 94.4 fL (80-95); MPV 9.5 fL (8.0-11.0); Neutrophils % 72.7; Nucleated RBC 0 %; Platelet Count 182 10^3/uL (130-400); RBC 4.13 10^6/uL (4.36-5.78); RDW 13.1 % (11.8-14.1); RDW-SD 45.7 fL; WBC 5.99 10^3/uL (4.4-10.8)
[2021-05-02 11:26] LABS: ALT 27 U/L (16-63); Alkaline Phosphatase 94 U/L (46-116); Anion Gap 9.2 mmol/L (3-11); BUN 27 mg/dL (7-18); Bilirubin, Total 0.3 mg/dL (0.2-1.0); CO2 26.8 mmol/L (21.0-32.0); CREATININE 1.8 mg/dL (0.70-1.30); Calcium 8.5 mg/dL (8.5-10.1); Chloride 107 mmol/L (98-107); Estimated GFR 36.77 (mL/min/1.73m2); Glucose 87 mg/dL (74-106); Potassium 4.5 mmol/L (3.5-5.1); Sodium 143 mmol/L (136-145); Total Protein 6.9 g/dL (6.4-8.2)
[2021-05-02 12:17] LABS: AST 12 U/L (15-37)
[2021-05-02 17:44] LABS: PSA, Screening 2.1 ng/mL (0.0-6.5)
[2021-05-04 13:06] LABS: Testosterone, Total 323 ng/dL (240-950)
== END 2021-05-02 08:41 | disposition home or self-care (01) ==
LOC: LBO 08:40
PROVIDERS: PCP Family Medicine; Visit Provider Family Medicine
DX: C61 Malignant neoplasm of prostate (principal); Z12.5 Encounter for screening for malignant neoplasm of prostate
CPT/HCPCS: 36415; 80053; 84153; 84403; 85025

== ENCOUNTER 2021-05-15 11:05 | Outpatient (CLI) | payer MEDICARE, SELFPAY ==
--- NOTE | 2021-05-15 10:30 | DI.RAD_ITS ---
Exam(s) XR KNEE RT 2V AP,LAT EXAM: XR KNEE RT 2V AP,LAT CLINICAL HISTORY: RIGHT KNEE PAIN. TECHNIQUE: 2D digital imaging was performed. COMPARISON: CR,XR XR KNEE LT 4V AP,LAT,RYAN,PAT from 12/03/2019 FINDINGS: Components of the right knee prosthesis stable. No fracture or loosening evident. IMPRESSION: DATA REPOSITORY: RADIATION DOSE DELIVERED:
== END 2021-05-15 11:06 | disposition home or self-care (01) ==
LOC: DIORS 11:05
PROVIDERS: PCP Family Medicine; Referring Provider Family Medicine; Visit Provider Student in an Organized Health Care Education/Training Program
DX: Z96.651 Presence of right artificial knee joint (principal); M25.561 Pain in right knee
CPT/HCPCS: 20610; 73560; J1030

== ENCOUNTER 2021-05-17 02:23 | Outpatient (CLI) | payer MEDICARE, SELFPAY ==
[2021-05-17 12:25] LABS: Source Nasal/Nares
[2021-05-17 15:11] LABS: COVID-19 PCR Negative (Negative)
== END 2021-05-17 02:24 | disposition home or self-care (01) ==
LOC: LBO 02:23
PROVIDERS: PCP Family Medicine; Visit Provider Ophthalmology
DX: Z20.822 Contact with and (suspected) exposure to COVID-19 (principal); Z01.818 Encounter for other preprocedural examination
CPT/HCPCS: 87635

== ENCOUNTER 2021-05-18 00:05 | Outpatient (CLI) | payer MEDICARE, SELFPAY ==
--- NOTE | 2021-05-18 | DI.CT_ITS ---
Exam(s) CT CHEST/ABD/PEL WO EXAM: CT CHEST/ABD/PEL WO CLINICAL HISTORY: RENAL CELL CA,C64.9,S/P NEPHRECTOMY, SURVEILLANCE. TECHNIQUE: Imaging Protocol: Axial computed tomography images with coronal and sagittal reformatted images were created and reviewed CONTRAST MATERIAL: Intravenous: none Oral: Yes COMPARISON: CT CT CHEST/ABD/PEL W from 11/11/2020 FINDINGS: CHEST: LUNGS: The previously described solitary fissure based 9 x 5 millimeter nodule in the left lung is un changed. Some platelike atelectasis in the lingular segment of the left lung is unchanged. There ar e no new ominous pulmonary nodules and there are no pleural effusions. No significant focal findings in the trachea and mainstem bronchi.. MEDIASTINUM: No obvious hilar nor mediastinal adenopathy. The right thyroid lobe is again noted be en larged and contains nodules. Left thyroid lobe exhibits normal size. CARDIAC: Sternotomy wires again noted. Heart size normal. No pericardial effusion. Coronary artery calcification. There appears to be a prosthetic aortic valve.Caliber of the thoracic aorta is withi n normal limits. OSSEOUS: No significant osseous lesions.. ABDOMEN: There is no ascites. Small hiatal hernia noted. LIVER: There are no obvious focal hepatic lesions evident of this noninfused study. GALLBLADDER/BILIARY: No obvious gallbladder pathology. CBD is not dilated. PANCREAS: No evidence of obvious pancreatic mass nor dilatation of the pancreatic duct. SPLEEN: Spleen is not enlarged. No obvious intrasplenic lesions. ADRENALS: Small fat containing nodule at the genu of the left adrenal gland is again noted, benign ap pearance. The solitary remaining left kidney appears unremarkable. KIDNEYS: Right kidney is again noted to be surgically absent. Right adrenal gland also appears to be surgically absent. There is no new abnormal tissue in the right renal fossa which is presently occu pied by large bowel loops. No new regional adenopathy ABDOMINAL AORTA: Abdominal aorta is not. Retroperitoneal para-aortic adenopathy. No adenopathy arou nd the aortic bifurcation nor along the iliac chains and there is no inguinal adenopathy. LYMPH NODES: There is no retroperitoneal nor para-aortic adenopathy. ABDOMINAL WALL/GI: No evidence of anterior abdominal hernia. Right inguinal hernia is again noted wh ich contains part of the right side of the urinary bladder, approximately unchanged or sys are. Charley juliana of the bladder appears unremarkable. No evidence of bowel obstruction. PELVIS: LYMPH NODES: There is no intrapelvic nor inguinal adenopathy. GI: No evidence of appendicitis.There is extensive sigmoid diverticulosis. No evidence of acute dive rticulitis. URINARY BLADDER: No calculi nor obvious masses evident REPRODUCTIVE: Seeds prostate gland are again noted. Prostate size upper normal. No obturator adenop athy. Seminal vesicles unremarkable. OSSEOUS: No significant osseous lesions. IMPRESSION: 1. Continued stable appearance of the solitary left sided fissure based pulmonary nodule. No new nod ules nor pleural effusions nor intrathoracic adenopathy. 2. Right kidney is again noted be surgically absent as is the right adrenal gland. No new abnormal t issue in this region nor new metastatic disease in the abdomen and pelvis. 3. Again noted is a right inguinal hernia which contains part of the urinary bladder, unchanged. Metallic clips are again noted in the prostate gland. RADIATION DOSE DELIVERED: 1,264.69mGy.cm Total DLP DATA REPOSITORY: All CT scans at this facility are submitted to the National Radiology Data Registry (NRDR) Dose Index Registry (DIR) with the [employer] (ACR). RADIATION OPTIMIZATION: All CT scans at this facility use at least one of these dose optimization te chniques: automated exposure control; mA and/or kV adjustment per patient size (includes targeted exa ms where dose is matched to clinical indication); or iterative reconstruction.
[2021-05-18 10:34] LABS: ALT 23 U/L (16-63); AST 16 U/L (15-37); Albumin 3.9 g/dL (3.4-5.0); Alkaline Phosphatase 91 U/L (46-116); Anion Gap 11.8 mmol/L (3-11); BUN 31 mg/dL (7-18); Bilirubin, Total 0.4 mg/dL (0.2-1.0); CO2 23.2 mmol/L (21.0-32.0); CREATININE 1.8 mg/dL (0.70-1.30); Calcium 8.5 mg/dL (8.5-10.1); Chloride 104 mmol/L (98-107); Estimated GFR 36.77 (mL/min/1.73m2); Glucose 109 mg/dL (74-106); Potassium 4.3 mmol/L (3.5-5.1); Sodium 139 mmol/L (136-145); Total Protein 7.1 g/dL (6.4-8.2)
[2021-05-18] MEDS: Breeza Beverage 473 ML BTL 946 ML PO (10:35)
[2021-05-18] MEDS: Omnipaque 350 MG/ML 50 ML BTL IJ (10:36)
== END 2021-05-18 00:25 ==
PROVIDERS: PCP Family Medicine; Visit Provider Urology
DX: I25.10 Atherosclerotic heart disease of native coronary artery without angina pectoris (principal); I10 Essential (primary) hypertension; Z95.1 Presence of aortocoronary bypass graft; Z95.2 Presence of prosthetic heart valve; C64.9 Malignant neoplasm of unspecified kidney, except renal pelvis
CPT/HCPCS: 71250; 80053; 99214; 74176; 99213; Q9967

== ENCOUNTER 2021-05-19 06:59 | Day surgery (SDC) | payer MEDICARE, SELFPAY ==
[2021-05-19 07:12] VITALS: BP 125/73; PULSE 70; RESP 16; TEMP 36.5; O2SAT 95
[2021-05-19] MEDS: Tropicam./Phenyleph. (1/2.5%) 5 ML BTL OD ×3 (07:29→07:39)
--- NOTE | 2021-05-19 07:30 | W.ANESPRE ---
General Info Date of Service Date Performed: 05/19/21 Height: 5 ft 7 in Weight: 90.5 kg Body Mass Index (BMI): 31.2 Surgical Procedure: Operation Date: 05/19/21 08:40 Proposed Procedures Side Surgeon p Cataract Extraction with IOL Implant Right Diogenes Marie MD Meds Allergies and Home Medications Allergies Allergy/AdvReac Type Severity Reaction Status Date / Time terbinafine Allergy Intermediate Verified 05/19/21 07:21 diclofenac AdvReac Intermediate Diarrhea, Verified 05/19/21 07:21 UPSET STOMACH Home Medication Medication Instructions Recorded cholecalciferol (vitamin D3) 2,000 units PO DAILY 06/20/16 glucosamine HCl 750 mg tablet 1,500 mg PO DAILY tab 07/11/18 sildenafil 100 mg tablet 50 - 100 mg PO DAILY PRN #10 tab 12/11/18 aspirin 81 mg tablet,delayed 81 mg PO DAILY 10/26/19 release latanoprost 0.005 % eye drops 1 drp OP QPM 10/26/19 lovastatin 20 mg tablet 20 mg PO DAILY #90 tab-cap 07/07/20 bupropion HCl 300 mg 24 hr tablet, 300 mg PO QAM #90 tab 08/18/20 extended release gabapentin 800 mg tablet 800 mg PO HS #90 tab-cap 10/21/20 acetaminophen 500 mg tablet 1,000 mg PO TID tab 11/18/20 cyanocobalamin (vitamin B-12) 1,000 mcg IM Q MONTH vial 11/18/20 1,000 mcg/mL injection solution oxybutynin chloride 10 mg 10 mg PO DAILY 11/24/20 tablet,extended release 24 hr tamsulosin 0.4 mg capsule 0.4 mg PO DAILY 11/24/20 bupropion HCl 150 mg 24 hr tablet, 150 mg PO QAM #90 tab 12/06/20 extended release citalopram 20 mg tablet 20 mg PO DAILY #90 tab 12/06/20 ferrous gluconate 240 mg (27 mg 480 mg PO DAILY #90 tab 12/23/20 iron) tablet syringe with needle 3 mL 21 gauge #15 ndl 01/25/21 x 1 boron citrate 3 mg tablet 3 mg PO DAILY tab 04/26/21 nitroglycerin 0.4 mg sublingual 0.4 mg SUBLINGUAL PRN #25 tab 04/26/21 tablet omeprazole magnesium 20 mg 20 mg PO DAILY #90 tab 04/28/21 tablet,delayed release pramipexole 0.125 mg tablet 0.125 mg PO HS #90 tab-cap 05/03/21 Current Visit Medications: Current Medications Generic Name Dose Route Start Last Admin Trade Name Freq PRN Reason Stop Dose Admin Acetaminophen 1,000 mg 05/19/21 06:00 Acetaminophen 500 Mg Tab PO Q4H PRN PRN Miscellaneous Medication 0 ml 05/19/21 06:00 Prednisolone 1%, Moxifloxacin 0.5%, Nepafenac 0.1% 5ml Btl OD DIRECTED [facility] Miscellaneous Medication 0 ml 05/19/21 06:00 05/19/21 07:29 Tropicam./Phenyleph. (1/2.5%) 5 Ml Btl OD 1 drp DIRECTED [facility] Administration Tetracaine HCl 0 ml 05/19/21 06:00 Tetracaine 0.5% 4 Ml Btl OD DIRECTED [facility] PFSH Active Problems Active Problems: Problem Status Onset Code Procedures Acute myocardial infarction I21.9 Anxiety F41.9 Atherosclerosis of [place] coronary artery I25.10 Benign prostatic hyperplasia 12/25/12 N40.0 Depressive disorder F32.9 Disorder of vitamin B12 07/12/13 E53.8 Essential hypertension I10 Gastroesophageal reflux disease K21.9 Hyperlipidemia E78.5 Obstructive sleep apnea syndrome G47.33 Sensorineural hearing loss, bilateral 18 H90.3 Primary osteoarthritis of right knee M17.11 History of intravascular stent placement Z95.828 Herpes zoster without complication B02.9 Heart murmur R01.1 Fatigue R53.83 Arthritis of left ankle M19.072 Generalized anxiety disorder F41.1 History of aortic valve replacement ~2017 Z95.2 POLST (Physician Orders for Life-Sustaining Treatment) Z78.9 Diarrhea R19.7 Elevated PSA, between 10 and less than 20 ng/ml R97.20 Acute kidney injury N17.9 Prostate cancer C61 Vitamin B12 deficiency E53.8 Acute hyperkalemia E87.5 Renal failure (ARF), acute on chronic N17.9, N18.9 Pulmonary nodule seen on imaging study R91.1 Anemia D64.9 CKD (chronic kidney disease) N18.9 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 Medical History Active Problem List (Updated 05/19/21 @ 07:37 by Hollis Tejeda CRNA) Procedures (Acute) Acute myocardial infarction (Acute) Anxiety (Acute) Atherosclerosis of [place] coronary artery (Acute) Benign prostatic hyperplasia (Acute 12/25/12) Depressive disorder (Acute) Disorder of vitamin B12 (Acute 07/12/13) Essential hypertension (Acute) Gastroesophageal reflux disease (Acute) Hyperlipidemia (Acute) Obstructive sleep apnea syndrome (Acute) Sensorineural hearing loss, bilateral (Acute 07/05/17) Primary osteoarthritis of right knee (Chronic) History of intravascular stent placement (Acute) Herpes zoster without complication (Acute) Heart murmur (Acute) Fatigue (Acute) Arthritis of left ankle (Chronic) Generalized anxiety disorder (Acute) History of aortic valve replacement (Acute ~2017) POLST (Physician Orders for Life-Sustaining Treatment) (Acute) Diarrhea (Acute) Elevated PSA, between 10 and less than 20 ng/ml (Acute) Acute kidney injury (Acute) Prostate cancer (Chronic) Vitamin B12 deficiency (Acute) Acute hyperkalemia (Acute) Renal failure (ARF), acute on chronic (Acute) Pulmonary nodule seen on imaging study (Acute) Anemia (Chronic) CKD (chronic kidney disease) (Chronic) Single functional kidney (Acute) History of total right knee replacement (Acute) Surgical History Surgical History (Updated 05/19/21 @ 07:37 by Hollis Tejead CRNA) Colonoscopy - MAC (06/25/16) Hx of CABG (~2017) 2017 patient had coronary artery bypass grafting with a MCMILLAN to the LAD Hx of tonsillectomy Stent placement pt. states never had stents Tobacco Smoking/Tobacco Use Status: Former Tobacco Use Passive smoking exposure: Yes Alcohol Alcohol Intake: current Alcohol intake frequency: a few times a month Alcohol type: beer Substance Use Substance use: Never Substance use type: does not use Counseling given: No Counseling provided: none Vital Signs and Lab Results Vital Signs Most Recent Vital Signs in EMR: Most Recent Vital Signs Temp Pulse Resp BP Pulse Ox 36.5 C 70 16 125/73 95 05/19/21 07:12 05/19/21 07:12 05/19/21 07:12 05/19/21 07:12 05/19/21 07:12 Lab Results Blood Type / Crossmatch: No Data to Display Complete Blood Count: White Blood Count 5.99 10^3/uL (4.4-10.8) 05/02/21 09:48 05/02/21 Red Blood Count 4.13 10^6/uL (4.36-5.78) L 05/02/21 09:48 05/02/21 Hemoglobin 13.0 g/dL (13.5-17.5) L 05/02/21 09:48 05/02/21 Hematocrit 39.0 % (40.0-50.0) L 05/02/21 09:48 05/02/21 Platelet Count 182 10^3/uL (130-400) 05/02/21 09:48 05/02/21 Complete Metabolic Panel: Sodium Level 139 mmol/L (136-145) 05/18/21 10:06 05/18/21 Potassium Level 4.3 mmol/L (3.5-5.1) 05/18/21 10:06 05/18/21 Chloride Level 104 mmol/L (98-107) 05/18/21 10:06 05/18/21 Carbon Dioxide Level 23.2 mmol/L (21.0-32.0) 05/18/21 10:06 05/18/21 Blood Urea Nitrogen 31 mg/dL (7-18) H 05/18/21 10:06 05/18/21 Creatinine 1.8 mg/dL (0.70-1.30) H 05/18/21 10:06 05/18/21 Estimated GFR/1.73 m2 36.77 (mL/min/1.73m2) 05/18/21 10:06 05/18/21 Calcium Level 8.5 mg/dL (8.5-10.1) 05/18/21 10:06 05/18/21 Albumin 3.9 g/dL (3.4-5.0) 05/18/21 10:06 05/18/21 Glucose Level 109 mg/dL (74-106) H 05/18/21 10:06 05/18/21 Liver Function Panel: Alanine Aminotransferase (ALT/SGPT) 23 U/L (16-63) 05/18/21 10:06 05/18/21 Aspartate Amino Transf (AST/SGOT) 16 U/L (15-37) 05/18/21 10:06 05/18/21 Coagulation Panel: No Data to Display Cardiac Panel: No Data to Display Arterial Blood Gas: No Data to Display Venous Blood Gas: No Data to Display Pancreas Panel: No Data to Display Thyroid Panel: No Data to Display Infectious Disease: Coronavirus (COVID-19)(PCR) Negative (Negative) 05/17/21 08:45 05/17/21 Coronavirus 2019 Source Nasal/Nares 05/17/21 08:45 05/17/21 Blood Cultures: No Data to Display Toxicology Panel: No Data to Display Imaging and Studies Imaging and Studies EKG Summary: DATE/TIME OF SERVICE: 11/08/20 1134 : 1945ERFORMING LOCATION: [place] APPROVED REPORT Exam: Resting ECG Reason for Exam: high potassium Patient Location: E HR:61 bpm ECG Measurements Heart Rate 61 AXIS VA 194 P 41 QRSd 90 QRS 81 QT 392 T-20 QTc 394 Conclusion Sinus rhythm...normal P axis, V-rate 60- 99 Stress Test Summary: Date of study: 07/02/2018 Impressions: Normal study after maximal exercise. Date of study: 03/14/2016 Ordering physician: Christopher Seo MD Impressions: - The stress electrocardiography portion appears to be a false positive. - Normal myocardial perfusion and contraction after maximal exercise. Echocardiogram Summary: Date of Exam: 11/08/20Sex: M Admission Date: 11/08/20 : 1945 Age: 75 Indications: Exertional SOB, AVR Bioprosthetic Other Information Study Quality: Adequate Conclusion Left Ventricle : The left ventricle is normal size. Left ventricular systolic function is mildly decreased. There is normal left ventricular wall thickness. There is normal LV segmental wall motion. LVEF is 50%. Right Ventricle : Right ventricle is mildly dilated. The right ventricular systolic function is normal. The RVSP is 29.4 mmHg. Atria : The left atrium size is normal. The right atrium size is normal. Aortic Valve : Bioprosthetic aortic valve is present. No aortic regurgitation is present. No hemodynamically significant valvular aortic stenosis. Mitral Valve : Mild mitral annular calcification. Mild mitral regurgitation. No evidence of mitral valve stenosis. Great Vessels : The aortic root is normal in size. The ascending aorta is normal in size. IVC is normal in size and collapses >50% with inspiration. Compared to echocardiogram from 11/12/2018, the aortic valve appears to be functioning well. The ejection fraction has gone from normal to mildly reduced with no significant regional wall motion abnormalities. Anesthesia Assessment and Plan Anesthesia History Personal History: No History of Anesthesia Complications Family History: No Family History of Anesthesia Complications Exercise Tolerance Exercise Tolerance: Metabolic Equivalents>4 Pertinent Negatives Pertinent Negatives: No Symptoms of GERD Cardiac & Pulmonary Exam Cardiac Exam: Normal S1/S2 Heart Sounds Pulmonary Exam: Clear Bilateral Breath Sounds Implantable Cardiac Device Does patient have a Pacemaker or an ICD?: No Airway Exam Known Difficult Airway: No Mallampati Class: 1 Mouth Opening: Normal (> 3cm) Thyromental Distance: Greater than 3 cm Neck Range of Motion: Full ROM Neck Circumference: Normal Teeth Condition: Normal Dentition ASA Classification ASA Score: ASA 3 Emergency Case?: No NPO Status NPO Status: NPO Clears >2 hours, Solids >8 hours Anesthesia Plan Resuscitation Status: Full Code Anesthesia Technique: MAC Anesthesia Airway Planned: Natural Airway Monitors Used: Standard Monitors
[2021-05-19 08:03] VITALS: BMI 31.2
[2021-05-19] MEDS: Tetracaine 0.5% 4 ML BTL OD (08:23)
[2021-05-19] MEDS: Lidocaine 2% Jelly 6 ML SYR (08:23)
[2021-05-19] MEDS: Povidone-Iodine Ophth 30 ML BTL (08:23)
[2021-05-19] MEDS: Balanced Salt Soln.-PLUS 500 ML BAG (08:32)
[2021-05-19] MEDS: Duovisc Viscoelastic System EACH 1 EACH (08:33)
--- NOTE | 2021-05-19 08:55 | W.PM.DSUDISC ---
Discharge Plan Disposition Patient Disposition: HOME Condition: Good Discharge Details Attending Provider: Diogenes Marie Primary Care Provider: Rafael Barragan Home Meds and New Rx's Prescriptions: No Action acetaminophen [Tylenol Extra Strength] 500 mg tablet 1,000 mg PO TID RF: 0 glucosamine HCl 750 mg tablet 1,500 mg PO DAILY RF: 0 (DME) BD Luer-Sofia Syringe 3 mL 21 gauge x 1 syringe 1 ea Miscellaneous monthly Qty: 15 RF: 3 oxybutynin chloride 10 mg tablet extended release 24hr 10 mg PO DAILY RF: 0 tamsulosin 0.4 mg capsule 0.4 mg PO DAILY RF: 0 aspirin 81 mg tablet,delayed release (DR/EC) 81 mg PO DAILY RF: 0 latanoprost 0.005 % drops 1 drp OP QPM RF: 0 cyanocobalamin (vitamin B-12) 1,000 mcg/mL solution 1,000 mcg IM Q MONTH RF: 0 boron citrate 3 mg tablet 3 mg PO DAILY RF: 0 nitroglycerin 0.4 mg tablet, sublingual 0.4 mg Sublingual PRN Qty: 25 RF: 0 sildenafil 100 mg tablet 50 - 100 mg PO DAILY PRN (Reason: sexual activity) Qty: 10 RF: 2 lovastatin 20 mg tablet 20 mg PO DAILY Qty: 90 RF: 4 bupropion HCl 300 mg tablet extended release 24 hr 300 mg PO QAM Qty: 90 RF: 4 gabapentin 800 mg tablet 800 mg PO HS Qty: 90 RF: 2 bupropion HCl 150 mg tablet extended release 24 hr 150 mg PO QAM Qty: 90 RF: 4 citalopram 20 mg tablet 20 mg PO DAILY Qty: 90 RF: 4 Hold Instructions: Home Medication placed on hold at Doctor's office ferrous gluconate 240 mg (27 mg iron) tablet 480 mg PO DAILY Qty: 90 RF: 2 omeprazole magnesium 20 mg tablet,delayed release (DR/EC) 20 mg PO DAILY Qty: 90 RF: 3 pramipexole 0.125 mg tablet 0.125 mg PO HS Qty: 90 RF: 3 cholecalciferol (vitamin D3) 1,000 UNITS tablet 2,000 units PO DAILY RF: 0 Discharge Instructions Stand Alone Forms: Post-op Topical Cataract, Press Ganey (DSU) Discharge Orders Discharge Orders: Discharge Order (Routine); Ordered 05/19/21 Ordered By: Diogenes Marie DS: Diagnosis Discharge Diagnosis (1) Nuclear sclerotic cataract of right eye: Status: Resolved
--- NOTE | 2021-05-19 08:56 | W.PM.OP ---
Date of service: 05/19/21 Time of Service: 08:56 Operative Note Operative Note DATE OF PROCEDURE: 05/19/21 PRE-OP DIAGNOSIS: Nuclear cataract right eye POST-OP DIAGNOSIS: same PROCEDURE: Cataract extraction using phacoemulsification with intraocular lens implant, right eye SURGEON: Diogenes Marie ANESTHESIA TYPE: Local By Surgeon and MAC Refer to Anesthesia Record ESTIMATED BLOOD LOSS: 0 PATHOLOGY: none sent COMPLICATIONS: None Patient was transported to: same day Patient's condition: stable Implants: [employer]hav[employer]/JEANETH Tecnis [id number] Indications: Progressive visual loss due to cataract, right eye Procedure Description: CATARACT SURGERY OPERATIVE REPORT PREOPERATIVE DIAGNOSIS: 1.Nuclear cataract, right eye POSTOPERATIVE DIAGNOSIS: Same OPERATION: 1. Cataract extraction using phacoemulsification with posterior chamber intraocular lens implant, right eye. IOL: IOL Ticketing Clerk/Model: [employer]hav[employer] / JEANETH Tecnis [id number] IOL Power: +23.0 diopters IOL Serial Number: [id number] Optic Diameter: 6.0mm Haptic/Overall Diameter: 13.0mm PHACO INFO: [employer] Vision System with OZil and Active Fluidics Cumulative Dispersed Energy (CDE): 5.22 seconds SURGEON: Diogenes Marie MD, JOSE ANESTHESIA: Monitored Anesthesia Care (MAC), with local sub-tenon's anesthetic infiltration COMPLICATIONS: None SPECIMENS: None INDICATIONS FOR PROCEDURE: The patient is a 76-year-old gentleman who has previously undergone cataract surgery in the left eye in 2004. 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 He has now developed asymptomatic cataract in the right eye and desires cataract surgery there and attempt to improve and maximize his vision. PROCEDURE: The correct surgical eye was identified and marked as the right eye and the pupil was dilated in the preoperative area using mydriatics and cycloplegics. The dilated pupil size was 6.0 mm. He elected to proceed without oral sedation. The patient was brought to the operating room where cardiopulmonary monitoring was instituted and surgical time-out was performed, confirming the correct operative eye and IOL power. Topical anesthesia was administered and ophthalmic povidone-iodine 5% was instilled into the conjunctival fornices. Lidocaine gel was applied to the cornea and the lucero-ocular area was prepped with Betadine 10% solution and draped in the usual sterile fashion for intraocular surgery, including an aperture drape. A Tegaderm transparent film dressing was cut in half and used to cover the lashes and lid margins. Care was taken to sequester the lashes and lid margins under the Tegaderm dressing. A lid speculum was placed between the lids of the operative eye and the Sarah-Rivera operating microscope was maneuvered into position. Maged scissors were then used to make a conjunctival buttonhole approximately 6mm posterior to the limbus in the inferonasal quadrant. Blunt dissection was carried out to expose bare sclera, and a blunt-tipped sub-tenon?s anesthesia cannula was introduced and passed posteriorly along the globe where non-preserved plain lidocaine was injected into posterior sub-Tenon?s space. A sideport knife was used to make a paracentesis port inferotemporally. Intraocular phenylephrine/lidocaine was injected into the anterior chamber. The anterior chamber was filled with viscoelastic. A 2.4mm keratome knife was used to create a half-thickness groove at the limbus and then to construct a three-plane near-clear corneal tunnel extending 2.0mm into clear cornea superiortemporally. A flap was raised on the anterior capsule and capsulorhexis forceps were used to complete a continuous curvilinear capsulorhexis of mm. Balanced salt solution was then used to perform cortical cleaving hydrodissection and nuclear hydrodelineation until the lens could be freely rotated within the capsular bag. The lens nucleus was then disassembled and removed within the capsular bag and iris plane using phacoemulsification. Residual cortical material was removed using the I/A handpiece. The posterior capsule was carefully polished to remove as much residual lens epithelial cells as safely possible. The capsular bag was then inflated and the anterior chamber deepened with viscoelastic. The lens implant described above was inserted into the capsular bag using the JEANETH [place] Injector. A Kuglen hook was used to dial the IOL into position. Residual viscoelastic was then removed first from posterior to the IOL, then from the anterior chamber using the I/A handpiece. The lens implant was noted to center nicely within the capsular bag. The incisions were stromally hydrated, and the anterior chamber was reformed using BSS. Then 0.5cc of moxifloxacin 1.0mg/ml were injected into the capsular bag and anterior chamber. The incisions were checked with a Weck spear and found to be secure. Several drops of ophthalmic povidone-iodine 5% were then applied to the eye followed by two drops of Imprimis combination prednisolone/moxifloxacin/nepafenac solution. The drapes were removed and a clear plastic protective eye shield was placed over the eye. The patient was then returned to Same Day Surgery in stable condition.
[2021-05-19 08:58] VITALS: BP 138/73; PULSE 66; RESP 18; TEMP 36.1; O2SAT 98
--- NOTE | 2021-05-19 09:08 | W.ANESPOSTOP ---
Postoperative Evaluation Date, Time and Location Date Performed: 05/19/21 Time Performed: 09:00 Patient Location: Day Surgery Unit Vital Signs Most Recent Imported Vital Signs: Most Recent Vital Signs Temp Pulse Resp BP Pulse Ox 36.1 C L 66 18 138/73 98 05/19/21 08:58 05/19/21 08:58 05/19/21 08:58 05/19/21 08:58 05/19/21 08:58 Pain Score Most Recent Pain Score: Most Recent Pain Score Pain Level 0 05/19/21 08:58 Assessment Mental Status: Awake (Alert & Oriented to Patient Baseline) Airway and Respiratory Function: Patent airway with normal (patient baseline) respiratory exam Cardiovascular Function: Hemodynamically Stable Hydration Status: Adequately Hydrated Nausea & Vomiting: No Nausea or Vomiting Pain: Pt. Denies Any Pain Peripheral Nerve Block: Patient did not receive a nerve block
== END 2021-05-19 09:13 | disposition home or self-care (01) ==
PROVIDERS: PCP Family Medicine; Visit Provider Ophthalmology
PROC: (CPT 66984; principal; 2021-05-19 08:30)
DX: H25.11 Age-related nuclear cataract, right eye (principal); I12.9 Hypertensive chronic kidney disease with stage 1 through stage 4 chronic kidney disease, or unspecified chronic kidney disease; N18.9 Chronic kidney disease, unspecified; G47.33 Obstructive sleep apnea (adult) (pediatric)
CPT/HCPCS: 66984; V2632

== ENCOUNTER 2021-07-14 04:23 | Outpatient (CLI) | payer MEDICARE, SELFPAY ==
[2021-07-14 08:30] LABS: Abs Immature Grans 0.06 10^3/uL (0.0-0.06); Absolute Basophil Count 0.02 10^3/uL (0.0-0.2); Absolute Eosinophil Count 0.28 10^3/uL (0.0-0.7); Absolute Lymphocyte Count 0.64 10^3/uL (1.2-3.4); Absolute Monocyte Count 0.56 10^3/uL (0.1-0.8); Absolute Neutrophil Count 4.26 10^3/uL (1.2-6.7); Basophils % 0.3; Eosinophils % 4.8; HCT 41.2 % (40.0-50.0); HGB 13.3 g/dL (13.5-17.5); MCH 30.5 pg (27.0-33.0); MCHC 32.3 % (32.0-36.0); MCV 94.5 fL (80-95); MPV 9.1 fL (8.0-11.0); Monocytes % 9.6; Neutrophils % 73.3; Nucleated RBC 0 %; Platelet Count 187 10^3/uL (130-400); RBC 4.36 10^6/uL (4.36-5.78); RDW 12.8 % (11.8-14.1); RDW-SD 44.4 fL; WBC 5.82 10^3/uL (4.4-10.8)
[2021-07-14 09:43] LABS: ALT 24 U/L (16-63); AST 11 U/L (15-37); Albumin 3.9 g/dL (3.4-5.0); Alkaline Phosphatase 94 U/L (46-116); Anion Gap 9.5 mmol/L (3-11); BUN 26 mg/dL (7-18); Bilirubin, Total 0.3 mg/dL (0.2-1.0); CO2 24.5 mmol/L (21.0-32.0); CREATININE 1.9 mg/dL (0.70-1.30); Calcium 8.5 mg/dL (8.5-10.1); Chloride 106 mmol/L (98-107); Estimated GFR 34.55 (mL/min/1.73m2); Glucose 97 mg/dL (74-106); Potassium 4.4 mmol/L (3.5-5.1); Sodium 140 mmol/L (136-145); Total Protein 6.9 g/dL (6.4-8.2)
[2021-07-15 14:01] LABS: PSA, Ultrasensitive 1.7 ng/mL (<= 6.5)
[2021-07-17 16:07] LABS: Testosterone, Total 333 ng/dL (240-950)
== END 2021-07-14 04:24 | disposition home or self-care (01) ==
PROVIDERS: PCP Family Medicine; Visit Provider Nurse Practitioner Family
DX: C61 Malignant neoplasm of prostate (principal)
CPT/HCPCS: 36415; 80053; 84153; 84403; 85025

== ENCOUNTER 2021-09-14 01:24 | Outpatient (CLI) | payer MEDICARE, SELFPAY ==
--- NOTE | 2021-09-14 06:00 | ETT_ITS ---
APPROVED REPORT Exam: Exercise Treadmill Patient Location: Out-Patient Room/Bed: Stress Nurse: Leena De Jesus RN Ordering Provider:BRIANNA PACE, Contact Number: [phone] BMI: 33.35 Baseline Rhythm: Sinus Rhythm Comment: T waves negative leads III, aVF, V5, V6 Medical History Medical History: Hypertension, hyperlipidemia, obesity, CKD stage 3, prostate cancer, gerd, anxiety Cardiac Medications: Lovastatin, aspirin, nitroglycerin SL, sildenafil, tadalafil, gabapentin Allergies: Terbinafine, diclofenac Cardiac Risk Factors: Hypertension, hyperlipidemia, obesity, smoker (former), CVD, family hx Previous Cardiac Procedures: Aortic valve replacement, CABG x3 (2017) Pretest Chest Pain Characteristics: None Exercise History: Physically active Physical Disabilities: None Lung Sounds: Clear to auscultation Heart Sounds: Murmur Stress Test Details Test: Exercise stress testing was performed using a Sam protocol. Rest Stress HR Resting HR Supine: 84 bpm Max Heart Rate (APMHR): 143 bpm Resting HR Standin bpm Target HR (85% APMHR): 121 bpm Max HR Achieved: 148 bpm % of APMHR: 103 Recovery HR: 98 bpm HR response to stress: Normal HR response to stress BP Resting BP Supine: 146/84 mmHg Resting BP Standin/72 mmHg Max BP: 210/72 mmHg Recovery BP: 154/74 mmHg BP response to stress: Abnormal hypertensive response to stress. ECG Resting ECG: Sinus Rhythm Ectopy: None Comment: T waves negative leads III, aVF, V5, V6 Stress ECG: Sinus Tachycardia ST Change: Horizontal ST depression Lead(s): II Stage: [address] Deviation: 1.5 mm Arrhythmia: Rare PVC Recovery ECG: Sinus Rhythm Recovery ST Change: No significant ST segment changes noted Recovery Arrhythmia: Rare PAC, rare PVCs Clinical Reason for Termination: Stopped by RN due to pt fatigue and ankle pain Stress Symptoms: General Fatigue Exercise duration: 8 min14 sec Highest Stage Reached: Stage 3: 3.4 mph at 14% grade. Exercise capacity: 10.16 METs Wheeler Treadmill Score: 7.2 Rate Pressure Product: 35162 Stress ECG Conclusion 1. Resting electrocardiogram showed left ventricular hypertrophy with repolarization abnormalities 2. Patient exercised on the Sam protocol and completed a workload of 10.16 METS, limited by fatigue 3. Normal heart rate response to exercise. Patient achieved greater than 100% of predicted heart rat e for age. Mildly hypertensive blood pressure response to exercise 4. The electrocardiographic portion of the test could not be interpreted due to resting ST-T abnormal ities 5. There were no significant dysrhythmias Wheeler Treadmill Score is 7.2 which is Low risk. Stress Test Summary STAGE Time (mins) Speed (mph) Grade (%) HR BP SYMPTOMS METS Supine 84 146/84 Standing 83 124/72 SpO2 95% 1 3 1.7 10 119 136/70 SpO2 94% 4.6 2 6 2.5 12 132 158/70 SpO2 94% 7 3 9 3.4 14 148 SpO2 94% 10.2 1 min recovery 130 176/68 SpO2 95% 3 min recovery 105 210/72 SpO2 96% 6 min recovery 98 154/74 SpO2 95% Exercise stopped by RN due to pt fatigue and reported ankle pain.
== END 2021-09-14 01:44 ==
PROVIDERS: PCP Family Medicine; Visit Provider Family Medicine
DX: I25.10 Atherosclerotic heart disease of native coronary artery without angina pectoris (principal)
CPT/HCPCS: 93016; 93018; 93017

== ENCOUNTER → 2021-10-06 09:01 | Outpatient (BNVA) | payer MEDICARE, SELFPAY | PROVIDERS: PCP Family Medicine; Referring Provider Family Medicine | DX: M19.072 Primary osteoarthritis, left ankle and foot (principal) | CPT/HCPCS: 20605; 99212; J1040 ==

== ENCOUNTER 2021-10-24 01:52 | Outpatient (CLI) | payer MEDICARE, SELFPAY ==
[2021-10-24 07:59] LABS: HCT 38.7 % (40.0-50.0); HGB 12.4 g/dL (13.5-17.5); MCV 94 fL (80-95); MPV 9.4 fL (8.0-11.0); Platelet Count 153 10^3/uL (130-400); RBC 4.13 10^6/uL (4.36-5.78); RDW-SD 44.9 fL; WBC 5.26 10^3/uL (4.4-10.8)
[2021-10-24 10:10] LABS: ALT 31 U/L (16-63); AST 17 U/L (15-37); Albumin 3.9 g/dL (3.4-5.0); Alkaline Phosphatase 93 U/L (46-116); Anion Gap 8.9 mmol/L (3-11); BUN 26 mg/dL (7-18); Bilirubin, Total 0.6 mg/dL (0.2-1.0); CO2 24.1 mmol/L (21.0-32.0); CREATININE 1.8 mg/dL (0.70-1.30); Calcium 8.4 mg/dL (8.5-10.1); Calculated LDL 87 mg/dL (<100); Chloride 108 mmol/L (98-107); Cholesterol 172 mg/dL (<200); Estimated GFR 36.77 (mL/min/1.73m2); Ferritin 214 ng/mL (26-388); Glucose 99 mg/dL (74-106); HDL Cholesterol 40 mg/dL (40-60); Potassium 4.6 mmol/L (3.5-5.1); Sodium 141 mmol/L (136-145); Total Protein 6.8 g/dL (6.4-8.2); Triglyceride 226 mg/dL (<150); Vitamin B12 1182 pg/mL (193-986)
[2021-10-24 20:24] LABS: PSA, Diagnostic 1.2 ng/mL (<=6.5)
[2021-10-24 23:12] LABS: Iron 80 ug/dL (65-175); Total Iron Binding Capacity 241 ug/dL (250-450); Transferrin Sat 33 % (20-55)
== END 2021-10-24 01:53 | disposition home or self-care (01) ==
LOC: LBO 01:52
PROVIDERS: PCP Family Medicine; Visit Provider Family Medicine
DX: C61 Malignant neoplasm of prostate (principal); E53.8 Deficiency of other specified B group vitamins; E78.5 Hyperlipidemia, unspecified; I25.10 Atherosclerotic heart disease of native coronary artery without angina pectoris; D64.9 Anemia, unspecified
CPT/HCPCS: 36415; 80053; 80061; 85027; 82607; 82728; 83540; 83550; 84153

== ENCOUNTER → 2021-11-16 13:53 | Outpatient (BNVA) | payer MEDICARE, SELFPAY | PROVIDERS: PCP Family Medicine; Referring Provider Family Medicine; Visit Provider Internal Medicine Cardiovascular Disease | DX: I25.10 Atherosclerotic heart disease of native coronary artery without angina pectoris (principal); I10 Essential (primary) hypertension; Z95.2 Presence of prosthetic heart valve | CPT/HCPCS: 99214; 99213 ==

== ENCOUNTER → 2021-11-27 01:59 | Outpatient (CLI) | payer MEDICARE, SELFPAY ==
--- NOTE | 2021-11-27 | DI.CT_ITS ---
Exam(s) CT CHEST/ABD/PEL WO EXAM: CT CHEST/ABD/PEL WO CLINICAL HISTORY: RENAL CELL CA, C64.9. TECHNIQUE: Imaging Protocol: Axial computed tomography images with coronal and sagittal reformatted images were created and reviewed CONTRAST MATERIAL: Intravenous: Not given due to global contrast shortage. Oral: yes: 900 mL Readi-Cat COMPARISON: CT CT CHEST/ABD/PEL WO from 05/18/2021 FINDINGS: CHEST: Tracheobronchial tree: Patent where visualized. Mediastinum and Mattie: No dominant adenopathy or fluid collection. Pulmonary parenchyma: Lingular scarring. No change in smoothly marginated nodule at the left greater fissure. No new pulmonary nodules. No infiltrates. Pleura: No effusion or pneumothorax. Lymph nodes: Within normal limits. Aorta: Thoracic portion non-dilated. Heart: Normal size. Prosthetic aortic valve. Coronary artery calcifications. Bones: Sternal wires.. Old right posterior rib fracture. Degenerative disc changes. Stable mild co mpression fractures of T2 and T4. No lytic or blastic lesions. Small hiatal hernia. ABDOMEN: Liver: Normal density. No measurable mass. Gallbladder and biliary tract: No radiodense calculus or dilation. Pancreas: Normal density, no abnormal calcifications or inflammatory process. Spleen: Normal. Kidneys: Status post right nephrectomy. Normal size, contour and axis. No radiodense stones or obstr uctive uropathy. No masses seen. Adrenal glands: No masses seen. Aorta: Abdominal portion non-dilated. Lymph nodes: Within normal limits. Soft tissues: Unremarkable. PELVIS: Bladder: Portion urinary bladder extends into right inguinal hernia, stable. , stable mild wall thic kening. Bowel: Diverticulosis lower descending and sigmoid colon. No diverticulitis. No obstruction or jamaal l wall thickening. Peritoneal cavity: No ascites, collection or mesenteric inflammatory response. Bones: Degenerative changes, unremarkable for age.. Reproductive organs: Metallic seeds in prostate.. IMPRESSION: Stable 9 x 5 millimeter nodule adjacent to the left greater fissure. No new nodules. No evidence of metastatic disease in the abdomen or pelvis. No recurrent renal mass. RADIATION DOSE DELIVERED: 1,561.52mGy.cm Total DLP DATA REPOSITORY: All CT scans at this facility are submitted to the National Radiology Data Registry (NRDR) Dose Index Registry (DIR) with the [employer] (ACR). RADIATION OPTIMIZATION: All CT scans at this facility use at least one of these dose optimization te chniques: automated exposure control; mA and/or kV adjustment per patient size (includes targeted exa ms where dose is matched to clinical indication); or iterative reconstruction.
[2021-11-27] MEDS: Barium Sulfate 2% W/V-Berry Smoothie 450 ML BTL PO (08:38)
== END ==
PROVIDERS: PCP Family Medicine; Visit Provider Urology
DX: C64.1 Malignant neoplasm of right kidney, except renal pelvis (principal); Z95.2 Presence of prosthetic heart valve; K44.9 Diaphragmatic hernia without obstruction or gangrene; Z90.5 Acquired absence of kidney; R91.1 Solitary pulmonary nodule
CPT/HCPCS: 71250; 74176

== ENCOUNTER → 2022-01-05 01:30 | Outpatient (CLI) | payer MEDICARE, SELFPAY ==
--- NOTE | 2022-01-05 14:25 | DI.CT_ITS ---
Exam(s) CT LOWER EXTREMITY LT WO EXAM: CT LOWER EXTREMITY LT WO CLINICAL HISTORY: CHRONIC PAIN LT ANKLE,M25.572,OA LT ANKLE,M19.072,PRESURGICAL FOR GUIDE. TECHNIQUE: Imaging Protocol: Axial computed tomography images with coronal and sagittal reformatted images were created and reviewed. CONTRAST MATERIAL: Intravenous: Omnipaque 350 Contrast volume:structured data in ml Contrast route:IV - COMPARISON: DX XR ANKLE MIN 3 VIEWS LEFT (GENERIC) from 11/22/2021 FINDINGS: There are severe degenerative changes of the tibiotalar joint with obliteration of the joint space. There is prominent spurring at the distal tibia. There is also spurring at the adjacent aspect of th e talus. There is also spurring at the malleoli. Small multiple small bony densities are noted bene ath both malleoli. Milder degenerative changes are are seen elsewhere. IMPRESSION: End-stage degenerative changes of the ankle. RADIATION DOSE DELIVERED: 224.1mGy.cm Total DLP DATA REPOSITORY: All CT scans at this facility are submitted to the National Radiology Data Registry (NRDR) Dose Index Registry (DIR) with the [employer] (ACR). RADIATION OPTIMIZATION: All CT scans at this facility use at least one of these dose optimization te chniques: automated exposure control; mA and/or kV adjustment per patient size (includes targeted exa ms where dose is matched to clinical indication); or iterative reconstruction.
== END ==
PROVIDERS: PCP Family Medicine; Visit Provider Orthopaedic Surgery
DX: M25.572 Pain in left ankle and joints of left foot (principal); G89.29 Other chronic pain; M19.072 Primary osteoarthritis, left ankle and foot
CPT/HCPCS: 73700

== ENCOUNTER 2022-01-19 01:55 | Outpatient (CLI) | payer MEDICARE, SELFPAY ==
[2022-01-19 16:36] LABS: Abs Immature Grans 0.06 10^3/uL (0.0-0.06); Absolute Basophil Count 0.03 10^3/uL (0.0-0.2); Absolute Eosinophil Count 0.35 10^3/uL (0.0-0.7); Absolute Monocyte Count 0.49 10^3/uL (0.1-0.8); Absolute Neutrophil Count 4.98 10^3/uL (1.2-6.7); Basophils % 0.4; Eosinophils % 5.1; HCT 41.1 % (40.0-50.0); HGB 13.7 g/dL (13.5-17.5); Immature Grans % 0.9; Lymphocytes % 13.2; MCH 30.8 pg (27.0-33.0); MCHC 33.3 % (32.0-36.0); MCV 92 fL (80-95); MPV 9.3 fL (8.0-11.0); Monocytes % 7.2; Neutrophils % 73.2; Platelet Count 181 10^3/uL (130-400); RBC 4.45 10^6/uL (4.36-5.78); RDW 12.7 % (11.8-14.1); RDW-SD 43.2 fL; WBC 6.81 10^3/uL (4.4-10.8)
[2022-01-19 17:03] LABS: ALT 27 U/L (16-63); AST 13 U/L (15-37); Albumin 4.3 g/dL (3.4-5.0); Alkaline Phosphatase 90 U/L (46-116); Anion Gap 5.3 mmol/L (3-11); BUN 26 mg/dL (7-18); Bilirubin, Total 0.3 mg/dL (0.2-1.0); CO2 24.7 mmol/L (21.0-32.0); CREATININE 1.9 mg/dL (0.70-1.30); Calcium 8.7 mg/dL (8.5-10.1); Chloride 103 mmol/L (98-107); Estimated GFR 34.55 (mL/min/1.73m2); Glucose 84 mg/dL (74-106); Potassium 3.8 mmol/L (3.5-5.1); Sodium 133 mmol/L (136-145); Total Protein 7.7 g/dL (6.4-8.2)
[2022-01-23 18:54] LABS: PSA, Ultrasensitive 0.88 ng/mL (<= 6.5)
[2022-01-25 08:40] LABS: Testosterone, Total 289 ng/dL (240-950)
== END 2022-01-19 01:56 | disposition home or self-care (01) ==
PROVIDERS: PCP Family Medicine; Visit Provider Nurse Practitioner Family
DX: C61 Malignant neoplasm of prostate (principal)
CPT/HCPCS: 36415; 80053; 84153; 84403; 85025

== ENCOUNTER → 2022-01-24 09:06 | Outpatient (BNVA) | payer MEDICARE, SELFPAY | PROVIDERS: PCP Family Medicine; Referring Provider Family Medicine; Visit Provider Physician Assistant | DX: M19.072 Primary osteoarthritis, left ankle and foot (principal) | CPT/HCPCS: 20605; J1040 ==

== ENCOUNTER 2022-06-15 00:29 | Outpatient (CLI) | payer MEDICARE, SELFPAY ==
--- NOTE | 2022-06-15 | DI.CT_ITS ---
Exam(s) CT CHEST/ABD/PEL W EXAM: CT CHEST/ABD/PEL W CLINICAL HISTORY: F/U RENAL CELL CA,C64.9,S/P RAD NEPHRECTOMY. TECHNIQUE: Imaging Protocol: Axial computed tomography images with coronal and sagittal reformatted images were created and reviewed CONTRAST MATERIAL: Intravenous: Omnipaque 350 Contrast volume:100 ml Oral: yes COMPARISON: CT CT CHEST/ABD/PEL WO from 11/27/2021 FINDINGS: CHEST: Tracheobronchial tree: Patent where visualized. Mediastinum and Mattie: No dominant adenopathy or fluid collection. Small hiatal hernia. Pulmonary parenchyma: Mild dependent changes. No change nodule at left major fissure. No new nodule s. No consolidation or dominant measurable mass. Pleura: No effusion or pneumothorax. Lymph nodes: Within normal limits. Aorta: Thoracic portion non-dilated. Heart: Mildly dilated left atrium and left ventricle.. Aortic valve prosthesis. Coronary artery evelyn cifications. Bones: Sternal wires. No lytic or blastic lesions. Stable mild compression fractures of T2 and T4. ABDOMEN: Liver: Normal density. No measurable mass. Gallbladder and biliary tract: No radiodense calculus or dilation. Pancreas: Normal density, no abnormal calcifications or inflammatory process. Spleen: Normal. Kidneys: Status post right nephrectomy. No recurrence mass. Left kidney normal size, contour and ax is. No radiodense stones or obstructive uropathy. No masses seen. Adrenal glands: Status post right adrenalectomy. No masses seen. Aorta: Abdominal portion non-dilated. Mild atherosclerotic changes. Lymph nodes: Within normal limits. Soft tissues: Right inguinal hernia containing a small portion of the urinary bladder, unchanged.. PELVIS: Bladder: Symmetric distention, no gross wall thickening. Bowel: No obstruction or bowel wall thickening. Redundant sigmoid with severe diverticulosis. Peritoneal cavity: No ascites, collection or mesenteric inflammatory response. Bones: Degenerative changes. No lytic or blastic lesions. No compression fractures. Reproductive organs: Radiotherapy seeds in prostate. Prostate mildly enlarged. IMPRESSION: S/p right nephrectomy. No evidence of recurrence mass, adenopathy or metastatic disease. RADIATION DOSE DELIVERED: 1019.96 mGy.cm Total DLP DATA REPOSITORY: All CT scans at this facility are submitted to the National Radiology Data Registry (NRDR) Dose Index Registry (DIR) with the [employer] (ACR). RADIATION OPTIMIZATION: All CT scans at this facility use at least one of these dose optimization te chniques: automated exposure control; mA and/or kV adjustment per patient size (includes targeted exa ms where dose is matched to clinical indication); or iterative reconstruction.
[2022-06-15] MEDS: Barium Sulfate 2% W/V-Berry Smoothie 450 ML BTL PO (09:04)
[2022-06-15 09:09] LABS: CREATININE 1.8 mg/dL (0.70-1.30); Estimated GFR 38.05 (mL/min/1.73m2)
[2022-06-15] MEDS: Omnipaque 350 MG/ML 100 ML BTL IJ (11:30)
== END 2022-06-15 00:49 ==
LOC: DI 00:29
PROVIDERS: PCP Family Medicine; Visit Provider Urology
DX: Z01.812 Encounter for preprocedural laboratory examination (principal); C64.1 Malignant neoplasm of right kidney, except renal pelvis; Z12.89 Encounter for screening for malignant neoplasm of other sites; Z95.2 Presence of prosthetic heart valve; Z90.5 Acquired absence of kidney; N40.0 Benign prostatic hyperplasia without lower urinary tract symptoms
CPT/HCPCS: 74177; 71260; 82565; J3490

== ENCOUNTER 2022-07-25 04:06 | Outpatient (CLI) | payer MEDICARE, SELFPAY ==
[2022-07-25 10:39] LABS: Abs Immature Grans 0.08 10^3/uL (0.0-0.06); Absolute Basophil Count 0.02 10^3/uL (0.0-0.2); Absolute Eosinophil Count 0.27 10^3/uL (0.0-0.7); Absolute Lymphocyte Count 0.81 10^3/uL (1.2-3.4); Absolute Monocyte Count 0.54 10^3/uL (0.1-0.8); Absolute Neutrophil Count 4.71 10^3/uL (1.2-6.7); Basophils % 0.3; Eosinophils % 4.2; HCT 38.7 % (40.0-50.0); HGB 12.9 g/dL (13.5-17.5); Immature Grans % 1.2; Lymphocytes % 12.6; MCH 31.1 pg (27.0-33.0); MCHC 33.3 % (32.0-36.0); MCV 93 fL (80-95); MPV 9.1 fL (8.0-11.0); Monocytes % 8.4; Neutrophils % 73.3; Platelet Count 169 10^3/uL (130-400); RBC 4.15 10^6/uL (4.36-5.78); RDW 13.1 % (11.8-14.1); RDW-SD 44.6 fL; WBC 6.43 10^3/uL (4.4-10.8)
[2022-07-25 10:54] LABS: ALT 21 U/L (16-63); AST 18 U/L (15-37); Alkaline Phosphatase 109 U/L (46-116); BUN 18 mg/dL (7-18); Bilirubin, Total 0.4 mg/dL (0.2-1.0); CREATININE 1.8 mg/dL (0.70-1.30); Calcium 8.6 mg/dL (8.5-10.1); Chloride 107 mmol/L (98-107); Estimated GFR 38.05 (mL/min/1.73m2); Glucose 105 mg/dL (74-106); Potassium 4.5 mmol/L (3.5-5.1); Sodium 140 mmol/L (136-145); Total Protein 7.4 g/dL (6.4-8.2)
[2022-07-26 19:50] LABS: PSA, Ultrasensitive 0.51 ng/mL (<= 6.5)
[2022-07-30 23:55] LABS: Testosterone, Total 305 ng/dL (240-950)
== END 2022-07-25 04:07 | disposition home or self-care (01) ==
LOC: LBO 04:06
PROVIDERS: PCP Family Medicine; Visit Provider Nurse Practitioner Family
DX: C61 Malignant neoplasm of prostate (principal)
CPT/HCPCS: 36415; 80053; 84153; 84403; 85025

== ENCOUNTER 2022-11-13 08:05 | Outpatient (CLI) | payer MEDICARE, SELFPAY | END 2022-11-13 08:06 | disposition home or self-care (01) | LOC: DI.CARD 08:06 | PROVIDERS: PCP Family Medicine; Visit Provider Internal Medicine Cardiovascular Disease | CPT/HCPCS: 93010 ==

== ENCOUNTER 2022-11-20 08:05 | Outpatient (CLI) | payer MEDICARE, SELFPAY ==
--- NOTE | 2022-11-20 08:00 | RT.EKG_ITS ---
APPROVED REPORT Exam: Resting ECG Reason for Exam: CAD Patient Location: O HR:91 bpm ECG Measurements Heart Rate 91 AXIS CO 204 P 45 QRSd 98 QRS 80 QT 361 T -39 QTc 445 Conclusion Sinus rhythm...normal P axis, V-rate 50- 99 Nonspecific T abnormalities, inferior leads...T <-0.10mV, II III aVF
== END 2022-11-20 08:06 | disposition home or self-care (01) ==
LOC: DI.CARD 08:06
PROVIDERS: PCP Family Medicine; Visit Provider Internal Medicine Cardiovascular Disease
DX: I25.10 Atherosclerotic heart disease of native coronary artery without angina pectoris (principal)
CPT/HCPCS: 93010

== ENCOUNTER → 2022-11-20 13:59 | Outpatient (BNVA) | payer MEDICARE, SELFPAY | PROVIDERS: PCP Family Medicine; Referring Provider Family Medicine; Visit Provider Internal Medicine Cardiovascular Disease | DX: I10 Essential (primary) hypertension (principal); Z95.2 Presence of prosthetic heart valve; I25.10 Atherosclerotic heart disease of native coronary artery without angina pectoris | CPT/HCPCS: 99214 ==

== ENCOUNTER 2023-01-07 04:43 | Outpatient (CLI) | payer MEDICARE, SELFPAY ==
[2023-01-07 17:04] LABS: BUN 21 mg/dL (7-18); CREATININE 1.8 mg/dL (0.70-1.30); Calcium 8.8 mg/dL (8.5-10.1); Chloride 107 mmol/L (98-107); Estimated GFR 38.05 (mL/min/1.73m2); Glucose 92 mg/dL (74-106); Potassium 4.6 mmol/L (3.5-5.1); Sodium 141 mmol/L (136-145)
== END 2023-01-07 04:44 | disposition home or self-care (01) ==
LOC: LBO 04:43
PROVIDERS: PCP Family Medicine; Visit Provider Internal Medicine Nephrology
DX: N18.32 Chronic kidney disease, stage 3b (principal)
CPT/HCPCS: 36415; 80048

== ENCOUNTER 2023-03-11 02:18 | Outpatient (CLI) | payer MEDICARE, SELFPAY ==
[2023-03-13 10:57] LABS: PSA, Ultrasensitive 0.35 ng/mL (<= 6.5)
[2023-03-14 18:37] LABS: Testosterone, Total 320 ng/dL (240-950)
== END 2023-03-11 02:19 | disposition home or self-care (01) ==
LOC: LBO 02:18
PROVIDERS: PCP Family Medicine; Visit Provider Nurse Practitioner Family
DX: C61 Malignant neoplasm of prostate (principal)
CPT/HCPCS: 36415; 84153; 84403

== ENCOUNTER → 2023-07-02 02:50 | Outpatient (CLI) | payer MEDICARE, SELFPAY ==
[2023-07-02 08:50] LABS: CREATININE 1.8 mg/dL (0.70-1.30); Estimated GFR 37.82 (mL/min/1.73m2)
[2023-07-02] MEDS: Barium Sulfate 2% W/V-Creamy Vanilla Smoothie 450 ML BTL 900 ML PO (09:21)
[2023-07-02] MEDS: Normal Saline - Diluent 50 ML VIAL IJ (10:26)
[2023-07-02] MEDS: Omnipaque 350 MG/ML 500 ML BTL-Imaging package 100 ML IJ (10:27)
--- NOTE | 2023-07-02 10:35 | DI.CT_ITS ---
Exam(s) CT CHEST/ABD/PEL W EXAM: CT CHEST/ABD/PEL W CLINICAL HISTORY: F/U RENAL CELL CA,C64.9. TECHNIQUE: Imaging Protocol: Axial computed tomography images with coronal and sagittal reformatted images were created and reviewed CONTRAST MATERIAL: Intravenous: Omnipaque 350 Contrast volume:100 ml Oral: Yes. Oral contrast was also administered for bowel opacification. COMPARISON: CT CT CHEST/ABD/PEL W from 06/15/2022 FINDINGS: CHEST: LUNGS: There are no metastatic appearing nodules in either lung field and there are no pleural effusi ons. No confluent infiltrates. There is platelike atelectasis in the superior lingular segment of t he left lung. There are no significant focal findings in the trachea and mainstem bronchi. MEDIASTINUM: There is no hilar nor mediastinal adenopathy. Thyroid lobe appears unremarkable. Right thyroid lobe contains multiple nodules but unchanged from CT scan of 06/15/2022. CARDIAC: There are sternotomy wires again noted. Heart size is normal. No pericardial effusion. Ao rtic valve prosthesis again noted. Diameter of the thoracic aorta is normal. There is no dissection . OSSEOUS: No osseous lesions. Mild loss of height of superior endplates of T3 and T5 unchanged.There are no new compression fractures.. ABDOMEN: There is no ascites. No new mesenteric masses. LIVER: There are no focal hepatic lesions nor dilatation of intrahepatic ducts. GALLBLADDER/BILIARY: Difficult to assess accurately because of respiratory motion artifact but there are no radiopaque calculi evident nor obvious gallbladder wall edema. CBD is not dilated. PANCREAS: Motion artifact but no obvious masses, parenchymal calcifications, nor dilatation of the pa ncreatic duct. SPLEEN: Spleen is not enlarged. There are no intrasplenic lesions. Splenic and portal veins are uriarte nt. ADRENALS: There is a fat containing nodule again noted in the left adrenal gland measuring 2 x 1.4 cm , unchanged and consistent with myelolipoma. The opposite-right adrenal gland is again noted be surg ically absent. KIDNEYS: Left kidney unremarkable. The right kidney is again noted be surgically absent. No evidenc e of mass nor fluid collection in the right renal fossa.. There is no new regional lymphadenopathy. ABDOMINAL AORTA: No aneurysm LYMPH NODES: There is no retroperitoneal nor paraaortic adenopathy. ABDOMINAL WALL: No evidence of anterior abdominal hernia but there is a prominent right-sided inguina l hernia again noted which measures 7 cm cephalocaudal by 5 cm wide and which contains part of the an terior right side of the urinary bladder. The bladder wall at this level is thickened, more so than previous. The rest of the urinary bladder appears unremarkable. GI: There are no bowel loops within the right inguinal hernia sac. No evidence of bowel obstruction, free air,nor abscess. PELVIS: LYMPH NODES: There is no intrapelvic nor inguinal adenopathy. GI: The appendix appears to be surgically absent.There is diverticulosis of the colon within the desc ending-left colon and within the redundant sigmoid. However, there is no evidence of acute diverticu litis. URINARY BLADDER: As above REPRODUCTIVE: Seeds are noted in the prostate gland. Prostate size is upper normal. Seminal vesicle s unremarkable. OSSEOUS: No lytic nor blastic lesions evident. No fractures. Multilevel degenerative disc disease. IMPRESSION: 1. Compared to the prior CT scan of 06/15/2022 there is again noted evidence of previous right nephre ctomy and right adrenalectomy. There is no abnormal new tissue in the right renal fossa nor regional lymphadenopathy nor abnormal fluid collection. The opposite-left kidney remains unremarkable in raymundo earance with no evidence of mass, calculi, or hydronephrosis. 2. There is again noted a prominent right inguinal hernia which measures 7 cm cephalocaudal by 5 cm w kenia and which is again noted to contain a significant part of the right-side of the urinary bladder. However, the bladder wall with in the hernia sac now appears thickened. This is probably related to the abnormal position of this part of the bladder but cannot exclude developed bladder malignancy at this level. The remainder of the bladder appears unremarkable. 3. Seeds are again noted in the prostate gland. 4. Sigmoid diverticulosis without evidence of acute diverticulitis. 5. The appendix is surgically absent. No lytic nor blastic osseous lesions evident. RADIATION DOSE DELIVERED: 2,266.54mGy.cm Total DLP DATA REPOSITORY: All CT scans at this facility are submitted to the National Radiology Data Registry (NRDR) Dose Index Registry (DIR) with the [employer] (ACR). RADIATION OPTIMIZATION: All CT scans at this facility use at least one of these dose optimization te chniques: automated exposure control; mA and/or kV adjustment per patient size (includes targeted exa ms where dose is matched to clinical indication); or iterative reconstruction.
== END ==
PROVIDERS: PCP Family Medicine; Visit Provider Urology
DX: K57.30 Diverticulosis of large intestine without perforation or abscess without bleeding (principal); K40.90 Unilateral inguinal hernia, without obstruction or gangrene, not specified as recurrent; C64.1 Malignant neoplasm of right kidney, except renal pelvis
CPT/HCPCS: 74177; 71260; 82565

== ENCOUNTER → 2023-08-15 01:36 | Outpatient (CLI) | payer MEDICARE, SELFPAY ==
--- NOTE | 2023-08-15 06:45 | DI.US_ITS ---
APPROVED REPORT EXAM: Comprehensive 2D, Doppler, and color-flow Echocardiogram Patient Location: Out-Patient [place] Supervisor: Rachana Gates RDCS (AE) Indications: Check AVR, Obstructive sleep apnea, atherosclerotic heart disease, cad, HTN, Bioprosthet ic AVR Other Information Study Quality: Fair. Technically limited study due to body habitus. Conclusion Normal left ventricular wall thickness and chamber size. EF is 56%. Wall motion is normal. Diastol ic function is normal for age Normal right ventricular size and function Both atria are mildly dilated Bioprosthetic aortic valve. Mean gradient is 15 mmHg. There is no aortic regurgitation Normal mitral valve with mild regurgitation Wall motion Left Ventricle The left ventricle is normal size. The left ventricular systolic function is normal. The left ventric ular ejection fraction is within the normal range. There is normal left ventricular wall thickness. T here is normal LV segmental wall motion. There is no ventricular septal defect visualized. LVEF is 56 %. Right Ventricle Right ventricle is grossly normal in size. Right ventricular systolic function is grossly normal. Atria Left atrium is mildly dilated. Right atrium is mildly dilated. The interatrial septum is intact with no evidence for an atrial septal defect. Aortic Valve Aortic valve is trileaflet. Mean gradient 15 mmHg No aortic regurgitation is present. Bioprosthetic aortic valve is present. Mitral Valve The mitral valve is normal in structure. No evidence of mitral valve stenosis. Mild mitral regurgita tion. Tricuspid Valve The tricuspid valve is normal in structure. There is no tricuspid valve stenosis. Trace tricuspid reg urgitation. Pulmonic Valve The pulmonary valve is normal in structure. There is no pulmonic valvular stenosis. Trace pulmonic re gurgitation. Great Vessels The aortic root is normal in size. The ascending aorta is normal in size. Aortic arch is not well vis ualized. The IVC was not clearly visualized. Pericardium There is no pericardial effusion. 2D Dimensions IVSD d PLAX 0.80 cm M: 0.6-1.2 Ao Root d 2.47 cm M: 3.1 - 3.7 LVPW d PLAX 0.79 cm M: 0.6 - 1.2 Ao Asc Diam d 3.24 cm M: 2.6 - 3.4 LVID d PLAX 4.28 cm M: 4.2 - 5.8 LVDs 3.00 cm M: 2.5 - 4.0 LV EF Teichholz 57.6 % FS 30.04 % LV EDV (Teich) 82.3 mL LV ESV (Teich) 34.9 mL M-Mode TAPSE 1.38 cm (M/F) >1.7 Auto EF LV EDV A4C 173.9 mL LV EDV A2C 156.4 mL LV EDV BP 164.1 mL LV ESV A4C 76.6 mL LV ESV A2C 70.3 mL LV ESV BP 72.4 mL LVEF(%) A4C 56.0 % LVEF(%) A2C 55.0 % LVEF(%) BP 55.9 % LV SV A4C 97.3 ml LV SV A2C 86.0 ml LV SV BP 91.7 ml LV CO A4C 6.9 L/min LV CO A2C 6.3 L/min LV CO BP 6.6 L/min HR A4C 71.29 BPM HR A2C 72.73 BPM LV EDV Index (BP) LA Volume LA Length A4C 6.3 cm LA Length A2C 6.5 cm LA Area A4C s 23.66 cm2 LA Area A2C s 24.13 cm2 LA Vol A4C A-L 75.83 mL LA Vol A2C A-L 75.98 mL LA Vol Biplane A-L 77.3 mL LA Vol/BSA A4C A-L LA Vol/BSA A2C A-L LA Vol/BSA BP A-L 37.5 mL/m2 LA Vol A4C MOD 72.1 mL LA Vol A2C MOD 72.0 mL LA Vol BP MOD 73.4 mL RA Volume RA Area A4C 21.6 cm2 RA ESV A4C (A-L) 65.8mL RA Vol/BSA A4C A-L RA Length A4C 6.0 cm RA ESV A4C (MOD) 61.2mL LV Diastology MV E' medial 0.059 (>0.07 m/s) MV E Vmax 1.16 (0.4-1.3 m/s) MV E/E' MED 19.82 (<14) MV A Vmax 1.15 (0.4-1.3 m/s) MV E' lateral 0.100 (>0.1 m/s) E/A Ratio 1.0 MV E/E' LAT 11.66 (<14) MV E' Average 0.079 m/s MV E/E'(average) 14.68 Aortic Valve AoV Vmax 2.58 m/s LVOT Vmax 1.41 m/s AoV Peak Grad 26.7 mmHg LVOT Peak Grad 7.9 mmHg AoV Area (Vmax) 1.53 cm2 LVOT VTI 0.323 m AoV VTI 0.588 m LVOT Mean Grad 6.0 mmHg AoV Mean Jose. 1.92 m/s LVOT SV 90.78 mL AoV Mean Grad 16.2 mmHg LVOT Diam s 1.85 cm AoV Area (VTI) 1.54 cm2 Velocity Ratio 0.55 Mitral Valve MV DT 225 (160-240 msec) MV Vmax TIPS 1.23 m/s MV Mean Grad 3.2 (<2mmHg) MV VTI 0.470 m Pulmonary Valve PV Vmax 0.77 (0.5-1.5 m/s) RVOT Vmax 0.77 m/s PV Peak Grad 2.4 mmHg RVOT Peak Gr. 2.4 mmHg PV Mean Jose 0.54 m/s RVOT VTI 0.144 m PV Mean Grad 1.3 mmHg RVOT Mean Gr. 1.3 mmHg Tricuspid Valve TV S' 0.07 m/s TR Vmax 2.26 m/s TR Peak Grad 20.4 mmHg
--- NOTE | 2023-08-15 06:45 | DI.NM_ITS ---
APPROVED REPORT Exam: Pharmacologic Patient Location: Out-Patient Room/Bed: Stress Nurse: Bambi Francis RN Ordering Provider:AUBRIE OCASIO, Contact Number: BMI: 29.75 Baseline Rhythm: Sinus Rhythm Indications: CAD, AVR, ARLETTE Medical History Medical History: Anemia, anxiety, ACD, HLD, ARLETTE, GERD, Hx valve replacement, HTN, CKD Cardiac Medications: aspirin, gabapentin, lovastatin, pramipexole, omeprazole, mirtazapine Allergies: diclofenac, terbinafine Cardiac Risk Factors: Family Hx, HTN, HLD, Former smoker Previous Cardiac Procedures: Cabgx3 2014 Pretest Chest Pain Characteristics: None Exercise History: Sedentary Physical Disabilities: Knees Lung Sounds: Clear to auscultation Heart Sounds: Regular Stress Test Details Test: Pharmacologic stress testing performed using 0.4 mg of regadenoson per 5 mL given IV over 10 s econds. Nuclear Acquisition: Rest Tc-99m/Stress Tc-99m 1 day Rest Isotope: Tc-99m Sestamibi. Dose: 11 Date: 08/15/2023 Injection Time: 0845 Stress Isotope: Tc-99m Sestamibi. Dose: 34 Date: 08/15/2023 Injection Time: 1020 HR Resting HR Supine: 67 bpm Max Heart Rate (APMHR): 141.648684 bpm Target HR (85% APMHR): 119.019223 bpm Max HR Achieved: 102 bpm % of APMHR: 72.34 Recovery HR: 85 bpm BP Resting BP Supine: 142/84 mmHg Max BP: 148/82 mmHg Recovery BP: 138/74 mmHg ECG Resting ECG: Sinus Rhythm Ectopy: none Stress ECG: Sinus Rhythm ST Change: No significant ST segment changes noted Arrhythmia: VPC's Recovery ECG: Sinus Rhythm Recovery ST Change: No significant ST segment changes noted Recovery Arrhythmia: None Clinical Rate Pressure Product: [id number] Stress ECG Conclusion 1. Resting electrocardiogram showed right axis deviation, left ventricular hypertrophy with repolariz ation abnormality 2. Patient underwent testing using pharmacologic stress with regadenoson 3. Peak heart rate achieved was 72%. of predicted for age 4. The electrocardiographic portion of the test was nondiagnostic 5. See MPI report Stress Test Summary STAGE HR BP SpO2 Symptoms NOTES Supine 67 142/84 1 min post Lexiscan injection 90 148/82 3 min post Lexiscan injection 86 142/72 6 min post Lexiscan injection 85 138/74 MPI Conclusion Myocardial perfusion is normal. There is no ischemia or evidence of prior infarction EF is 60% with normal wall motion Radiologist Interpretation Radiologist agrees with Radio Officer's Interpretation. Radiologist Interpretation by: Baylee Buchanan MD Interpretation Date/Time: 08/16/2023 10:46:06
[2023-08-15] MEDS: Regadenoson 0.4 MG/5 ML SYR IVP (10:17)
== END ==
PROVIDERS: PCP Family Medicine; Visit Provider Internal Medicine Cardiovascular Disease
DX: G47.33 Obstructive sleep apnea (adult) (pediatric) (principal); I25.10 Atherosclerotic heart disease of native coronary artery without angina pectoris; Z95.2 Presence of prosthetic heart valve
CPT/HCPCS: 78452; 93016; 93018; 93306; 93017; J2785

== ENCOUNTER 2023-10-10 05:50 | Outpatient (CLI) | payer MEDICARE, SELFPAY ==
[2023-10-12 09:53] LABS: PSA, Ultrasensitive 0.28 ng/mL (<= 6.5)
[2023-10-13 17:29] LABS: Testosterone, Total 355 ng/dL (240-950)
== END 2023-10-10 05:51 | disposition home or self-care (01) ==
LOC: LBO 05:50
PROVIDERS: PCP Family Medicine; Visit Provider Colon & Rectal Surgery
DX: C61 Malignant neoplasm of prostate (principal)
CPT/HCPCS: 36415; 84153; 84403

== ENCOUNTER → 2023-12-10 09:06 | Outpatient (BNVA) | payer MEDICARE, SELFPAY | PROVIDERS: PCP Family Medicine; Visit Provider Internal Medicine Cardiovascular Disease | DX: Z95.1 Presence of aortocoronary bypass graft (principal); Z95.2 Presence of prosthetic heart valve; I25.10 Atherosclerotic heart disease of native coronary artery without angina pectoris | CPT/HCPCS: 99213 ==

== ENCOUNTER 2024-04-08 03:31 | Outpatient (CLI) | payer MEDICARE, SELFPAY ==
[2024-04-10 16:02] LABS: PSA, Ultrasensitive 0.17 ng/mL (<= 6.5)
== END 2024-04-08 03:32 | disposition home or self-care (01) ==
LOC: LBO 03:31
PROVIDERS: PCP Family Medicine; Visit Provider Colon & Rectal Surgery
DX: C61 Malignant neoplasm of prostate (principal)
CPT/HCPCS: 36415; 84153

== ENCOUNTER 2024-07-20 00:10 | Outpatient (CLI) | payer MEDICARE, SELFPAY ==
[2024-07-20 08:37] LABS: Anion Gap 6.6 mmol/L (3-11); BUN 27 mg/dL (7-18); CO2 29.4 mmol/L (21.0-32.0); CREATININE 1.7 mg/dL (0.70-1.30); Calcium 9.1 mg/dL (8.5-10.1); Chloride 106 mmol/L (98-107); Estimated GFR 40.25 (mL/min/1.73m2); Glucose 95 mg/dL (74-106); Potassium 4.5 mmol/L (3.5-5.1); Sodium 142 mmol/L (136-145)
[2024-07-20] MEDS: Normal Saline - Diluent 50 ML VIAL IJ (10:06)
[2024-07-20] MEDS: Omnipaque 350 MG/ML 100 ML BTL IJ (10:06)
--- NOTE | 2024-07-20 10:17 | DI.CT_ITS ---
Exam(s) CT CHEST/ABD/PEL W EXAM: CT CHEST/ABD/PEL W CLINICAL HISTORY: Renal cell carcinoma, unspecified laterality, C64.9; s/p rt nephrectomy,. TECHNIQUE: Imaging Protocol: Axial computed tomography images with coronal and sagittal reformatted images were created and reviewed. Computer aided detection (CAD) was utilized. CONTRAST MATERIAL: Intravenous: Omnipaque 350 Contrast volume:100 ml Oral: yes / COMPARISON: CT CT CHEST/ABD/PEL W from 07/02/2023 FINDINGS: CHEST: Thyroid: Right thyroid nodules again noted. Tracheobronchial tree: Patent. Pulmonary parenchyma: No consolidation or dominant measurable mass. No suspicious pulmonary nodules. Pleura: No effusion or pneumothorax. Mediastinum: No adenopathy. Small hiatal hernia. Aorta: Thoracic portion non-dilated. Pulmonary arteries: No visible emboli. Heart: Aortic valve prosthesis. No pericardial effusion. Bones: Sternotomy wires. No lytic or blastic lesions.Degenerative disc changes. A stable mild T3 an d T5 compression fractures. Soft tissues: Unremarkable. ABDOMEN and PELVIS: Liver: Normal density. No measurable mass. Gallbladder and biliary tract: No evidence of stones or wall thickening. No biliary dilatation. Pancreas: Normal density, no abnormal calcifications or inflammatory process. Spleen: Normal. Kidneys: Status post right nephrectomy. The left kidney shows normal size, contour and axis. No radi odense stones. No obstructive uropathy. No suspicious masses seen. Adrenal glands: Stable appearance left adrenal myelolipoma. Right adrenal gland is surgically absent . Aorta: Abdominal portion non-dilated. Lymph nodes: Within normal limits. Soft tissues: Unremarkable. Bladder: Portion of the right side of the the bladder again is again noted to be extending into the r ight inguinal canal. There is some thickening of the bladder wall which appears unchanged. Bowel: No obstruction or bowel wall thickening. Diverticulosis of the descending and sigmoid colon. No evidence of diverticulitis. The sigmoid colon is redundant. The appendix is normal. Peritoneal cavity: No ascites. No focal collection. No mesenteric inflammatory response. No free ai r. Bones: Unremarkable for age. Reproductive organs: Metallic seeds in prostate gland. IMPRESSION: No evidence of metastatic disease in the chest, abdomen or pelvis. Status post right nephrectomy and adrenalectomy. Stable appearance of left adrenal myelolipoma. Stable appearance of right-sided the bladder extending to into right inguinal hernia. RADIATION DOSE DELIVERED: 679.25mGy.cm Total DLP DATA REPOSITORY: All CT scans at this facility are submitted to the National Radiology Data Registry (NRDR) Dose Index Registry (DIR) with the [employer] (ACR). RADIATION OPTIMIZATION: All CT scans at this facility use at least one of these dose optimization te chniques: automated exposure control; mA and/or kV adjustment per patient size (includes targeted exa ms where dose is matched to clinical indication); or iterative reconstruction.
[2024-07-22 10:58] LABS: PSA, Ultrasensitive 0.22 ng/mL (<= 7.2)
== END 2024-07-20 00:30 ==
LOC: DI 00:10
PROVIDERS: Urology; PCP Family Medicine; Visit Provider Internal Medicine Cardiovascular Disease
DX: C61 Malignant neoplasm of prostate (principal); Z90.5 Acquired absence of kidney; C64.9 Malignant neoplasm of unspecified kidney, except renal pelvis
CPT/HCPCS: 74177; 80048; 84153; 71260; J3490

== ENCOUNTER → 2024-09-09 10:34 | Outpatient (BNVA) | payer MEDICARE, SELFPAY | PROVIDERS: PCP Family Medicine; Referring Provider Family Medicine; Visit Provider Student in an Organized Health Care Education/Training Program | DX: K40.20 Bilateral inguinal hernia, without obstruction or gangrene, not specified as recurrent (principal) | CPT/HCPCS: 99214 ==

== ENCOUNTER 2024-09-14 09:10 | Day surgery (SDC) | payer MEDICARE, SELFPAY ==
[2024-09-14] VITALS (31 sets, daily range): BP systolic 132–186; BP diastolic 67–110; PULSE 74–88; RESP 10–44; TEMP 36.1–37; O2SAT 91–95; BMI 33.2
--- NOTE | 2024-09-14 10:35 | ANES.PREOP_ITS ---
General Info Date of Service Date Performed: 09/14/24 Height: 5 ft 7 in Weight: 96.218 kg Body Mass Index (BMI): 33.2 Surgical Procedure: Operation Date: 09/14/24 10:55 Proposed Procedure Side Surgeon p Hernia Inguinal Laparoscopic w/Mesh, Rt possible LT Right Louis Baker MD Meds Allergies and Home Medications Allergies Allergy/AdvReac Type Severity Reaction Status Date / Time terbinafine Allergy Intermediate Unknown Verified 09/14/24 10:24 diclofenac AdvReac Intermediate Diarrhea, Verified 09/14/24 10:24 UPSET STOMACH Home Medication ?Medication ?Instructions ?Recorded cholecalciferol (vitamin D3) 25 2,000 units PO DAILY 06/20/16 mcg (1,000 unit) tablet glucosamine HCl 750 mg tablet 1,500 mg PO DAILY 07/11/18 aspirin 81 mg tablet,delayed 81 mg PO DAILY 10/26/19 release latanoprost 0.005 % eye drops 1 drp ophthalmic (eye) QPM 10/26/19 acetaminophen 500 mg tablet 1,000 mg PO TID 11/18/20 (Tylenol Extra Strength) tamsulosin 0.4 mg capsule 0.4 mg PO HS 11/24/20 boron citrate 3 mg tablet 3 mg PO DAILY 04/26/21 bupropion HCl 300 mg 24 hr tablet, 300 mg PO QAM #90 tabs 09/19/23 extended release sodium bicarbonate 650 mg tablet 1,300 mg (2 x 650 mg) PO BID #360 11/13/23 tabs bupropion HCl 150 mg 24 hr tablet, 150 mg PO QAM #90 tabs 01/20/24 extended release gabapentin 800 mg tablet 800 mg PO HS #90 tab-caps 02/18/24 omeprazole 20 mg capsule,delayed 20 mg PO DAILY #90 caps 02/18/24 release pramipexole 0.125 mg tablet 0.125 mg PO HS #90 tab-caps 02/18/24 mirtazapine 7.5 mg tablet 1.875 mg (1/4 x 7.5 mg) PO QHS #25 05/13/24 tabs acetylcysteine 600 mg capsule 1,200 mg PO BID 09/07/24 sildenafil 100 mg tablet 100 mg PO DAILY PRN 09/07/24 cyanocobalamin (vitamin B-12) 1,000 mcg IM .q 6 weeks #2 vials 09/08/24 1,000 mcg/mL injection solution syringe with needle 3 mL 21 gauge ##15 09/10/24 x 1 (BD Luer-Sofia Syringe) lovastatin 20 mg tablet 20 mg PO QPM 09/11/24 citalopram 20 mg tablet 20 mg PO HS 09/14/24 oxybutynin chloride 10 mg 10 mg PO HS 09/14/24 tablet,extended release 24 hr Current Visit Medications: Current Medications Generic Name Dose Route Start Last Admin Trade Name Fremeli PRN Reason Stop Dose Admin Heparin Sodium (Porcine) 5,000 units 09/14/24 06:00 Heparin 5,000 Units/Ml Vial SC 09/14/24 16:00 PREOP MYRIAM Ringer's Solution 1,000 mls @ 80 mls/hr 09/14/24 06:00 IV 09/14/24 23:59 INFUSION MYRIAM IV Miscellaneous Supplies 1 each 09/14/24 06:00 Iv Access IV 09/14/24 23:59 DIRECTED MYRIAM Sodium Chloride 0 ml 09/14/24 06:00 Normal Saline Flush 10 Ml Syr IV 09/14/24 23:59 PRN PRN Sodium Chloride 0 ml 09/14/24 06:00 Normal Saline 10 Ml Vial IJ 09/14/24 23:59 DIRECTED PRN Sterile Water 0 ml 09/14/24 06:00 Water,Injection,Sterile 10 Ml Vial IJ 09/14/24 23:59 DIRECTED PRN PFSH Active Problems Active Problems: Problem Status Onset Code Inguinal hernia bilateral, non-recurrent Acute K40.20 Low testosterone Acute R79.89 Erectile disorder Acute N52.9 Left ankle pain Acute M25.572 Anemia Chronic D64.9 Anxiety Acute F41.9 Atherosclerosis of [place] coronary artery Acute I25.10 Benign prostatic hyperplasia Acute 12/25/12 N40.0 Depressive disorder Acute F32.9 Disorder of vitamin B12 Acute 14 E53.8 Gastroesophageal reflux disease Acute K21.9 Hyperlipidemia Acute E78.5 Obstructive sleep apnea syndrome Acute G47.33 Sensorineural hearing loss, bilateral Acute 18 H90.3 Primary osteoarthritis of right knee Chronic M17.11 Herpes zoster without complication Acute B02.9 Arthritis of left ankle Chronic M19.072 Generalized anxiety disorder Acute F41.1 History of aortic valve replacement Acute ~2017 Z95.2 POLST (Physician Orders for Life-Sustaining Treatment) Acute Z78.9 Prostate cancer Chronic C61 Pulmonary nodule seen on imaging study Acute R91.1 Anemia Chronic D64.9 Renal cancer Chronic C64.9 Essential hypertension Acute I10 Chronic kidney disease, stage 3 Acute N18.30 Medical History Medical History Hemorrhage following nephrectomy Surgical History Surgical History S/P knee surgery s/p knee replacement History of cataract surgery Hx of tonsillectomy Hx of CABG (~2017) 2017 patient had coronary artery bypass grafting with a MCMILLAN to the LAD Colonoscopy - MAC (06/25/16) Tobacco Smoking/Tobacco Use Status: Former Tobacco Use Passive smoking exposure: No Alcohol Alcohol Intake: current Alcohol intake frequency: holidays/special occasions only Alcohol type: beer Substance Use Substance use: Never Substance use type: does not use Counseling provided: none Vital Signs and Lab Results Vital Signs Most Recent Vital Signs in EMR: Temp Pulse Resp BP Pulse Ox 37 C 77 16 132/86 95 09/14/24 09:20 09/14/24 09:20 09/14/24 09:20 09/14/24 09:20 09/14/24 09:20 Lab Results Blood Type / Crossmatch: No Data to Display Complete Blood Count: No Data to Display Complete Metabolic Panel: No Data to Display Liver Function Panel: No Data to Display Coagulation Panel: No Data to Display Cardiac Panel: No Data to Display Arterial Blood Gas: No Data to Display Venous Blood Gas: No Data to Display Pancreas Panel: No Data to Display Thyroid Panel: No Data to Display Infectious Disease: No Data to Display Blood Cultures: No Data to Display Toxicology Panel: No Data to Display Imaging and Studies Imaging and Studies Study information below may be from another EMR and interpreted by another provider. Please see original notes in EMR for more complete details. EKG Summary: DATE/TIME OF SERVICE: 11/08/20 1134 : 4PERFORMING LOCATION: [place] APPROVED REPORT Exam: Resting ECG Reason for Exam: high potassium Patient Location: E HR:61 bpm ECG Measurements Heart Rate 61 AXIS KS 194 P 41 QRSd 90 QRS 81 QT 392 T-20 QTc 394 Conclusion Sinus rhythm...normal P axis, V-rate 60- 99 Stress Test Summary: 07/2023:MPI Conclusion Myocardial perfusion is normal. There is no ischemia or evidence of prior infarction EF is 60% with normal wall motion Date of study: 07/02/2018 Impressions: Normal study after maximal exercise. Date of study: 03/14/2016 Ordering physician: Christopher Seo MD Impressions: - The stress electrocardiography portion appears to be a false positive. - Normal myocardial perfusion and contraction after maximal exercise. Echocardiogram Summary: 07/2023:Conclusion Normal left ventricular wall thickness and chamber size. EF is 56%. Wall motion is normal. Diastolic function is normal for age Normal right ventricular size and function Both atria are mildly dilated Bioprosthetic aortic valve. Mean gradient is 15 mmHg. There is no aortic regurgitation Normal mitral valve with mild regurgitation Date of Exam: 11/08/20Sex: M Admission Date: 11/08/20 : 1945 Age: 75 Indications: Exertional SOB, AVR Bioprosthetic Other Information Study Quality: Adequate Conclusion Left Ventricle : The left ventricle is normal size. Left ventricular systolic function is mildly decreased. There is normal left ventricular wall thickness. There is normal LV segmental wall motion. LVEF is 50%. Right Ventricle : Right ventricle is mildly dilated. The right ventricular systolic function is normal. The RVSP is 29.4 mmHg. Atria : The left atrium size is normal. The right atrium size is normal. Aortic Valve : Bioprosthetic aortic valve is present. No aortic regurgitation is present. No hemodynamically significant valvular aortic stenosis. Mitral Valve : Mild mitral annular calcification. Mild mitral regurgitation. No evidence of mitral valve stenosis. Great Vessels : The aortic root is normal in size. The ascending aorta is normal in size. IVC is normal in size and collapses >50% with inspiration. Compared to echocardiogram from 11/12/2018, the aortic valve appears to be functioning well. The ejection fraction has gone from normal to mildly reduced with no significant regional wall motion abnormalities. Anesthesia Assessment and Plan Anesthesia History Personal History: No History of Anesthesia Complications Family History: No Family History of Anesthesia Complications Exercise Tolerance Exercise Tolerance: Metabolic Equivalents>4 Pertinent Negatives Pertinent Negatives: No Symptoms of GERD Cardiac & Pulmonary Exam Cardiac Exam: Normal S1/S2 Heart Sounds Pulmonary Exam: Clear Bilateral Breath Sounds Implantable Cardiac Device Does patient have a Pacemaker or an ICD?: No Airway Exam Known Difficult Airway: No Mallampati Class: 1 Mouth Opening: Normal (> 3cm) Thyromental Distance: Greater than 3 cm Neck Range of Motion: Full ROM Neck Circumference: Normal Teeth Condition: Normal Dentition ASA Classification ASA Score: ASA 3 Emergency Case?: No NPO Status NPO Status: NPO Clears >2 hours, Solids >8 hours Anesthesia Plan Resuscitation Status: Full Code Anesthesia Technique: General Anesthesia Airway Planned: Endotracheal Tube Monitors Used: Standard Monitors
[2024-09-14] MEDS: Lactated Ringers 1,000 ML 80 ML IV (10:45)
[2024-09-14] MEDS: Heparin 5,000 UNITS/ML VIAL 5000 UNITS SC (10:50)
[2024-09-14] MEDS: Bupivacaine 0.25% Pres-Free 30 ML VIAL (12:23)
[2024-09-14] MEDS: Bupivacaine LIPOSOME/PF 133 MG/10 ML VIAL IJ (12:23)
[2024-09-14] MEDS: fentaNYL 100 MCG/2 ML VIAL IVP ×2 (14:48→15:03)
--- NOTE | 2024-09-14 14:49 | W.PM.OP ---
Operative Note Operative Note Refer to Anesthesia Record Procedure Description: PROCEDURES PERFORMED: 1. Laparoscopic repair of primary incarcerated RIGHT inguinal hernia 2. Laparoscopic repair of primary, reducible LEFT inguinal hernia 3. Laparoscopic repair of primary incarcerated LEFT femoral hernia 4. Laparoscopic bilateral TAP block Preoperative Diagnosis: incarcerated right inguinal hernia Postoperative Diagnosis: Incarcerated RIGHT DIRECT inguinal hernia, reducible primary LEFT InDIRECT inguinal hernia, incarcerated LEFT FEMORAL hernia. Surgeon: Meron Baker Assist: None Anesthesia: General Anesthesiologist: Hollis Indication: Chronically incarcerated right inguinal hernia containing bladder. Clinical and radiographic suspicion for hernia on the left. Findings: No bowel in either hernia. The left?side did not have incarcerated contents in the indirect inguinal hernia that was visible. The right side had a large direct defect that was tightly incarcerated with preperitoneal contents that included the bladder and associated preperitoneal fat. Exposure on the left side showed densely?incarcerated preperitoneal fat in a left femoral hernia. Bilateral mesh repairs performed. Complications: None Estimated Blood Loss: (5cc) Scant Specimens removed: None Grafts or implants: 3D jh large mesh bilateral Procedure in detail: Written consent was obtained from the patient who was in agreement with the risks, the benefits and the indications for the procedure. The patient was taken to the operating suite and laid supine on the operating table with both arms tucked. IV antibiotics were not indicated and DVT prophylaxis had been given. Venodynes were in place. General anesthesia was administered which was tolerated very well. We then prepped and draped the abdomen in sterile fashion. A timeout was performed. When we were all in agreement we began the procedure. Local anesthetic was injected at each trocar site. Within the umbilicus a small stab incision was made and a 5 mm Optiview trocar was used to enter into the abdomen under direct visualization. The liver was inspected and did not appear cirrhotic. 2 other 5 mm port were placed under direct visualization and the umbilical port was upsized to a 12 mm to facilitate passing the mesh and sutures. Under direct visualization I performed a TAP block bilateral. The patient was placed in Trendelenburg and we had good visualization of the intra-abdominal contents, pelvis and the bilateral pelvic sidewalls. Hernia defects are visible on both sides. No intra-abdominal contents are herniated or incarcerated on either side. In standard/usual fashion I created peritoneal flaps. A combination of blunt and sharp dissection was performed using the LigaSure. I was able to reduce the bladder and preperitoneal fat as well as the hernia sac out of the direct space on the right. This was very tightly incarcerated and quite tedious to perform. I developed the space all the way medial to beyond the pubic tubercle midline. Jabier's ligament was clearly exposed as well as all 3 potential defects of the myopectineal orifice. I then turned my attention to the left side and exposed it in similar fashion. I had to laparoscopically reduce densely incarcerated preperitoneal fat out of the femoral space which was quite tight in order to facilitate mesh placement and cover this defect with mesh. Hemostasis was excellent. Two 3D jh mesh were introduced in usual fashion and laid perfectly within the spaces I had created. The indirect, direct as well as the femoral spaces were all completely covered with significant and adequate overlay. I sutured a corner of each mesh to Jabier's ligament with Vicryl and in the upper outer quadrant to the fascia with Vicryl to the mesh would not rotate or migrate. This was done on both sides. Next I closed both peritoneal flaps with the V-loc. Hemostasis was excellent. I closed the umbilical 12mm defect with 0 Vicryl. The 5 mm ports were removed. I closed the skin with Monocryl and put Dermabond on top. The sponge, instrument and sharps count was correct x3 at the end of the procedure. The testicles were present in the scrotum bilateral after the procedure. The patient tolerated the procedure well and was taken to the PACU in hemodynamically stable condition. Date of Procedure: 09/14/24
--- NOTE | 2024-09-14 14:57 | W.ANESPOSTOP ---
Postoperative Evaluation Date, Time and Location Date Performed: 09/14/24 Time Performed: 14:57 Patient Location: PACU Vital Signs Most Recent Imported Vital Signs: Most Recent Vital Signs Temp Pulse Resp BP Pulse Ox 37 C 77 16 132/86 95 09/14/24 09:20 09/14/24 09:20 09/14/24 09:20 09/14/24 09:20 09/14/24 09:20 Pain Score Most Recent Pain Score: Most Recent Pain Score Pain Level 2 09/14/24 09:20 Assessment Mental Status: Arousable with meaningful communication (still clearing. ) Airway and Respiratory Function: Patent airway with normal (patient baseline) respiratory exam Cardiovascular Function: Hemodynamically Stable Hydration Status: Adequately Hydrated Nausea & Vomiting: No Nausea or Vomiting Pain: Pain is tolerable per patient Peripheral Nerve Block: Patient did not receive a nerve block
--- NOTE | 2024-09-14 15:19 | W.PM.DSUDISC ---
Date of service: 09/14/24 Discharge Plan Disposition Patient Disposition: Home Condition: Good Discharge Details Attending Provider: Louis Baker Primary Care Provider: Jann Knight Home Meds and New Rx's Prescriptions: No Action acetaminophen [Tylenol Extra Strength] 500 mg tablet 1,000 mg PO TID glucosamine HCl 750 mg tablet 1,500 mg PO DAILY tamsulosin 0.4 mg capsule 0.4 mg PO HS aspirin 81 mg tablet,delayed release (DR/EC) 81 mg PO DAILY latanoprost 0.005 % drops 1 drp OP QPM boron citrate 3 mg tablet 3 mg PO DAILY gabapentin 800 mg tablet 800 mg PO HS Qty: 90 3RF omeprazole 20 mg capsule,delayed release(DR/EC) 20 mg PO DAILY Qty: 90 3RF pramipexole 0.125 mg tablet 0.125 mg PO HS Qty: 90 3RF bupropion HCl 300 mg tablet extended release 24 hr 300 mg PO QAM Qty: 90 3RF Rx Instructions: take one tablet daily with the other tablet of 150mg sodium bicarbonate 650 mg tablet 1,300 mg PO BID Qty: 360 3RF bupropion HCl 150 mg tablet extended release 24 hr 150 mg PO QAM Qty: 90 4RF mirtazapine 7.5 mg tablet 1.875 mg PO QHS Qty: 25 3RF Rx Instructions: take one quarter of a tablet at bedtime sildenafil 100 mg tablet 100 mg PO DAILY PRN Rx Instructions: 05 - 1 tablets by mouth as needed for erectile dysfunction (no more than once per day) acetylcysteine 600 mg capsule 1,200 mg PO BID cyanocobalamin (vitamin B-12) 1,000 mcg/mL solution 1,000 mcg IM .q 6 weeks Qty: 2 3RF (DME) BD Luer-Sofia Syringe 3 mL 21 gauge x 1 syringe 1 ea Miscellaneous monthly Qty: 15 3RF Rx Instructions: 23G- 1: use q 6 weeks for vitamin B12 IM injection cholecalciferol (vitamin D3) 1,000 UNITS tablet 2,000 units PO DAILY lovastatin 20 mg tablet 20 mg PO QPM Rx Instructions: take one tablet daily oxybutynin chloride 10 mg tablet extended release 24hr 10 mg PO HS citalopram 20 mg tablet 20 mg PO HS Discharge Instructions Additional Instructions: INSTRUCTIONS: Incisions: Keep clean and dry but they do not need to be covered. It is okay to shower but no tub bathing for 1 week. You can peel the glue off after 1 week. Activity: As tolerated. Light duty without any heavy lifting/pulling or pushing for 6-8 weeks. Light?duty activity is encouraged and you should be up and about and active. Diet: Regular diet as tolerated. Medications: Resume all of your usual/regular home medications. Follow-up: If you are having any issues or concerns call the surgery office immediately. Routine follow-up in the surgery office in 3-4 weeks. Pain control: Take Tylenol, 1000 mg, every 6 hours on a schedule for the next 3 days. You can use ibuprofen in addition to Tylenol. Ice is also helpful. Overall: Symptoms should not be worsening. If you have any difficulty breathing or you have return of symptoms of brought you to the hospital or your pain is otherwise worsening each day and you should call the doctor's office or come into the hospital to be checked out. Activity:: Activity as Tolerated Diet:: As Tolerated
== END 2024-09-14 17:25 | disposition home or self-care (01) ==
PROVIDERS: PCP Family Medicine; Visit Provider Student in an Organized Health Care Education/Training Program
PROC: (CPT 49650; principal; 2024-09-14 10:45)
DX: K40.31 Unilateral inguinal hernia, with obstruction, without gangrene, recurrent (principal); K40.90 Unilateral inguinal hernia, without obstruction or gangrene, not specified as recurrent; K41.30 Unilateral femoral hernia, with obstruction, without gangrene, not specified as recurrent
CPT/HCPCS: 49651; 49553; 49650; C1781; J0131; J0665; J0666; J1100; J1644; J1805; J2003; J2405; J2704; J3010

== ENCOUNTER → 2024-10-08 15:15 | Outpatient (BNVA) | payer MEDICARE, SELFPAY | PROVIDERS: PCP Family Medicine; Referring Provider Family Medicine; Visit Provider Physical Therapy Assistant | DX: Z48.817 Encounter for surgical aftercare following surgery on the skin and subcutaneous tissue (principal) ==

== ENCOUNTER 2024-11-27 00:18 | Outpatient (CLI) | payer MEDICARE, SELFPAY ==
--- NOTE | 2024-11-27 | DI.CT_ITS ---
Exam(s) CT CHEST/ABD W EXAM: CT CHEST/ABD W CLINICAL HISTORY: RENAL CELL CARCINOMA, UNSPECIFIED LATERALITY C64.9. TECHNIQUE: Imaging Protocol: Axial computed tomography images with coronal and sagittal reformatted images were created and reviewed CONTRAST MATERIAL: Intravenous: Omnipaque 350 Contrast volume:75 mL Oral: Yes. Oral contrast was also administered for bowel opacification. COMPARISON: CT CT CHEST/ABD/PEL W from 07/20/2024 FINDINGS: CHEST: LUNGS: A small fissure based noncalcified nodule in the left lung measures 8 x 3 mm, unchanged. There are no new ominous pulmonary nodules nor pleural effusions. Some atelectasis is again noted in the lingular segment of the left lung. No new confluent infiltrates.. MEDIASTINUM: There is no hilar nor mediastinal adenopathy. Thyroid gland is again noted be abnormal with enlarged right lobe which appears to contain a taller than wider nodule. CARDIAC: Heart size is normal. There is no pericardial effusion.Caliber of the thoracic aorta is within normal limits. OSSEOUS: Sternotomy wires. Non fused sternotomy. No fractures. No significant osseous lesions. No fractures.. ABDOMEN: GI: Mild-moderate size hiatal hernia is again noted. The oral contrast has not yet reached the large bowel by the time of image acquisition. However, there is no evidence of obvious small bowel obstruction. Please note that the pelvis was not scanned so it is not possible to study the bowel loops within the pelvis LIVER: There are no focal hepatic lesions nor dilatation of intrahepatic ducts. GALLBLADDER/BILIARY: No obvious gallbladder pathology. CBD is not dilated. PANCREAS: No evidence of pancreatic mass nor dilatation of the pancreatic duct. SPLEEN: Spleen is not enlarged. There are no intrasplenic lesions. Splenic and portal veins are patent. ADRENALS: Small fat containing nodule at the genu of the left adrenal gland appears unchanged. The right adrenal gland is again noted be surgically absent. KIDNEYS: Again noted is evidence of previous right nephrectomy. There is no abnormal mass nor adenopathy in the right renal fossa. The opposite-left kidney appears unremarkable. No masses. No calculi nor hydronephrosis. Lower ureter and urinary bladder are not included in the field of view of this study ABDOMINAL AORTA: Abdominal aorta is not enlarged. LYMPH NODES: There is no retroperitoneal nor paraaortic adenopathy. ABDOMINAL WALL: No evidence of significant anterior abdominal wall nor inguinal hernia. GI: There is no evidence of bowel obstruction. OSSEOUS.: No significant osseous lesions in the field of view of this study. No fractures. Please note that the pelvis was not scanned, as per request IMPRESSION: 1. No evidence of metastatic lung nodules, pleural effusions, nor intrathoracic adenopathy. 2. There is a wider than taller nodule in the right thyroid lobe which should undergo further study with ultrasound of the thyroid gland.. 3. Small-moderate size hiatal hernia again noted. 4. Unchanged small fat containing benign-appearing nodule in left adrenal gland. Right adrenal gland is again noted be surgically absent. 5. The right kidney is again noted be surgically absent. There is no abnormal tissue nor lymphadenopathy in the right renal fossa. The remaining left kidney appears unremarkable. The urinary bladder is not included in the field of view of this study which does not include the pelvis.. 6. No significant bone lesions identified. RADIATION DOSE DELIVERED: 741.79mGy.cm Total DLP DATA REPOSITORY: All CT scans at this facility are submitted to the National Radiology Data Registry (NRDR) Dose Index Registry (DIR) with the [employer] (ACR). RADIATION OPTIMIZATION: All CT scans at this facility use at least one of these dose optimization techniques: automated exposure control; mA and/or kV adjustment per patient size (includes targeted exams where dose is matched to clinical indication); or iterative reconstruction.
[2024-11-27] MEDS: Barium Sulfate 2% W/V-Creamy Vanilla Smoothie 450 ML BTL PO (08:15)
[2024-11-27 08:48] LABS: BUN 28 mg/dL (7-18); CREATININE 1.8 mg/dL (0.70-1.30); Calcium 8.7 mg/dL (8.5-10.1); Chloride 103 mmol/L (98-107); Estimated GFR 37.58 (mL/min/1.73m2); Glucose 91 mg/dL (74-106); Potassium 4.6 mmol/L (3.5-5.1); Sodium 139 mmol/L (136-145)
[2024-11-27] MEDS: Normal Saline - Diluent 50 ML VIAL IJ (09:40)
[2024-11-27] MEDS: Omnipaque 350 MG/ML 500 ML BTL-Imaging package 75 ML IJ (09:42)
== END 2024-11-27 00:38 ==
LOC: DI 00:18
PROVIDERS: PCP Family Medicine; Visit Provider Urology
DX: C64.1 Malignant neoplasm of right kidney, except renal pelvis (principal)
CPT/HCPCS: 80048; 71260; 74160

== ENCOUNTER 2024-12-08 02:17 | Outpatient (CLI) | payer MEDICARE, SELFPAY ==
--- NOTE | 2024-12-08 08:00 | DI.US_ITS ---
Exam(s) US THYROID EXAM: US THYROID CLINICAL HISTORY: nodule of rt gland seen on CT,thyroid nodule,E04.1. TECHNIQUE: Ultrasound thyroid performed using standard protocol. COMPARISON: CT CT CHEST/ABD/PEL W from 07/20/[address] CHEST/ABD W from 11/27/2024 FINDINGS: ISTHMUS: 5 mm RIGHT LOBE: Size: 5.4 x 3.8 x 2.5 cm Echogenicity: Normal. Vascularity: Normal. Nodules: Nodule in the inferior pole measuring 4.2 by 3.0 x 3.0 cm. Mixed cystic and solid, taller than wide, isoechoic, lobulated margins with punctate microcalcifications. TR 5. FNA is indicated. LEFT LOBE: Size: 4.1 x 1.7 x 1.9 cm Echogenicity: Normal. Vascularity: Normal. Nodules: 6 millimeter circumscribed hypoechoic nodule. No follow-up recommended. OTHER FINDINGS: None. IMPRESSION: 4.2 cm TR 5 nodule mid to lower pole right lobe. FNA recommended. DATA REPOSITORY:
== END 2024-12-08 02:37 ==
LOC: DI 02:17
PROVIDERS: PCP Family Medicine; Visit Provider Family Medicine
DX: E04.1 Nontoxic single thyroid nodule (principal)
CPT/HCPCS: 76536

== ENCOUNTER → 2024-12-11 08:57 | Outpatient (BNVA) | payer MEDICARE, SELFPAY | PROVIDERS: PCP Family Medicine; Referring Provider Family Medicine; Visit Provider Internal Medicine Cardiovascular Disease | DX: Z95.2 Presence of prosthetic heart valve (principal); Z95.1 Presence of aortocoronary bypass graft | CPT/HCPCS: 99213 ==

== ENCOUNTER 2025-02-01 04:10 | Outpatient (CLI) | payer MEDICARE, SELFPAY ==
[2025-02-01 11:22] LABS: Estimated GFR 43.29 (mL/min/1.73m2)
== END 2025-02-01 04:11 | disposition home or self-care (01) ==
LOC: LBO 04:10
PROVIDERS: PCP Family Medicine; Visit Provider Physician Assistant
DX: C64.9 Malignant neoplasm of unspecified kidney, except renal pelvis (principal)
CPT/HCPCS: 36415; 82565

== ENCOUNTER 2025-02-11 04:20 | Outpatient (CLI) | payer MEDICARE, SELFPAY | END 2025-02-11 04:21 | disposition home or self-care (01) | LOC: LBO 04:20 | PROVIDERS: PCP Family Medicine; Visit Provider Physician Assistant | DX: C61 Malignant neoplasm of prostate (principal) | CPT/HCPCS: 36415; 84153 ==

== ENCOUNTER 2025-03-02 03:33 | Outpatient (CLI) | payer MEDICARE, SELFPAY ==
--- NOTE | 2025-03-02 06:00 | DI.US_ITS ---
Exam(s) US NEEDLE LOCAL OTHER WO RAD EXAM: right-sided nodule,ultrasound guided bx,e04.1 COMPARISON: No exams were available for comparison TECHNIQUE: Ultrasound performed using standard protocol. FINDINGS: Sonography was provided for Dr. Keller during the performance of a right thyroid nodule biopsy. Please refer to the procedure report for complete details. DATA REPOSITORY:
--- NOTE | 2025-03-02 12:15 | PAPNONF_PTH ---
PATIENT: Jefferson Shepherd LOC: [facility] U#:[id number] AGE/SX: 79/M ROOM: RE03/02/[address]: Arabella Silverman : 1945 BED: DIS: 03/02/2025 SPEC #: [id number] RECD: 03/02/25 12:55 STATUS: ALFREDO REQ #: [id number] RADHA: 03/02/25 12:[address]: Arabella Silverman DEPT: [facility] Cytology RECD BY: Abigail Owen ENTERED: 03/02/25 12:56 SP TYPE: BELL HASSAN DR: Jann Knight MD Tissues: 1 - BODY FLUID CYTO-FINE NEEDLE ASPIRATE-[facility] Procedures: BODY FLUID CYTO-FINE NEEDLE ASPIRATE-[facility] Comments: [id number] (PATH FNA CONSULT) (REFRIGERATED)
--- NOTE | 2025-03-02 13:08 | W.PROCNOTE ---
Date of service: 03/02/25 Time of Service: 13:09 Procedure Note Date of procedure: 03/02/25 Procedure: Ultrasound-guided FNA, right thyroid nodule, pathology present Surgeon/Proceduralist/Physician: Barrett Keller Procedure Diagnosis: Right thyroid nodule meeting criteria for biopsy Procedure Indications: The patient has a right sided thyroid nodule that meets criteria for biopsy. Options were explained to the patient regarding further management. He elected to undergo the above procedure. Consent was well and signed prior to procedure. We reviewed the risks including bleeding, infection, need for further treatment and he still wished to proceed. Procedure Description: The patient was positioned in a supine position with his neck slightly extended. 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 He was prepped and draped in appropriate fashion and 1% lidocaine with 1/100,000 epinephrine was injected in the skin and subcutaneous tissues overlying the medial aspect of the thyroid nodule. Using ultrasound for guidance, a 25-gauge needle was then passed into the thyroid nodule, and then the specimen was handed to pathology who verified adequate cellularity. An additional pass was made for CytoLyt and then 2 additional passes were made for potential Afirma testing. All passes were done under ultrasound guidance. After ensuring adequate hemostasis, a sterile dressing was applied and the patient was allowed to sit, stand, and ambulate. His vital signs remained stable. He will remove the bandage later on today and not replace it. He will avoid any strenuous activity today. He may use Tylenol or ibuprofen for any discomfort at the biopsy site. He will call if he does not hear from me within 1 week with regard to pathology. He will call with any signs of infection or any other concerns. He had no further questions. He is comfortable with the plan.
== END 2025-03-02 03:53 ==
LOC: DI 03:33
PROVIDERS: PCP Family Medicine; Visit Provider Registered Nurse Maternal Newborn
DX: E04.1 Nontoxic single thyroid nodule (principal)
CPT/HCPCS: 10005; 76942; 88104

== ENCOUNTER 2025-04-13 00:53 | Outpatient (CLI) | payer MEDICARE, SELFPAY ==
--- NOTE | 2025-04-13 06:15 | DI.US_ITS ---
APPROVED REPORT EXAM: Comprehensive 2D, Doppler, and color-flow Echocardiogram Patient Location: Out-Patient Lining Stuffer: Rachana Gates RDCS (AE) Indications: Check AVR Other Information Study Quality: Adequate Conclusion Normal left ventricular wall thickness and chamber size. Ejection fraction is 60%. Wall motion is normal Grossly normal right ventricular size and function Both atria are mildly dilated There is a bioprosthetic aortic valve. There is no aortic regurgitation. Mean gradient is 17 mmHg There is no additional significant valvular disease Wall motion Left Ventricle The left ventricle is normal size. The left ventricular systolic function is normal. The left ventricular ejection fraction is within the normal range. There is normal left ventricular wall thickness. There is normal LV segmental wall motion. There is no ventricular septal defect visualized. LVEF is 60%. Right Ventricle Right ventricle is grossly normal in size. Right ventricular systolic function is grossly normal. Atria Left atrium is mildly dilated. Right atrium is mildly dilated. The interatrial septum is intact with no evidence for an atrial septal defect. Aortic Valve Mean gradient is 17 mmHg No aortic regurgitation is present. Bioprosthetic aortic valve is present. Mitral Valve The mitral valve is normal in structure. No evidence of mitral valve stenosis. Trace mitral regurgitation. Tricuspid Valve The tricuspid valve is normal in structure. There is no tricuspid valve stenosis. Trace tricuspid regurgitation. Unable to assess PA pressure. Pulmonic Valve The pulmonary valve is normal in structure. There is no pulmonic valvular stenosis. Trace pulmonic regurgitation. Great Vessels The aortic root is normal in size. The ascending aorta is normal in size. Aortic arch is not well visualized. IVC is normal in size and collapses >50% with inspiration. Pericardium There is no pericardial effusion. 2D Dimensions IVSD d PLAX 0.91 cm M: 0.6-1.2 Ao Root d 3.02 cm M: 3.1 - 3.7 LVPW d PLAX 0.90 cm M: 0.6 - 1.2 Ao Asc Diam d 3.19 cm M: 2.6 - 3.4 LVID d PLAX 4.42 cm M: 4.2 - 5.8 LVDs 2.85 cm M: 2.5 - 4.0 LV EF Teichholz 65.3 % FS 35.65 % LV EDV (Teich) 88.8 mL LV ESV (Teich) 30.8 mL M-Mode TAPSE 1.49 cm (M/F) >1.7 Auto EF LV EDV A4C 156.8 mL LV EDV A2C 137.9 mL LV EDV BP 147.5 mL LV ESV A4C 62.6 mL LV ESV A2C 57.9 mL LV ESV BP 59.7 mL LVEF(%) A4C 60.1 % LVEF(%) A2C 58.0 % LVEF(%) BP 59.5 % LV SV A4C 94.2 ml LV SV A2C 80.0 ml LV SV BP 87.9 ml LV CO A4C 6.7 L/min LV CO A2C 5.5 L/min LV CO BP 6.1 L/min HR A4C 71.15 BPM HR A2C 68.71 BPM LV EDV Index (BP) LA Volume LA Length A4C 6.7 cm LA Length A2C 6.7 cm LA Area A4C s 25.97 cm2 LA Area A2C s 26.07 cm2 LA Vol A4C A-L 85.75 mL LA Vol A2C A-L 85.58 mL LA Vol Biplane A-L 86.1 mL LA Vol/BSA A4C A-L LA Vol/BSA A2C A-L LA Vol/BSA BP A-L 43.5 mL/m2 LA Vol A4C MOD 80.7 mL LA Vol A2C MOD 80.3 mL LA Vol BP MOD 80.7 mL RA Volume RA Area A4C 22.9 cm2 RA ESV A4C (A-L) 76.4mL RA Vol/BSA A4C A-L RA Length A4C 5.8 cm RA ESV A4C (MOD) 69.5mL LV Diastology MV E' medial 0.082 (>0.07 m/s) MV E Vmax 1.18 (0.4-1.3 m/s) MV E/E' MED 14.29 (<14) MV A Vmax 1.05 (0.4-1.3 m/s) MV E' lateral 0.070 (>0.1 m/s) E/A Ratio 1.1 MV E/E' LAT 16.94 (<14) MV E' Average 0.076 m/s MV E/E'(average) 15.50 Aortic Valve AoV Vmax 2.81 m/s LVOT Vmax 1.06 m/s AoV Peak Grad 31.6 mmHg LVOT Peak Grad 4.5 mmHg AoV Area (Vmax) 1.15 cm2 LVOT VTI 0.264 m AoV VTI 0.591 m LVOT Mean Grad 2.8 mmHg AoV Mean Jose. 1.92 m/s LVOT SV 79.99 mL AoV Mean Grad 17.0 mmHg LVOT Diam s 1.95 cm AoV Area (VTI) 1.35 cm2 AV Regurg Peak Gr. 31.56 mmHg Velocity Ratio 0.38 Mitral Valve MV DT 198 (160-240 msec) MV Vmax TIPS 1.18 m/s MV Mean Grad 2.9 (<2mmHg) MV VTI 0.461 m Pulmonary Valve PV Vmax 0.97 (0.5-1.5 m/s) RVOT Vmax 0.76 m/s PV Peak Grad 3.7 mmHg RVOT Peak Gr. 2.3 mmHg PV Mean Jose 0.73 m/s RVOT VTI 0.175 m PV Mean Grad 2.4 mmHg RVOT Mean Gr. 1.4 mmHg Tricuspid Valve TV S' 0.09 m/s
== END 2025-04-13 01:13 ==
LOC: DI 00:53
PROVIDERS: PCP Family Medicine; Visit Provider Internal Medicine Cardiovascular Disease
DX: I51.7 Cardiomegaly (principal); Z95.2 Presence of prosthetic heart valve
CPT/HCPCS: 93306

== ENCOUNTER 2025-06-09 09:27 | Outpatient (CLI) | payer MEDICARE, SELFPAY ==
--- NOTE | 2025-06-09 09:15 | DI.RAD_ITS ---
Exam(s) XR WRIST RT COMPLETE EXAM: XR WRIST RT COMPLETE CLINICAL HISTORY: R wrist pain. TECHNIQUE: 2D digital imaging was performed of the right wrist. Three views were obtained. PA, lateral and oblique views were obtained. COMPARISON: No exams were available for comparison FINDINGS: BONES: No acute fracture is present. No bony destructive lesion is seen. JOINTS: Marked narrowing of the radio scaphoid joint with [id number]. Subchondral sclerosis and deformity of the articular surface of the radius is noted. At the 1st CMC joint there is also marked joint space narrowing and osteophytosis. There also mild degenerative changes seen at the triscaphe j oint. There is also marked narrowing at the articulation between the lunate and the capitate with subchondral sclerosis. SOFT TISSUE: There is soft tissue swelling of the wrist. Vascular calcification is present. 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 DATA REPOSITORY: RADIATION DOSE DELIVERED:
== END 2025-06-09 09:28 | disposition home or self-care (01) ==
LOC: DIORS 09:27
PROVIDERS: PCP Family Medicine; Referring Provider Family Medicine; Visit Provider Physician Assistant
DX: M18.11 Unilateral primary osteoarthritis of first carpometacarpal joint, right hand (principal); G56.01 Carpal tunnel syndrome, right upper limb
CPT/HCPCS: 99213; 73110

== ENCOUNTER 2025-06-15 16:02 | Outpatient (CLI) | payer MEDICARE, SELFPAY ==
--- NOTE | 2025-06-15 14:15 | DI.RAD_ITS ---
Exam(s) XR SHOULDER LT COMPLETE 2+V EXAM: XR SHOULDER LT COMPLETE 2+V CLINICAL HISTORY: LEFT SHOULDER PAIN. TECHNIQUE: 2D digital imaging was performed. Four views. COMPARISON: No exams were available for comparison FINDINGS: BONES: No acute fracture is present. No bony destructive lesion is seen. Sternal wires. Aortic valve prosthesis. JOINTS: The humeral head is high riding, articulating with the undersurface of the acromion. There is prominent spurring at the acromion. There are degenerative changes of the AC joint and glenohumeral joint. SOFT TISSUE: Normal. IMPRESSION: The humeral head is high riding, consistent with chronic rotator cuff tear. DATA REPOSITORY: RADIATION DOSE DELIVERED:
== END 2025-06-15 16:03 | disposition home or self-care (01) ==
LOC: DIORS 16:02
PROVIDERS: PCP Family Medicine; Referring Provider Family Medicine; Visit Provider Physician Assistant
DX: M75.102 Unspecified rotator cuff tear or rupture of left shoulder, not specified as traumatic (principal); M12.812 Other specific arthropathies, not elsewhere classified, left shoulder; S46.212A Strain of muscle, fascia and tendon of other parts of biceps, left arm, initial encounter; X58.XXXA Exposure to other specified factors, initial encounter
CPT/HCPCS: 99213; 20610; J1010; 73030